=== PATIENT | male | born 1950 | race African-American/Black ===

== ENCOUNTER 2017-03-17 12:51 | Emergency (ER) | payer MEDICARE, OTHER ==
[2017-03-17 13:01] VITALS: RESP 16
[2017-03-17 13:19] LABS: Glucose,Whole Blood 199 mg/dL (75-99)
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
[2017-03-17] MEDS ORDERED: amLODIPine 5 MG TAB PO STA (13:46)
[2017-03-17] MEDS ORDERED: cloNIDine HCL 0.2 MG TAB PO STA (13:48)
[2017-03-17] MEDS ORDERED: ATENOLOL 25 MG TAB PO STA (13:48)
[2017-03-17 14:58] VITALS: PULSE 77; TEMP 97.8
[2017-03-17] MEDS ORDERED: LORazepam 1 MG TAB PO STA (15:00)
[2017-03-17 15:43] VITALS: BP 196/90
== END 2017-03-17 15:52 | disposition home or self-care (01) ==
LOC: EC 12:51
DX: R45.4 Irritability and anger (principal); I10 Essential (primary) hypertension; E11.9 Type 2 diabetes mellitus without complications; Z88.5 Allergy status to narcotic agent; Z88.6 Allergy status to analgesic agent; Z88.8 Allergy status to other drugs, medicaments and biological substances; Z79.4 Long term (current) use of insulin; Z79.899 Other long term (current) drug therapy
CPT/HCPCS: 36415; 80306; 82075; 99284

== ENCOUNTER → 2017-03-24 | Outpatient (CLI) | payer MEDICARE, OTHER ==
[2017-03-24 11:33] LABS: Basophils # (A) 0.1 k/uL (0-0.2); Basophils % (A) 1 %; CH 26.5; CHCM 30.7; Eosinophils # (A) 0.1 k/uL (0-0.7); Eosinophils % (A) 1 %; HCT 40.4 % (39.0-53.0); HDW 2.54; HGB 12.1 gm/dL (13.0-17.5); Hypochromasia Moderate; Luc # (Auto) 0.24; Luc % (Auto) 4; Lymphocytes # (A) 2.2 k/uL (1.0-4.8); Lymphocytes % (A) 32 %; MCH 25.9 pg (25.0-35.0); MCHC 29.9 g/dL (31.0-37.0); MCV 86.8 fL (80.0-100.0); Monocytes # (A) 0.4 k/uL (0-1.0); Monocytes % (A) 6 %; Neutrophils % (A) 57 %; RBC 4.65 m/uL (4.30-5.90); RDW 14.7 % (11.5-15.5); WBC (Perox) 6.95
[2017-03-24 11:38] LABS: ALT 40 U/L (21-72); AST 27 U/L (17-59); Alkaline Phosphatase 111 U/L (38-126); Anion Gap 16 mmol/L; Blood Urea Nitrogen 17 mg/dL (9-20); Calcium 10.7 mg/dL (8.4-10.2); Carbon Dioxide 23 mmol/L (22-30); Chloride 107 mmol/L (98-107); Cholesterol 234 mg/dL (<200); Glucose 168 mg/dL (74-99); HDL Cholesterol 56 mg/dL (40-60); Iron 71 ug/dL (49-181); Non-African American GFR(MDRD) >60 (>60 ml/min/1.73 sqM); Potassium 4.2 mmol/L (3.5-5.1); Sodium 146 mmol/L (137-145); Total Bilirubin 0.4 mg/dL (0.2-1.3); Total Protein 8.4 g/dL (6.3-8.2); Triglycerides 289 mg/dL (<150)
[2017-03-24 11:46] LABS: Total Iron Binding Capacity 322 ug/dL (261-462)
== END | disposition home or self-care (01) ==
LOC: LABWHC1 10:08
PROVIDERS: ATTEND Family Medicine
DX: E11.9 Type 2 diabetes mellitus without complications (principal)
CPT/HCPCS: 36415; 80053; 80061; 82728; 83036; 83540; 83550; 85025

== ENCOUNTER 2017-06-11 14:58 | Emergency (ER) | payer MEDICARE, OTHER ==
[2017-06-11 15:18] VITALS: RESP 16
[2017-06-11 15:28] VITALS: TEMP 99.7
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
[2017-06-11 17:36] VITALS: BP 165/77; PULSE 55
== END 2017-06-11 17:36 | disposition home or self-care (01) ==
LOC: EC 14:58
DX: Z76.0 Encounter for issue of repeat prescription (principal); M54.9 Dorsalgia, unspecified; G89.29 Other chronic pain; E11.9 Type 2 diabetes mellitus without complications; I10 Essential (primary) hypertension; Z79.4 Long term (current) use of insulin; Z79.899 Other long term (current) drug therapy; Z88.6 Allergy status to analgesic agent; Z88.8 Allergy status to other drugs, medicaments and biological substances
CPT/HCPCS: 99282

== ENCOUNTER 2017-06-21 16:52 | Emergency (ER) | payer MEDICARE, OTHER ==
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
[2017-06-21] MEDS ORDERED: cloNIDine HCL 0.1 MG TAB PO STA (17:43)
[2017-06-21] MEDS ORDERED: HYDROmorphone 1 MG/ML 1 ML SYRINGE IM STA (17:43)
[2017-06-21] MEDS ORDERED: ONDANSETRON ODT 4 MG TAB PO STA (17:45)
[2017-06-21] MEDS ORDERED: LISINOPRIL 20 MG TAB PO STA (18:47)
[2017-06-21 19:40] VITALS: BP 185/86; PULSE 69; RESP 16; TEMP 98.6
== END 2017-06-21 19:39 | disposition home or self-care (01) ==
LOC: EC 16:52
DX: M54.5 Low back pain (principal); F11.20 Opioid dependence, uncomplicated; M21.932 Unspecified acquired deformity of left forearm; E11.9 Type 2 diabetes mellitus without complications; I10 Essential (primary) hypertension; Z88.6 Allergy status to analgesic agent; Z88.5 Allergy status to narcotic agent; Z88.8 Allergy status to other drugs, medicaments and biological substances; Z79.4 Long term (current) use of insulin; Z79.899 Other long term (current) drug therapy
CPT/HCPCS: 99283; 96372; J1170

== ENCOUNTER 2017-08-21 17:31 | Emergency (ER) | payer MEDICARE, OTHER ==
[2017-08-21 17:55] VITALS: BP 151/72; PULSE 71; RESP 16; TEMP 99.1
[2017-08-21] MEDS ORDERED: ACET/COD 300 MG/30 MG STARTER PACK 6 TAB BTL PO STA (18:12)
[2017-08-21] MEDS ORDERED: CYCLOBENZAPRINE 10MG STARTER 3 TAB BTL PO STA (18:13)
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
== END 2017-08-21 19:03 | disposition home or self-care (01) ==
LOC: EC 17:31
DX: G89.29 Other chronic pain (principal); M54.5 Low back pain; E11.9 Type 2 diabetes mellitus without complications; F20.9 Schizophrenia, unspecified; F31.9 Bipolar disorder, unspecified; Z79.899 Other long term (current) drug therapy; Z88.5 Allergy status to narcotic agent; Z88.6 Allergy status to analgesic agent; Z88.8 Allergy status to other drugs, medicaments and biological substances
CPT/HCPCS: 99283

== ENCOUNTER 2017-12-22 23:58 | Emergency (ER) | payer MEDICARE, OTHER ==
[2017-12-23] MEDS ORDERED: HYDROcodone/APAP 10-325MG 1 EACH TAB PO ONE (00:29)
[2017-12-23] MEDS ORDERED: cloNIDine HCL 0.2 MG TAB PO STA (00:39)
--- NOTE | 2017-12-23 01:04 | US ---
EXAMINATION TYPE: US duplex aorta DATE OF EXAM: 12/23/2017 COMPARISON: NONE CLINICAL HISTORY: Back pain, that radiates to his leg. EXAM MEASUREMENTS: Patient 5'8" 240lbs, carrying most of his weigh in his abdomen, 2 hours post prandial. Exam not diagn ostic. Abdominal Aorta: Proximal: obscured by bowel gas Mid: obscured by bowel gas Distal: 1.4cm Bifurcation: obscured by bowel gas IMPRESSION: There is limited visualization of the abdominal aorta. The distal aorta measures 1.4 cm. No aneurysm seen.
[2017-12-23] MEDS ORDERED: DIAZEPAM 5 MG TAB PO STA (01:18)
[2017-12-23 01:39] LABS: Appearance,Urine Clear (Clear); Bilirubin,Urine Negative (Negative); Blood,Urine Negative (Negative); Color,Urine Light Yellow; Glucose,Urine (UA) Negative (Negative); Hyaline Casts,Urine 4 /lpf (0-2); Ketones,Urine Negative (Negative); Leukocyte Esterase,Urine Negative (Negative); Mucus,Urine Rare /hpf; Nitrite,Urine Negative (Negative); Protein,Urine 2+ (Negative); Specific Gravity,Urine 1.011 (1.001-1.035); Sperm,Urine Rare /hpf; Squamous Epithelial Cell,Urine <1 /hpf (0-4); Urobilinogen,Urine <2.0 mg/dL (<2.0); WBC,Urine 1 /hpf (0-5)
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
[2017-12-23 02:22] VITALS: BP 172/81; PULSE 115; RESP 16; TEMP 98.7
== END 2017-12-23 02:22 | disposition home or self-care (01) ==
LOC: EC 23:58
DX: M54.5 Low back pain (principal); G89.29 Other chronic pain; F11.20 Opioid dependence, uncomplicated; Z76.0 Encounter for issue of repeat prescription; E11.9 Type 2 diabetes mellitus without complications; F31.9 Bipolar disorder, unspecified; F41.9 Anxiety disorder, unspecified; F20.9 Schizophrenia, unspecified; Z79.4 Long term (current) use of insulin; Z79.899 Other long term (current) drug therapy; Z88.6 Allergy status to analgesic agent; Z88.8 Allergy status to other drugs, medicaments and biological substances
CPT/HCPCS: 81001; 93979; 99284

== ENCOUNTER 2018-02-25 14:12 | Emergency (ER) | payer MEDICARE, OTHER ==
[2018-02-25 14:47] VITALS: BP 168/79; PULSE 80; RESP 18; TEMP 99.2
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
== END 2018-02-25 15:56 | disposition home or self-care (01) ==
LOC: EC 14:12
DX: M54.5 Low back pain (principal); M51.36 Other intervertebral disc degeneration, lumbar region; S16.1XXA Strain of muscle, fascia and tendon at neck level, initial encounter; M46.96 Unspecified inflammatory spondylopathy, lumbar region; E11.36 Type 2 diabetes mellitus with diabetic cataract; F20.9 Schizophrenia, unspecified; F31.9 Bipolar disorder, unspecified; Z79.4 Long term (current) use of insulin; Z79.899 Other long term (current) drug therapy; Z88.6 Allergy status to analgesic agent; Z88.5 Allergy status to narcotic agent; Z88.8 Allergy status to other drugs, medicaments and biological substances; W10.9XXA Fall (on) (from) unspecified stairs and steps, initial encounter; Y92.009 Unspecified place in unspecified non-institutional (private) residence as the place of occurrence of the external cause; Y93.89 Activity, other specified
CPT/HCPCS: 72100; 99283

== ENCOUNTER 2018-02-26 02:26 | Emergency (ER) | payer MEDICARE, OTHER | END 2018-02-26 05:00 | disposition home or self-care (01) | LOC: EC 02:26 | DX: G89.29 Other chronic pain (principal); M54.5 Low back pain; I10 Essential (primary) hypertension; E11.9 Type 2 diabetes mellitus without complications; Z79.4 Long term (current) use of insulin; Z79.82 Long term (current) use of aspirin; Z79.899 Other long term (current) drug therapy; Z88.5 Allergy status to narcotic agent; Z88.6 Allergy status to analgesic agent; Z88.8 Allergy status to other drugs, medicaments and biological substances; W01.0XXA Fall on same level from slipping, tripping and stumbling without subsequent striking against object, initial encounter | CPT/HCPCS: 96372; 99283 ==

== ENCOUNTER 2018-03-24 13:21 | Emergency (ER) | payer MEDICARE, OTHER ==
[2018-03-24 13:25] VITALS: BP 169/79; PULSE 77; RESP 18; TEMP 98.5
[2018-03-24] MEDS ORDERED: HYDROcodone/APAP 10-325MG 1 EACH TAB PO ONE (13:59)
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
--- NOTE | 2018-03-24 14:38 | CT ---
EXAMINATION TYPE: CT brain cspine wo con DATE OF EXAM: 03/24/2018 COMPARISON: CT brain July 25, 2017. CT cervical spine September 13, 2016. HISTORY: Dizziness and fall injury with neck pain. CT DLP: 1704.3 mGycm. Automated Exposure Control for Dose Reduction was Utilized. TECHNIQUE: CT scan of the head and cervical spine are performed without contrast. FINDINGS: There is no acute intracranial hemorrhage or midline shift identified. There is ventricul ar and sulcal prominence consistent with diffuse cerebral atrophy. There is encephalomalacia left po sterior watershed axial image 31 with interval progression from prior CT. There is more vague area of low-attenuation high left frontal parietal white matter. The globes are intact and the visualized si nuses are clear. The calvarium is intact. Cervical spine is visualized in its entirety from C1 through upper thoracic levels and demonstrates s light S-shaped scoliotic curvature on coronal images and straightening of spine on sagittal images wi thout evidence of acute fracture or dislocation. Prevertebral soft tissue appears within normal limi ts. The C1-C2 articulation is within normal limits on the coronal images. Vertebral body heights are maintained. There is mild to moderate spurring and disc space narrowing C5 -C6 and C6-C7 levels with posterior spur disc complexes effacing anterior thecal sac. Review of axial images shows multilevel uncovertebral facet degenerative changes bilaterally contributing to multile jp neural foraminal narrowing. Thyroid gland is normal in size. Lung apices are clear. There is dila harish proximal esophagus redemonstrated which may warrant follow-up. Correlate clinically. There is mod erate calcified plaque bilateral carotid bulb level redemonstrated. IMPRESSION: 1. There is no acute fracture or dislocation evident in the cervical spine. Multilevel degenerative c hanges seen as detailed above. 2. No acute intracranial hemorrhage or midline shift is seen. Diffuse cerebral atrophy with old left posterior watershed infarct identified. There is some age-indeterminate ischemic change new from prio r exam superior and anterior to this left frontal parietal deep white matter near axial image 37 note d. Can't exclude acute/subacute ischemia. Consider MRI follow-up based on clinical suspicion.
[2018-03-24] MEDS ORDERED: SODIUM CHLORIDE 0.9% 1,000 ML IV STA (15:16)
== END 2018-03-24 15:32 | disposition left against medical advice (07) ==
LOC: EC 13:21
DX: I67.82 Cerebral ischemia (principal); M54.2 Cervicalgia; M54.5 Low back pain; M51.36 Other intervertebral disc degeneration, lumbar region; E11.9 Type 2 diabetes mellitus without complications; I10 Essential (primary) hypertension; F25.0 Schizoaffective disorder, bipolar type; F25.1 Schizoaffective disorder, depressive type; Z86.73 Personal history of transient ischemic attack (TIA), and cerebral infarction without residual deficits; Z79.4 Long term (current) use of insulin; Z79.82 Long term (current) use of aspirin; Z79.899 Other long term (current) drug therapy; Z88.6 Allergy status to analgesic agent; Z88.8 Allergy status to other drugs, medicaments and biological substances; W01.0XXA Fall on same level from slipping, tripping and stumbling without subsequent striking against object, initial encounter; W20.8XXA Other cause of strike by thrown, projected or falling object, initial encounter; Y92.008 Other place in unspecified non-institutional (private) residence as the place of occurrence of the external cause; Y93.01 Activity, walking, marching and hiking
CPT/HCPCS: 70450; 72110; 72125; 99284

== ENCOUNTER 2018-04-20 01:53 | Emergency (ER) | payer MEDICARE, OTHER ==
[2018-04-20 02:11] VITALS: BP 174/74; PULSE 82; RESP 18; TEMP 99.4
[2018-04-20] MEDS ORDERED: HYDROcodone/APAP 5-325MG 1 EACH TAB PO STA (03:15)
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
== END 2018-04-20 03:47 | disposition home or self-care (01) ==
LOC: EC 01:53
DX: Z76.0 Encounter for issue of repeat prescription (principal); E11.9 Type 2 diabetes mellitus without complications; I10 Essential (primary) hypertension; M19.90 Unspecified osteoarthritis, unspecified site; F41.9 Anxiety disorder, unspecified; F31.9 Bipolar disorder, unspecified; F20.9 Schizophrenia, unspecified; Z86.73 Personal history of transient ischemic attack (TIA), and cerebral infarction without residual deficits; Z79.4 Long term (current) use of insulin; Z79.84 Long term (current) use of oral hypoglycemic drugs; Z79.899 Other long term (current) drug therapy
CPT/HCPCS: 99281

== ENCOUNTER 2018-04-20 04:10 | Emergency (ER) | payer MEDICARE, OTHER ==
[2018-04-20 04:22] VITALS: TEMP 98.8
[2018-04-20] MEDS ORDERED: DIPH,PERTUS(ACELL)TETVAC-LF 0.5 ML VIAL IM ONE (05:28)
[2018-04-20 05:55] VITALS: RESP 16
--- NOTE | 2018-04-20 05:55 | CT ---
EXAMINATION TYPE: CT brain vikas lockhart DATE OF EXAM: 04/20/2018 COMPARISON: 03/24/2018 HISTORY: fall CT DLP: 1463.50 mGycm Automated exposure control for dose reduction was used. TECHNIQUE: CT scan of the head and cervical spine are performed without contrast. FINDINGS: Ventricles of normal size. There is old 4 cm triangular-shaped infarct in the left painter and body work ior temporal lobe. There is no mass effect nor midline shift. There is no sign of intracranial hemorr demetra. The calvarium is intact. There is straightening of the cervical vertebra. There is mild spurring anteriorly at the 3 4 C4-5 C5 -6 C6-7. There is multilevel posterior endplate spur formation and more severe at C5-6 C6-7 with some encroachment on the spinal canal. The facet joints are intact. Skull base appears intact. There is n o evidence of a fracture. IMPRESSION: Old left posterior temporal lobe cortical infarct. No acute intracranial abnormality. No change. Spondylotic changes in the cervical spine. No fracture. No change.
--- NOTE | 2018-04-20 05:56 | XR ---
EXAMINATION TYPE: XR knee complete RT DATE OF EXAM: 04/20/2018 COMPARISON: NONE HISTORY: Knee pain after a fall TECHNIQUE: 3 views FINDINGS: There is spurring in the patella. There is spurring at the tibial tubercle. There is old di stal femur bone infarct. I see no fracture nor dislocation. There is no sign of joint effusion. Joint spaces are fairly normal. IMPRESSION: No acute abnormality of the right knee. No fracture.
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
[2018-04-20 07:29] VITALS: BP 180/88; PULSE 78
== END 2018-04-20 07:22 | disposition home or self-care (01) ==
LOC: EC 04:10
DX: S80.211A Abrasion, right knee, initial encounter (principal); S60.512A Abrasion of left hand, initial encounter; S09.90XA Unspecified injury of head, initial encounter; S19.9XXA Unspecified injury of neck, initial encounter; I69.351 Hemiplegia and hemiparesis following cerebral infarction affecting right dominant side; E11.9 Type 2 diabetes mellitus without complications; I10 Essential (primary) hypertension; M19.90 Unspecified osteoarthritis, unspecified site; F20.9 Schizophrenia, unspecified; F31.9 Bipolar disorder, unspecified; Z79.4 Long term (current) use of insulin; Z79.82 Long term (current) use of aspirin; Z79.899 Other long term (current) drug therapy; Z88.5 Allergy status to narcotic agent; Z88.6 Allergy status to analgesic agent; Z88.8 Allergy status to other drugs, medicaments and biological substances; Z98.890 Other specified postprocedural states; Z23 Encounter for immunization; W01.198A Fall on same level from slipping, tripping and stumbling with subsequent striking against other object, initial encounter; Y93.01 Activity, walking, marching and hiking; Y92.89 Other specified places as the place of occurrence of the external cause
CPT/HCPCS: 70450; 72125; 90471; 90715; 99281; 99284

== ENCOUNTER 2018-04-25 20:42 | Emergency (ER) | payer MEDICARE, OTHER ==
[2018-04-25 20:51] VITALS: RESP 18; TEMP 99.6
[2018-04-25] MEDS ORDERED: KETOROLAC 30 MG/ML 1 ML VIAL IM STA (21:08)
[2018-04-25 21:25] VITALS: BP 177/82; PULSE 74
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
== END 2018-04-25 22:31 | disposition home or self-care (01) ==
LOC: EC 20:42
DX: G89.29 Other chronic pain (principal); M25.561 Pain in right knee; M25.532 Pain in left wrist; E11.9 Type 2 diabetes mellitus without complications; I10 Essential (primary) hypertension; F20.9 Schizophrenia, unspecified; F31.9 Bipolar disorder, unspecified; F41.9 Anxiety disorder, unspecified; Z86.73 Personal history of transient ischemic attack (TIA), and cerebral infarction without residual deficits; Z79.4 Long term (current) use of insulin; Z79.82 Long term (current) use of aspirin; Z79.899 Other long term (current) drug therapy; Z88.5 Allergy status to narcotic agent; Z88.6 Allergy status to analgesic agent; Z88.8 Allergy status to other drugs, medicaments and biological substances
CPT/HCPCS: 99283; 96372; J1885

== ENCOUNTER 2018-05-13 12:28 | Inpatient (IN) | payer MEDICARE, OTHER ==
--- NOTE | 2018-05-13 15:12 | CT ---
EXAMINATION TYPE: CT brain [facility] DATE OF EXAM: 05/13/2018 COMPARISON: HISTORY: Pain post fall. CT DLP: 1212.4 mGycm, Automated exposure control for dose reduction was used. CONTRAST: Patient injected with mL of . CT of the brain is performed utilizing 3 mm thick sections through the posterior fossa and 3 mm thick sections through the remaining calvarium. Study is performed within 24 hours of arrival to the hospital. No abnormal hyperdensity is present to suggest an acute intracranial hemorrhage. No mass lesion is evident. There is an old left watershed infarct. Some ischemic change is present in the anterior left watershed region which is an interval finding. C orrelate with the patient's symptoms. This is age indeterminant. Ventricles and sulci are appropriate for the patient age. Paranasal sinuses and mastoid air cells within the [id number] are clear. IMPRESSIONS: 1. There may be an acute to subacute left frontal watershed infarct. 2. Old left parieto-occipital watershed infarct. CT cervical spine. COMPARISON: None CT of the cervical spine is performed in the axial plane at 2 mm thick sections. Reconstructed image s in the coronal, and sagittal plane are reviewed on the computer. No acute fractures are evident. Vertebral body alignment is straightened. There is diffuse narrowing of disc height. This appears greatest at the C5-6 level. Vertebral body heights are preserved. Endplate spurring is present at the superior endplate of C6. This has moderate anterior thecal sac co mpression slightly greater in the left paracentral region in the right. Borderline spinal canal sten osis is present posterior to the spurring. Uncovertebral joint hypertrophy is present C7-T1, C6-7, C5-6 and to a lesser degree C4-5 and left C3- 4 contributing to moderate foraminal narrowing. IMPRESSIONS: 1. Spinal canal stenosis secondary to endplate spurring C6-7. 2. Uncovertebral joint hypertrophy contributing to bilateral foraminal narrowing into lower cervical spine
[2018-05-13] MEDS ORDERED: SODIUM CHLORIDE 0.9% 1,000 ML IV STA ×2 (15:25)
[2018-05-13] MEDS ORDERED: SODIUM CHLORIDE 0.9% 500 ML IV STA (15:25)
[2018-05-13] MEDS ORDERED: ASPIRIN 325 MG TAB PO STA (15:25)
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
[2018-05-13 16:24] LABS: Basophils # (A) 0.1 k/uL (0-0.2); Basophils % (A) 1 %; Eosinophils # (A) 0.2 k/uL (0-0.7); Eosinophils % (A) 4 %; HCT 35.7 % (39.0-53.0); HGB 11.3 gm/dL (13.0-17.5); Hypochromasia Slight; Lymphocytes # (A) 2.6 k/uL (1.0-4.8); Lymphocytes % (A) 36 %; MCH 26.1 pg (25.0-35.0); MCHC 31.5 g/dL (31.0-37.0); MCV 82.8 fL (80.0-100.0); Mean Platelet Volume 8.3; Monocytes # (A) 0.3 k/uL (0-1.0); Monocytes % (A) 5 %; Neutrophils # (A) 3.7 k/uL (1.3-7.7); Neutrophils % (A) 52 %; Platelet Count 202 k/uL (150-450); RBC 4.32 m/uL (4.30-5.90); RDW 14.8 % (11.5-15.5); WBC 7.1 k/uL (3.8-10.6)
[2018-05-13 16:33] LABS: Partial Thromboplastin Time 22.7 sec (22.0-30.0); Prothrombin Time 10.1 sec (9.0-12.0)
[2018-05-13 16:39] LABS: Albumin 4.3 g/dL (3.5-5.0); Potassium 5.3 mmol/L (3.5-5.1); Total Bilirubin 0.3 mg/dL (0.2-1.3); Total Protein 7.4 g/dL (6.3-8.2)
--- NOTE | 2018-05-13 16:48 | US ---
EXAMINATION TYPE: US carotid duplex BILAT DATE OF EXAM: 05/13/2018 COMPARISON: CT Brain and C spine CLINICAL HISTORY: Stenosis. EC patient with garbled speech EXAM MEASUREMENTS: RIGHT: Peak Systolic Velocity (PSV) cm/sec ----- Right CCA: 81.6 ----- Right ICA: 156.9 ----- Right ECA: 94.7 ICA/CCA ratio: 1.9 RIGHT: End Diastole cm/sec ----- Right CCA: 21.0 ----- Right ICA: 50.5 ----- Right ECA: 12.3 LEFT: Peak Systolic Velocity (PSV) cm/sec ----- Left CCA: 61.8 ----- Left ICA: inaudible and absent color flow mid and distal ICA ----- Left ECA: 127.1 ICA/CCA ratio: 1.1 achieved using Left Carotid Bulb PSV/ CCA LEFT: End Diastole cm/sec ----- Left CCA: 11.2 ----- Left ICA: NA ----- Left ECA: 15.0 VERTEBRALS (direction of flow): Right Vertebral: Antegrade Left Vertebral: Antegrade Rhythm: Normal High bifurcation is noted bilaterally. Abnormally elevated PSV proximal and distal right ICA with irr egular wall changes. Inaudible PW Arterial Doppler noted at Left ICA proximally and distally with absent color flow also n oted Left ICA. Left carotid bulb appears patient. Moderate to severe wall changes are seen at left ca rotid bifurcation. Poor to no color filling is also noted Left ECA distally. IMPRESSION: There is evidence of occlusion of the left internal carotid artery. The images and measu rements suggest 50-70% stenosis in the right internal carotid artery. There is antegrade flow in the vertebral arteries. Criteria for Assigning % of Stenosis / Diameter reduction (Estimation based on the indirect measurements of the internal carotid artery velocities (ICA PSV). 1. Normal (no stenosis)=ICA PSV < 125 cm/s: ratio < 2.0: ICA EDV<40 cm/s. 2. Less than 50% stenosis=ICA PSV < 125 cm/s: ratio < 2.0: ICA EDV<40 cm/s. 3. 50 to 69% stenosis=ICA PSV of 125 to 230 cm/s: ration 2.0 ? 4.0: ICA EDV 40-100 cm/s. 4. Greater than 70% stenosis to near occlusion= ICA PSV > 230 cm/s: ratio > 4.0: ICA EDV > 100 cm/s. 5. Near occlusion= ICA PSV velocities may be low or undetectable: variable ratio and ICA EDV. 6. Total occlusion=unable to detect flow.
[2018-05-13 16:54] LABS: Creatine Kinase 157 U/L (55-170)
[2018-05-13 17:06] LABS: Creatine Kinase MB 1.5 ng/mL (0.0-2.4); Troponin I <0.012 ng/mL (0.000-0.034)
[2018-05-13] MEDS: SODIUM CHLORIDE 0.9% 1,000 ML IV SCH (17:16)
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
[2018-05-13] MEDS ORDERED: ATORVASTATIN 80 MG TAB PO SCH (21:00)
[2018-05-13] MEDS: hydrALAZINE HCL 25 MG TAB PO SCH (21:40)
[2018-05-13] MEDS: LISINOPRIL 20 MG TAB PO SCH (21:40)
[2018-05-13] MEDS: CYCLOBENZAPRINE 10 MG TAB PO SCH (21:40)
[2018-05-13] MEDS ORDERED: HYDROcodone/APAP 10-325MG 1 EACH TAB PO SCH (22:00)
[2018-05-14] MEDS: SODIUM CHLORIDE 0.9% 1,000 ML IV SCH ×3 (03:28→21:04)
[2018-05-14 06:18] LABS: Glucose,Whole Blood 208 mg/dL (75-99)
[2018-05-14 06:24] LABS: Basophils % (A) 1 %; Eosinophils # (A) 0.1 k/uL (0-0.7); Eosinophils % (A) 2 %; HCT 32.9 % (39.0-53.0); HGB 10.3 gm/dL (13.0-17.5); Hypochromasia Slight; Lymphocytes # (A) 2.2 k/uL (1.0-4.8); Lymphocytes % (A) 37 %; MCHC 31.2 g/dL (31.0-37.0); MCV 83.2 fL (80.0-100.0); Mean Platelet Volume 8.9; Monocytes # (A) 0.3 k/uL (0-1.0); Monocytes % (A) 6 %; Neutrophils # (A) 3.2 k/uL (1.3-7.7); Neutrophils % (A) 52 %; Platelet Count 202 k/uL (150-450); RBC 3.95 m/uL (4.30-5.90); RDW 14.5 % (11.5-15.5)
[2018-05-14 06:36] LABS: Calcium 9.3 mg/dL (8.4-10.2); Magnesium 1.7 mg/dL (1.6-2.3); Potassium 4.9 mmol/L (3.5-5.1)
[2018-05-14] MEDS: HYDROcodone/APAP 10-325MG 1 EACH TAB PO PRN ×3 (06:49→23:26)
[2018-05-14] MEDS: PANTOPRAZOLE 40 MG TABLET PO SCH (06:49)
[2018-05-14] MEDS: CARVEDILOL 12.5 MG TAB PO SCH ×2 (06:49→15:47)
[2018-05-14] MEDS: INSULIN ASPART 100 UNIT/ML 1 ML 10 ML VIAL SQ SCH ×4 (06:51→20:53)
[2018-05-14] MEDS: FERROUS SULFATE 325 MG TAB PO SCH (08:34)
[2018-05-14] MEDS: CHOLECALCIFEROL 1,000 UNIT TAB PO SCH (08:34)
[2018-05-14] MEDS: SPIRONOLACTONE-HCTZ 25-25MG 1 EACH TAB PO SCH ×2 (08:34→21:04)
[2018-05-14] MEDS: FUROSEMIDE 40 MG TAB PO SCH (08:35)
[2018-05-14] MEDS: LISINOPRIL 20 MG TAB PO SCH ×2 (08:35→21:04)
[2018-05-14] MEDS: hydrALAZINE HCL 25 MG TAB PO SCH ×2 (08:35→21:04)
[2018-05-14] MEDS: amLODIPine 10 MG TAB PO SCH (08:35)
[2018-05-14] MEDS: CYCLOBENZAPRINE 10 MG TAB PO SCH ×3 (08:35→21:04)
[2018-05-14] MEDS: ASPIRIN 325 MG TAB PO SCH (08:36)
[2018-05-14] MEDS ORDERED: hydrALAZINE HCL 25 MG TAB PO SCH (09:00)
[2018-05-14] MEDS ORDERED: NON-FORMULARY DRUG (Aspirin Ec 325 MG) PO SCH (09:00)
[2018-05-14] MEDS ORDERED: LISINOPRIL 20 MG TAB PO SCH (09:00)
--- NOTE | 2018-05-14 11:41 | ECHOF ---
Referral Reason:Thrombus MEASUREMENTS -------- HEIGHT: 170.2 cm WEIGHT: 98.4 kg BP: 165/85 RVIDd: 3.4 cm (< 3.3) IVSd: 1.2 cm (0.6 - 1.1) LVIDd: 5.4 cm (3.9 - 5.3) LVPWd: 1.1 cm (0.6 - 1.1) IVSs: 1.5 cm LVIDs: 3.8 cm LVPWs: 1.9 cm LA Diam: 3.3 cm (2.7 - 3.8) LAESV Index (A-L): 23.66 ml/m Ao Diam: 3.8 cm (2.0 - 3.7) AV Cusp: 2.4 cm (1.5 - 2.6) MV EXCURSION: 15.965 mm (> 18.000) MV EF SLOPE: 88 mm/s (70 - 150) EPSS: 0.5 cm MV E Pardeep: 1.13 m/s MV DecT: 221 ms MV A Pardeep: 1.00 m/s MV E/A Ratio: 1.13 FINDINGS -------- Sinus rhythm. This was a technically excellent study. The left ventricular size is normal. There is borderline concentric left ventricular hypertrophy. Overall left ventricular systolic function is normal with, an EF between 60 - 65 %. The right ventricle is mildly enlarged. Normal LA size by volume 22+/-6 ml/m2. The right atrium is normal in size. The aortic valve is trileaflet and appears structurally normal. Mild mitral annular calcification present. The tricuspid valve appears structurally normal. Trace/mild (physiologic) pulmonic regurgitation. The aortic root is dilated measuring 3.8cm. Normal inferior vena cava with normal inspiratory collapse consistent with estimated right atrial pre ssure of 5 mmHg. There is no pericardial effusion. CONCLUSIONS -------- 1. Sinus rhythm. 2. This was a technically excellent study. 3. The left ventricular size is normal. 4. There is borderline concentric left ventricular hypertrophy. 5. Overall left ventricular systolic function is normal with, an EF between 60 - 65 %. 6. The right ventricle is mildly enlarged. 7. Normal LA size by volume 22+/-6 ml/m2. 8. The right atrium is normal in size. 9. The aortic valve is trileaflet and appears structurally normal. 10. Mild mitral annular calcification present. 11. The tricuspid valve appears structurally normal. 12. Trace/mild (physiologic) pulmonic regurgitation. 13. The aortic root is dilated measuring 3.8cm. 14. Normal inferior vena cava with normal inspiratory collapse consistent with estimated right atrial pressure of 5 mmHg. 15. There is no pericardial effusion. SECURITY SYSTEMS MANAGER: Josefina Ferraro RDCS
[2018-05-14 11:43] LABS: Glucose,Whole Blood 214 mg/dL (75-99)
[2018-05-14 16:28] LABS: Glucose,Whole Blood 280 mg/dL (75-99)
[2018-05-14 20:45] LABS: Glucose,Whole Blood 134 mg/dL (75-99)
[2018-05-14] MEDS ORDERED: ATORVASTATIN 40 MG TAB PO SCH (21:00)
[2018-05-14] MEDS: QUEtiapine 100 MG TAB PO SCH (21:04)
[2018-05-14] MEDS: ATORVASTATIN 10 MG TAB PO SCH (21:04)
[2018-05-14] MEDS: INSULIN DETEMIR 100 UNIT/ML 10 ML VIAL SQ SCH (21:04)
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
[2018-05-15 05:59] LABS: Glucose,Whole Blood 167 mg/dL (75-99)
[2018-05-15] MEDS: SODIUM CHLORIDE 0.9% 1,000 ML IV SCH ×3 (07:00→21:47)
[2018-05-15] MEDS: INSULIN ASPART 100 UNIT/ML 1 ML 10 ML VIAL SQ SCH ×4 (07:00→21:46)
[2018-05-15] MEDS: CARVEDILOL 12.5 MG TAB PO SCH ×2 (07:01→16:56)
[2018-05-15] MEDS: PANTOPRAZOLE 40 MG TABLET PO SCH (07:01)
[2018-05-15] MEDS: HYDROcodone/APAP 10-325MG 1 EACH TAB PO PRN (08:53)
[2018-05-15] MEDS: CHOLECALCIFEROL 1,000 UNIT TAB PO SCH (08:54)
[2018-05-15] MEDS: HEPARIN SODIUM,PORCINE 5,000 UNIT/ML 1 ML VIAL SQ SCH ×3 (08:54→23:56)
[2018-05-15] MEDS: FERROUS SULFATE 325 MG TAB PO SCH (08:54)
[2018-05-15] MEDS: hydrALAZINE HCL 25 MG TAB PO SCH ×2 (08:55→20:22)
[2018-05-15] MEDS: ASPIRIN 325 MG TAB PO SCH (08:55)
[2018-05-15] MEDS: LISINOPRIL 20 MG TAB PO SCH ×2 (08:55→20:22)
[2018-05-15] MEDS: amLODIPine 10 MG TAB PO SCH (08:55)
[2018-05-15] MEDS: SPIRONOLACTONE-HCTZ 25-25MG 1 EACH TAB PO SCH ×2 (08:56→20:23)
[2018-05-15] MEDS: FUROSEMIDE 40 MG TAB PO SCH (08:56)
[2018-05-15] MEDS: CYCLOBENZAPRINE 10 MG TAB PO SCH ×3 (08:56→20:23)
--- NOTE | 2018-05-15 10:42 | CT ---
EXAMINATION TYPE: CT brain wo con DATE OF EXAM: 05/15/2018 HISTORY: Follow up to left-sided CVA CT DLP: 1174 mGycm. Automated Exposure Control for Dose Reduction was Utilized. TECHNIQUE: CT scan of the head is performed without contrast. COMPARISON: CT brain from 2 days ago on older studies. FINDINGS: There is no acute intracranial hemorrhage or midline shift identified. There is diffuse v entricular and sulcal prominence consistent with diffuse age-related cerebral atrophy. There is low- attenuation in the periventricular white matter consistent with chronic small vessel ischemic change. There is persistent wedge-shaped area of old infarct or encephalomalacia left parietal region at lev el of posterior watershed axial image 35. There is further progression or slightly better visualized prominence of vague hypodense area left frontal lobe axial image 35 consistent with evolving acute in farct in the anterior watershed. Additional areas of encephalomalacia or old infarct in the superior left frontal lobe near axial image 44 redemonstrated. The globes are intact and the visualized sinuse s are clear. IMPRESSION: No acute intracranial hemorrhage or midline shift. There is mild diffuse age-related ce rebral atrophy and mild to moderate chronic small vessel ischemic change redemonstrated. Old left-si ded infarcts are again seen. There is confirmation of new acute/subacute left frontal lobe infarct an terior watershed region.
[2018-05-15 11:32] LABS: Glucose,Whole Blood 165 mg/dL (75-99)
[2018-05-15 11:50] VITALS: BMI 34.4
[2018-05-15 16:31] LABS: Glucose,Whole Blood 167 mg/dL (75-99)
[2018-05-15] MEDS: ATORVASTATIN 10 MG TAB PO SCH (20:22)
[2018-05-15] MEDS: QUEtiapine 100 MG TAB PO SCH (20:22)
[2018-05-15 21:36] LABS: Glucose,Whole Blood 174 mg/dL (75-99)
[2018-05-15] MEDS: INSULIN DETEMIR 100 UNIT/ML 10 ML VIAL SQ SCH (21:46)
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
[2018-05-16] MEDS: PANTOPRAZOLE 40 MG TABLET PO SCH (06:13)
[2018-05-16] MEDS: CARVEDILOL 12.5 MG TAB PO SCH ×2 (06:13→16:56)
[2018-05-16] MEDS: INSULIN ASPART 100 UNIT/ML 1 ML 10 ML VIAL SQ SCH ×4 (06:23→21:06)
[2018-05-16 06:24] LABS: Glucose,Whole Blood 101 mg/dL (75-99)
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
[2018-05-16] MEDS: HYDROcodone/APAP 10-325MG 1 EACH TAB PO PRN ×2 (09:40→16:59)
[2018-05-16] MEDS: HEPARIN SODIUM,PORCINE 5,000 UNIT/ML 1 ML VIAL SQ SCH ×3 (09:42→23:54)
[2018-05-16] MEDS: CHOLECALCIFEROL 1,000 UNIT TAB PO SCH (09:42)
[2018-05-16] MEDS: FUROSEMIDE 40 MG TAB PO SCH (09:42)
[2018-05-16] MEDS: amLODIPine 10 MG TAB PO SCH (09:42)
[2018-05-16] MEDS: ASPIRIN 325 MG TAB PO SCH (09:42)
[2018-05-16] MEDS: CYCLOBENZAPRINE 10 MG TAB PO SCH ×3 (09:43→19:42)
[2018-05-16] MEDS: SPIRONOLACTONE-HCTZ 25-25MG 1 EACH TAB PO SCH ×2 (09:43→19:42)
[2018-05-16] MEDS: LISINOPRIL 20 MG TAB PO SCH ×2 (09:43→19:41)
[2018-05-16] MEDS: FERROUS SULFATE 325 MG TAB PO SCH (09:43)
[2018-05-16] MEDS: hydrALAZINE HCL 25 MG TAB PO SCH ×2 (09:43→19:42)
[2018-05-16 12:14] LABS: Glucose,Whole Blood 225 mg/dL (75-99)
[2018-05-16] MEDS: SODIUM CHLORIDE 0.9% 1,000 ML IV SCH ×2 (13:43→19:42)
[2018-05-16 16:49] LABS: Glucose,Whole Blood 173 mg/dL (75-99)
[2018-05-16] MEDS: ATORVASTATIN 10 MG TAB PO SCH (19:41)
[2018-05-16] MEDS: QUEtiapine 100 MG TAB PO SCH (19:42)
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
[2018-05-16 20:45] LABS: Glucose,Whole Blood 207 mg/dL (75-99)
[2018-05-16] MEDS: INSULIN DETEMIR 100 UNIT/ML 10 ML VIAL SQ SCH (21:06)
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
--- NOTE | 2018-05-16 22:19 | CONS ---
CONSULTATION ADDENDUM: DATE OF CONSULTATION: 05/13/2018 Addendum: Left carotid is totally occluded. MMODL / IJN: [id number] /
[2018-05-17 05:27] LABS: Glucose,Whole Blood 131 mg/dL (75-99)
[2018-05-17] MEDS: INSULIN ASPART 100 UNIT/ML 1 ML 10 ML VIAL SQ SCH ×4 (06:00→20:55)
[2018-05-17] MEDS: PANTOPRAZOLE 40 MG TABLET PO SCH (06:01)
[2018-05-17] MEDS: CARVEDILOL 12.5 MG TAB PO SCH ×2 (06:01→17:59)
[2018-05-17] MEDS: amLODIPine 10 MG TAB PO SCH (10:10)
[2018-05-17] MEDS: SPIRONOLACTONE-HCTZ 25-25MG 1 EACH TAB PO SCH ×2 (10:10→19:48)
[2018-05-17] MEDS: FUROSEMIDE 40 MG TAB PO SCH (10:10)
[2018-05-17] MEDS: hydrALAZINE HCL 25 MG TAB PO SCH ×2 (10:10→19:48)
[2018-05-17] MEDS: CYCLOBENZAPRINE 10 MG TAB PO SCH ×3 (10:10→20:55)
[2018-05-17] MEDS: ASPIRIN 325 MG TAB PO SCH (10:10)
[2018-05-17] MEDS: LISINOPRIL 20 MG TAB PO SCH ×2 (10:11→19:48)
[2018-05-17] MEDS: HEPARIN SODIUM,PORCINE 5,000 UNIT/ML 1 ML VIAL SQ SCH ×2 (10:11→17:59)
[2018-05-17] MEDS: SODIUM CHLORIDE 0.9% 1,000 ML IV SCH ×2 (10:11→18:51)
[2018-05-17 11:48] LABS: Glucose,Whole Blood 204 mg/dL (75-99)
[2018-05-17] MEDS: CHOLECALCIFEROL 1,000 UNIT TAB PO SCH (12:55)
[2018-05-17] MEDS: FERROUS SULFATE 325 MG TAB PO SCH (12:55)
[2018-05-17 16:41] LABS: Glucose,Whole Blood 152 mg/dL (75-99)
[2018-05-17] MEDS: QUEtiapine 100 MG TAB PO SCH (19:48)
[2018-05-17] MEDS: ATORVASTATIN 10 MG TAB PO SCH (19:48)
[2018-05-17 20:49] LABS: Glucose,Whole Blood 239 mg/dL (75-99)
[2018-05-17] MEDS: INSULIN DETEMIR 100 UNIT/ML 10 ML VIAL SQ SCH (20:55)
[2018-05-18] MEDS: SODIUM CHLORIDE 0.9% 1,000 ML IV SCH ×2 (00:17→18:35)
[2018-05-18] MEDS: HEPARIN SODIUM,PORCINE 5,000 UNIT/ML 1 ML VIAL SQ SCH ×4 (00:17→23:53)
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
[2018-05-18 05:51] LABS: Glucose,Whole Blood 164 mg/dL (75-99)
[2018-05-18] MEDS: INSULIN ASPART 100 UNIT/ML 1 ML 10 ML VIAL SQ SCH ×4 (06:09→21:10)
[2018-05-18] MEDS: PANTOPRAZOLE 40 MG TABLET PO SCH (06:10)
[2018-05-18] MEDS: CARVEDILOL 12.5 MG TAB PO SCH ×2 (06:10→17:18)
[2018-05-18] MEDS: FUROSEMIDE 40 MG TAB PO SCH (09:02)
[2018-05-18] MEDS: ASPIRIN 325 MG TAB PO SCH (09:02)
[2018-05-18] MEDS: CYCLOBENZAPRINE 10 MG TAB PO SCH ×3 (09:03→20:59)
[2018-05-18] MEDS: hydrALAZINE HCL 25 MG TAB PO SCH ×2 (09:03→20:59)
[2018-05-18] MEDS: SPIRONOLACTONE-HCTZ 25-25MG 1 EACH TAB PO SCH ×2 (09:03→20:59)
[2018-05-18] MEDS: amLODIPine 10 MG TAB PO SCH (09:03)
[2018-05-18] MEDS: LISINOPRIL 20 MG TAB PO SCH ×2 (09:03→20:59)
[2018-05-18 11:19] LABS: Glucose,Whole Blood 196 mg/dL (75-99)
--- NOTE | 2018-05-18 12:14 | P.PN ---
Subjective Patient resting in bed continues with difficulty with speech. Weakness noted to right arm. Good strength in legs. Patient is requesting discharge home. Hopeful plan is for extended care rehab Objective - Vital Signs Vital signs: Vital Signs Temp 97.0 F L 05/18/18 08:00 Pulse 61 05/18/18 08:00 Resp 18 05/18/18 04:00 BP 161/77 05/18/18 08:00 Pulse Ox 95 05/18/18 08:00 Intake & Output 05/17/18 05/18/18 05/18/18 18:59 06:59 18:59 Intake Total 30 990 250 Output Total 2850 Balance 30 -1860 250 Weight 96.5 kg Intake: IV 30 30 10 Invasive Line 1 30 30 10 Oral 960 240 Output: Urine 2850 Other: Voiding Method Toilet Toilet Urinal Urinal # Voids 0 - Constitutional General appearance: Present: obese - EENT Eyes: Present: PERRLA Ears: bilateral: normal - Neck Neck: Present: normal ROM - Respiratory Respiratory: bilateral: CTA - Cardiovascular Rhythm: regular - Gastrointestinal General gastrointestinal: Present: soft - Integumentary Integumentary: Present: normal - Musculoskeletal Musculoskeletal: Present: right sided weakness - Psychiatric Psychiatric Comment(s): Difficulty with speech noted - Labs CBC & Chem 7: 05/14/18 06:02 05/14/18 06:02 Labs: Abnormal Lab Results - Last 24 Hours (Table) 05/17/18 05/17/18 05/18/18 Range/Units 16:38 20:46 05:50 POC Glucose (mg/dL) 152 H 239 H 164 H (75-99) mg/dL 05/18/18 Range/Units 11:16 POC Glucose (mg/dL) 196 H (75-99) mg/dL - Imaging and Cardiology CT Scan - head: report reviewed (Carotid stenosis noted on duplex) Assessment and Plan Assessment: Assessment Acute CVA with dysarthria and worsening right-sided weakness Acute subacute left frontal infarcts Carotid artery stenosis Uncontrolled hypertension Acute on chronic kidney injury Diabetes type 2 insulin-dependent Diarrhea C. diff negative Plan Continue consultation with neurology and Dr. Blankenship Plan hopeful discharge extended care facility for rehab
[2018-05-18] MEDS: CHOLECALCIFEROL 1,000 UNIT TAB PO SCH (14:02)
[2018-05-18] MEDS: FERROUS SULFATE 325 MG TAB PO SCH (14:02)
[2018-05-18 16:46] LABS: Glucose,Whole Blood 221 mg/dL (75-99)
[2018-05-18 20:29] LABS: Glucose,Whole Blood 253 mg/dL (75-99)
[2018-05-18] MEDS: INSULIN DETEMIR 100 UNIT/ML 10 ML VIAL SQ SCH (20:59)
[2018-05-18] MEDS: QUEtiapine 100 MG TAB PO SCH (20:59)
[2018-05-18] MEDS: ATORVASTATIN 10 MG TAB PO SCH (20:59)
[2018-05-18] MEDS: HYDROcodone/APAP 10-325MG 1 EACH TAB PO PRN (21:26)
[2018-05-19 06:10] LABS: Glucose,Whole Blood 237 mg/dL (75-99)
[2018-05-19] MEDS: INSULIN ASPART 100 UNIT/ML 1 ML 10 ML VIAL SQ SCH ×4 (06:19→21:02)
[2018-05-19] MEDS: PANTOPRAZOLE 40 MG TABLET PO SCH (06:19)
[2018-05-19] MEDS: CARVEDILOL 12.5 MG TAB PO SCH ×2 (06:19→17:52)
[2018-05-19] MEDS: SODIUM CHLORIDE 0.9% 1,000 ML IV SCH ×2 (07:48→10:24)
[2018-05-19] MEDS: HEPARIN SODIUM,PORCINE 5,000 UNIT/ML 1 ML VIAL SQ SCH ×3 (08:47→20:39)
[2018-05-19] MEDS: hydrALAZINE HCL 25 MG TAB PO SCH ×2 (08:48→20:39)
[2018-05-19] MEDS: CYCLOBENZAPRINE 10 MG TAB PO SCH ×3 (08:48→20:39)
[2018-05-19] MEDS: amLODIPine 10 MG TAB PO SCH (08:48)
[2018-05-19] MEDS: LISINOPRIL 20 MG TAB PO SCH ×2 (08:48→20:39)
[2018-05-19] MEDS: SPIRONOLACTONE-HCTZ 25-25MG 1 EACH TAB PO SCH ×2 (08:48→20:39)
[2018-05-19] MEDS: ASPIRIN 325 MG TAB PO SCH (08:48)
[2018-05-19] MEDS: FUROSEMIDE 40 MG TAB PO SCH (08:48)
[2018-05-19] MEDS: HYDROcodone/APAP 10-325MG 1 EACH TAB PO PRN (08:49)
[2018-05-19 12:17] LABS: Glucose,Whole Blood 216 mg/dL (75-99)
--- NOTE | 2018-05-19 12:19 | P.PN ---
Subjective Patient sitting up in bed. Speech is clearer than yesterday. Patient requesting to be discharged home. Awaiting report from neurology for clearance . Awaiting for evaluation from speech therapy and from social worker masters. Objective - Vital Signs Vital signs: Vital Signs Temp 97.3 F L 05/19/18 07:59 Pulse 58 L 05/19/18 07:59 Resp 16 05/19/18 07:59 BP 139/69 05/19/18 07:59 Pulse Ox 100 05/19/18 07:59 Intake & Output 05/18/18 05/19/18 05/19/18 18:59 06:59 18:59 Intake Total 1110 240 Output Total 601 Balance 1110 -601 240 Weight 95.5 kg Intake: IV 30 Invasive Line 1 30 Oral 1080 240 Output: Urine 601 Other: Voiding Method Toilet Urinal - Constitutional General appearance: Present: obese - EENT Eyes: Present: PERRLA Ears: bilateral: normal - Neck Neck: Present: normal ROM - Respiratory Respiratory: bilateral: CTA - Cardiovascular Rhythm: regular - Gastrointestinal General gastrointestinal: Present: soft - Integumentary Integumentary: Present: normal - Neurologic Neurologic: Present: CNII-XII intact - Musculoskeletal Musculoskeletal: Present: right sided weakness - Psychiatric Psychiatric Comment(s): The patient awake and alert as difficulty with speech - Labs CBC & Chem 7: 05/14/18 06:02 05/14/18 06:02 Labs: Abnormal Lab Results - Last 24 Hours (Table) 05/18/18 05/18/18 05/19/18 Range/Units 16:35 20:27 06:08 POC Glucose (mg/dL) 221 H 253 H 237 H (75-99) mg/dL - Imaging and Cardiology CT Scan - head: report reviewed Assessment and Plan Plan: Assessment Acute CVA with dysarthria and right-sided weakness Subacute left frontal infarct Carotid artery disease Uncontrolled hypertension Acute kidney injury prerenal improving Diabetes type 2 insulin-dependent Plan Continue consultation with neurology To follow-up with Dr. Blankenship an outpatient setting Consultation with case assembler and speech therapist Would recommend extended care facility the patient wanting to be discharged home
[2018-05-19] MEDS: FERROUS SULFATE 325 MG TAB PO SCH (12:45)
[2018-05-19] MEDS: CHOLECALCIFEROL 1,000 UNIT TAB PO SCH (12:45)
[2018-05-19 16:51] LABS: Glucose,Whole Blood 210 mg/dL (75-99)
[2018-05-19] MEDS: QUEtiapine 100 MG TAB PO SCH (20:39)
[2018-05-19] MEDS: ATORVASTATIN 10 MG TAB PO SCH (20:39)
[2018-05-19] MEDS: INSULIN DETEMIR 100 UNIT/ML 10 ML VIAL SQ SCH (20:58)
[2018-05-19 21:02] LABS: Glucose,Whole Blood 283 mg/dL (75-99)
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
--- NOTE | 2018-05-19 23:38 | P.PN ---
Subjective Progress Note Date: 05/19/18 This patient is a 68-year-old right-handed -Thai male being evaluated for acute stroke syndrome. Patient continues to demonstrate evidence of acute aphasia and some degree of generalized weakness. He underwent computed tomography scan of the brain yesterday which reveals evidence of a left frontal lobe infarct. We had recommended an MRI of the brain to be done for further evaluation however this had to be canceled as a patient has metal debris in his back. He is unable to go for MRI of the brain at this time. We have recommended a follow-up computed tomography scan of the brain to be done today for comparison and for long-term evaluation. He was seen by vascular surgery yesterday and we are waiting any further recommendations from them. Apparently his carotid arteries are not showing complete occlusion as was reported in the carotid Doppler report. The patient had a follow-up computed tomography scan of the brain today which confirms evidence of a new area of infarction involving the left frontal lobe. We discussed these findings today with the patient. He is unable to have MRI of the brain as he has shrapnel in his back. Patient was seen by vascular surgery. They're recommending a angiogram study to further evaluate his left carotid artery occlusive disease. Apparently this is to be done as outpatient after he has recovered from his acute stroke. The patient continues to demonstrate dysarthric speech. He is to continue to work with speech therapy and physical therapy. We will continue our stroke workup with the patient. We will continue ongoing evaluation for acute stroke in this patient. His overall prognosis at this time remains guarded. The patient states he is very reluctant to go to subacute rehab at the time of discharge. Apparently there is some conflict with the discharge planning and several of his family members. Patient would rather like to go home. We've recommended the patient to follow-up in the outpatient neurology clinic in 3-4 weeks. He is to continue on aspirin daily for secondary stroke prevention. The patient is neurologically stable for discharge home today or tomorrow. We will continue close neurological follow-up with the patient during this admission. This patient's overall prognosis at this time remains guarded. Objective - Vital Signs Vital signs: Vital Signs Temp 97.1 F L 05/19/18 15:20 Pulse 78 05/19/18 15:20 Resp 16 05/19/18 15:20 BP 167/81 05/19/18 15:20 Pulse Ox 99 05/19/18 15:20 Intake & Output 05/19/18 05/19/18 05/20/18 06:59 18:59 06:59 Intake Total 1200 Output Total 601 Balance -601 1200 Weight 95.5 kg Intake: Oral 1200 Output: Urine 601 Other: Voiding Method Toilet Urinal # Voids 2 - Exam Physical examination: PHYSICAL EXAMINATION: Patient is resting comfortably in bed. VITAL SIGNS: Blood pressure is [167/81]. Heart rate is [78]. Respiration is [16] . Temperature is [97.1]. HEENT: Head is atraumatic, neck is supple, there were no carotid bruits. CHEST: Lungs are clear to auscultation and percussion. CARDIAC: S1, S2 normal rate and rhythm. There is no murmur. ABDOMEN: Soft and nontender. Bowel sounds are present. EXTREMITIES: There is no pedal edema. Peripheral pulses are present. Neurological examination: Patient's neurological examination is unchanged from yesterday. Patient continues to demonstrate dysarthric speech and right-sided weakness. Patient has been up and ambulating in his room. He denies any right-sided weakness on examination. - Labs CBC & Chem 7: 05/14/18 06:02 05/14/18 06:02 Labs: Abnormal Lab Results - Last 24 Hours (Table) 05/18/18 05/19/18 05/19/18 Range/Units 20:27 06:08 11:50 POC Glucose (mg/dL) 253 H 237 H 216 H (75-99) mg/dL 05/19/18 Range/Units 16:48 POC Glucose (mg/dL) 210 H (75-99) mg/dL Assessment and Plan (1) Left acute arterial ischemic stroke, MCA (middle cerebral artery) Current Visit: Yes Status: Acute Code(s): I63.512 - CEREB INFRC D/T UNSP OCCLS OR STENOS OF LEFT MID CEREB ART SNOMED Code(s): 688907678 (2) Pain, chronic Current Visit: No Status: Acute Code(s): G89.29 - OTHER CHRONIC PAIN SNOMED Code(s): 71631264 (3) Poorly-controlled hypertension Current Visit: No Status: Chronic Code(s): I10 - ESSENTIAL (PRIMARY) HYPERTENSION SNOMED Code(s): 141398171 (4) Hypertensive encephalopathy Current Visit: No Status: Suspected Code(s): I67.4 - HYPERTENSIVE ENCEPHALOPATHY SNOMED Code(s): 09353505 (5) Altered mental status Current Visit: No Status: Resolved Code(s): R41.82 - ALTERED MENTAL STATUS, UNSPECIFIED SNOMED Code(s): 601083405 Plan: This patient is a 68-year-old right-handed -Thai male admitted to Hospital with symptoms of slurred speech and weakness. He was brought in to the ER at [facility] and was seen by Dr. Gonzáles yesterday. There was evidence of significant dysarthric speech. He was not a candidate for TPA. He was sent for computed tomography scan of the brain which revealed evidence of a acute versus subacute infarct in the left frontal lobe watershed region. He was subsequent admitted to hospital for a complete stroke evaluation. He underwent a carotid Doppler ultrasound which reveals him to have total occlusion of the left internal carotid artery. We have recommended a vascular surgery consultation for further assessment. He is unable to have MRI of the brain is he has shrapnel in his back. We will get a repeat computed tomography scan of the brain today. We did review the results of the CAT scan of the brain done today which does reveal evidence of any acute left frontal lobe infarct. He was evaluated by vascular surgery and apparently there is no surgical intervention planned by Dr. Blankenship. As noted his CAT scan does reveal all of his strokes on his left side. Initial carotid Doppler study did reveal severe stenosis of the left internal carotid artery. We will await and deferred to Dr. Blankenship for any further treatment plans. Patient was seen by Dr. Blankenship today who is recommending a angiogram study of the carotid arteries for further evaluation. This can be done as outpatient. Patient is strongly advised to follow-up with Dr. Blankenship soon after discharge from the hospital for further workup and treatment. Patient continues to demonstrate dysarthric speech. He is to undergo a swallow evaluation as well. Patient likely will require discharge to subacute rehab once he is medically stable. Patient is reluctant to go to rehab at this time. He would rather be discharged to home. We will await further recommendations from discharge planning. We reviewed the results of his recent computed tomography scan of the brain with the patient today in detail. There is area of new infarction involving the left frontal lobe. We recommend the patient to have arrangements made for outpatient speech therapy and physical therapy. He is neurologically stable for discharge home today and should continue on aspirin therapy daily for secondary stroke prevention. His overall prognosis at this time remains very guarded. We have recommended the patient to follow-up in the outpatient neurology clinic in 3-4 weeks for further neurological follow-up. As noted we do recommend that he should have speech therapy arrangements taking care of prior to his discharge either today or tomorrow. Once again he is neurologically stable for discharge home today as he does not wish to go to rehabilitation. Patient is aware that we would like to see him in the outpatient neurology clinic in 3-4 weeks. He is to continue on aspirin daily for secondary stroke prevention. We will continue close neurological follow-up for the patient during this admission. This patient's overall prognosis at this time remains guarded.
[2018-05-20 05:50] LABS: Glucose,Whole Blood 193 mg/dL (75-99)
[2018-05-20 06:16] VITALS: RESP 16
[2018-05-20] MEDS: CARVEDILOL 12.5 MG TAB PO SCH (06:43)
[2018-05-20] MEDS: PANTOPRAZOLE 40 MG TABLET PO SCH (06:43)
[2018-05-20] MEDS: INSULIN ASPART 100 UNIT/ML 1 ML 10 ML VIAL SQ SCH (06:43)
[2018-05-20] MEDS: SODIUM CHLORIDE 0.9% 1,000 ML IV SCH (07:18)
[2018-05-20] MEDS: ASPIRIN 325 MG TAB PO SCH (08:29)
[2018-05-20] MEDS: FUROSEMIDE 40 MG TAB PO SCH (08:29)
[2018-05-20] MEDS: SPIRONOLACTONE-HCTZ 25-25MG 1 EACH TAB PO SCH (08:29)
[2018-05-20] MEDS: CYCLOBENZAPRINE 10 MG TAB PO SCH (08:29)
[2018-05-20] MEDS: HEPARIN SODIUM,PORCINE 5,000 UNIT/ML 1 ML VIAL SQ SCH (08:30)
[2018-05-20] MEDS: LISINOPRIL 20 MG TAB PO SCH (08:30)
[2018-05-20] MEDS: hydrALAZINE HCL 25 MG TAB PO SCH (08:30)
[2018-05-20] MEDS: amLODIPine 10 MG TAB PO SCH (08:30)
[2018-05-20] MEDS: CHOLECALCIFEROL 1,000 UNIT TAB PO SCH (08:30)
[2018-05-20] MEDS: FERROUS SULFATE 325 MG TAB PO SCH (08:30)
[2018-05-20 08:34] VITALS: BP 151/67; PULSE 63; TEMP 97.5
--- NOTE | 2018-05-20 11:26 | P.DS ---
Providers Date of admission: 05/13/18 15:26 Expected date of discharge: 05/20/18 Attending physician: Jese Ruggiero Consults: 05/13/18 15:28 Consult Physician Routine Consulting Provider: Rashad Braden Consult Reason/Comments: cva Do you want consulting provider notified?: Yes 05/14/18 11:00 Consult Physician Urgent Consulting Provider: Hernan Blankenship Consult Reason/Comments: Left carotid artery stenosis and stroke. Do you want consulting provider notified?: Yes Primary care physician: Jese Ruggiero Hospital Course: 68-year-old male was brought to the emergency room with increasing right-sided weakness and slurred speech. Patient was evaluated by neurology speech therapy physical therapy. Recommendation was for rehab and extended care facility patient declined. Defined also home care. The patient then signed AGAINST MEDICAL ADVICE Assessment CVA with dysarthria worsening right-sided weakness Subacute left frontal infarct Carotid artery stenosis Uncontrolled hypertension Acute injury to kidney improved Diabetes type 2 insulin-dependent Plan Patient signed AMA is to follow-up with Dr. Blankenship neurology and family physician Dr. Jese Ruggiero Patient Condition at Discharge: Fair Plan - Discharge Summary Discharge Rx Participant: No New Discharge Prescriptions: No Action Insulin Aspart [NovoLOG (formulary)] See Protocol SQ AC-TID PRN PRN Reason: Blood Sugar - High Cholecalciferol (Vitamin D3) [Vitamin D3] 2,000 unit PO DAILY Omeprazole 20 mg PO DAILY amLODIPine [Norvasc] 10 mg PO DAILY #90 tab Carvedilol [Coreg*] 12.5 mg PO BID-W/MEALS #60 tab hydrALAZINE HCL [Apresoline] 25 mg PO BID #60 tab Lisinopril [Zestril] 20 mg PO BID tab Spironolactone-Hctz 25-25Mg [Aldactazide 25-25 MG] 1 tab PO BID QUEtiapine [SEROquel] 100 mg PO HS Insulin Glargine,Hum.rec.anlog [Basaglar Kwikpen U-100] 60 unit SQ HS Hydrocodone/Acetaminophen [Charlotte 10-325] 1 tab PO QID Furosemide [Lasix] 40 mg PO DAILY Ferrous Sulfate [Feosol] 325 mg PO DAILY Cyclobenzaprine [Flexeril] 10 mg PO TID Aspirin EC [Ecotrin] 325 mg PO DAILY Simvastatin [Zocor] 20 mg PO HS Discharge Medication List Insulin Aspart [NovoLOG (formulary)] See Protocol SQ AC-TID PRN 06/21/17 [ History] Cholecalciferol (Vitamin D3) [Vitamin D3] 2,000 unit PO DAILY 07/23/17 [History] Omeprazole 20 mg PO DAILY 07/23/17 [History] Carvedilol [Coreg*] 12.5 mg PO BID-W/MEALS #60 tab 07/29/17 [Rx] Lisinopril [Zestril] 20 mg PO BID tab 07/29/17 [Rx] amLODIPine [Norvasc] 10 mg PO DAILY #90 tab 07/29/17 [Rx] hydrALAZINE HCL [Apresoline] 25 mg PO BID #60 tab 07/29/17 [Rx] Aspirin EC [Ecotrin] 325 mg PO DAILY 03/24/18 [History] Cyclobenzaprine [Flexeril] 10 mg PO TID 03/24/18 [History] Ferrous Sulfate [Feosol] 325 mg PO DAILY 03/24/18 [History] Furosemide [Lasix] 40 mg PO DAILY 03/24/18 [History] Hydrocodone/Acetaminophen [Charlotte 10-325] 1 tab PO QID 03/24/18 [History] Insulin Glargine,Hum.rec.anlog [Basaglar Kwikpen U-100] 60 unit SQ HS 03/24/18 [ History] QUEtiapine [SEROquel] 100 mg PO HS 03/24/18 [History] Spironolactone-Hctz 25-25Mg [Aldactazide 25-25 MG] 1 tab PO BID 03/24/18 [ History] Simvastatin [Zocor] 20 mg PO HS 05/13/18 [History] Follow up Appointment(s)/Referral(s): Jese Ruggiero MD [Primary Care Provider] - 05/26/18 8:10 am Rashad Braden MD [STAFF PHYSICIAN] - 06/19/18 9:30 am (Neurology.) [facility], [NON-STAFF] - Hernan Blankenship MD [STAFF PHYSICIAN] - 06/11/18 9:30 am (Carotid stenosis.) Patient Instructions/Handouts: Heart Healthy Diet (DC), Diabetic Hyperglycemia (DC), Stroke (DC) Discharge Disposition: Left Against Medical Advice
== END 2018-05-20 09:15 | disposition left against medical advice (07) | DRG 65 ==
LOC: EC 12:28 → 6SEL 15:26
PROVIDERS: ADMIT Family Medicine; ATTEND Family Medicine
DX: I63.8 Other cerebral infarction (principal); G81.91 Hemiplegia, unspecified affecting right dominant side; I67.4 Hypertensive encephalopathy; N17.9 Acute kidney failure, unspecified; F20.9 Schizophrenia, unspecified; M48.02 Spinal stenosis, cervical region; R47.01 Aphasia; I69.998 Other sequelae following unspecified cerebrovascular disease; I69.928 Other speech and language deficits following unspecified cerebrovascular disease; R47.1 Dysarthria and anarthria; E78.5 Hyperlipidemia, unspecified; F32.9 Major depressive disorder, single episode, unspecified; E78.00 Pure hypercholesterolemia, unspecified; E11.9 Type 2 diabetes mellitus without complications; I10 Essential (primary) hypertension; F41.9 Anxiety disorder, unspecified; G89.4 Chronic pain syndrome; I65.23 Occlusion and stenosis of bilateral carotid arteries; H26.9 Unspecified cataract; M19.90 Unspecified osteoarthritis, unspecified site; R01.1 Cardiac murmur, unspecified; R19.7 Diarrhea, unspecified; H53.8 Other visual disturbances; Z79.4 Long term (current) use of insulin; Z79.82 Long term (current) use of aspirin; Z79.899 Other long term (current) drug therapy; Z88.6 Allergy status to analgesic agent; Z88.5 Allergy status to narcotic agent; Z88.8 Allergy status to other drugs, medicaments and biological substances; Z91.81 History of falling; Z82.3 Family history of stroke; Z83.3 Family history of diabetes mellitus; Z81.1 Family history of alcohol abuse and dependence
CPT/HCPCS: 36415; 70450; 71046; 72125; 80048; 80053; 82550; 82553; 83036; 83735; 84484; 85025; 85610; 85730; 87324; 93005; 93306; 93880; 95816; 96360; 96361; 99285

== ENCOUNTER 2018-06-20 00:44 | Emergency (ER) | payer MEDICARE, OTHER ==
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
[2018-06-20 02:22] VITALS: BP 166/98; PULSE 76; RESP 18
[2018-06-20] MEDS ORDERED: ORPHENADRINE 30 MG/ML 2 ML VIAL IM STA (02:23)
[2018-06-20] MEDS ORDERED: HYDROcodone/APAP 10-325MG 1 EACH TAB PO ONE (02:23)
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
[2018-06-20 02:36] VITALS: TEMP 98
== END 2018-06-20 02:42 | disposition home or self-care (01) ==
LOC: EC 00:44
DX: M54.30 Sciatica, unspecified side (principal); E11.9 Type 2 diabetes mellitus without complications; I10 Essential (primary) hypertension; E78.5 Hyperlipidemia, unspecified; F41.9 Anxiety disorder, unspecified; F31.9 Bipolar disorder, unspecified; Z79.4 Long term (current) use of insulin; Z79.82 Long term (current) use of aspirin; Z79.899 Other long term (current) drug therapy; Z88.6 Allergy status to analgesic agent; Z88.8 Allergy status to other drugs, medicaments and biological substances; Z88.5 Allergy status to narcotic agent; Z86.73 Personal history of transient ischemic attack (TIA), and cerebral infarction without residual deficits
CPT/HCPCS: 72100; 99283; 96372; J2360

== ENCOUNTER 2018-07-11 00:52 | Emergency (ER) | payer MEDICARE, OTHER ==
[2018-07-11 00:58] VITALS: BP 190/83; PULSE 81; RESP 16; TEMP 98.5
[2018-07-11] MEDS ORDERED: HYDROcodone/APAP 5-325MG 1 EACH TAB PO STA (01:15)
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
== END 2018-07-11 01:31 | disposition home or self-care (01) ==
LOC: EC 00:52
DX: G89.29 Other chronic pain (principal); M54.5 Low back pain; E11.9 Type 2 diabetes mellitus without complications; E78.5 Hyperlipidemia, unspecified; I10 Essential (primary) hypertension; F31.9 Bipolar disorder, unspecified; F20.9 Schizophrenia, unspecified; Z79.4 Long term (current) use of insulin; Z79.82 Long term (current) use of aspirin; Z79.899 Other long term (current) drug therapy; Z88.5 Allergy status to narcotic agent; Z88.6 Allergy status to analgesic agent; Z88.8 Allergy status to other drugs, medicaments and biological substances; Z86.73 Personal history of transient ischemic attack (TIA), and cerebral infarction without residual deficits
CPT/HCPCS: 99283

== ENCOUNTER 2018-08-22 22:37 | Emergency (ER) | payer MEDICARE, OTHER ==
[2018-08-22 23:02] VITALS: TEMP 99.3
[2018-08-23] MEDS ORDERED: HYDROcodone/APAP 5-325MG 1 EACH TAB PO STA (00:40)
--- NOTE | 2018-08-23 01:11 | CT ---
EXAMINATION TYPE: CT brain wo con DATE OF EXAM: 08/23/2018 COMPARISON: 05/15/2018 HISTORY: AMS CT DLP: 1032.4 mGycm Automated exposure control for dose reduction was used. FINDINGS: There is hypodensity in the left posterior frontal lobe and left posterior temporal lobe related to o ld cortical infarct. There is no mass effect nor midline shift. There is no sign of intracranial hemo rrhage. The calvarium is intact. There is 1 cm area of hypodensity in the left internal capsule. 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 NO EVIDENCE OF A NEW INFARCT. NO C HANGE COMPARED TO LAST EXAM.
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
[2018-08-23 01:33] VITALS: BP 199/97; PULSE 77; RESP 16
[2018-08-23] MEDS ORDERED: cloNIDine HCL 0.1 MG TAB PO STA (01:35)
== END 2018-08-23 01:43 | disposition home or self-care (01) ==
LOC: EC 22:37
DX: G89.29 Other chronic pain (principal); M54.5 Low back pain; M54.2 Cervicalgia; M25.552 Pain in left hip; F31.9 Bipolar disorder, unspecified; F20.9 Schizophrenia, unspecified; E11.9 Type 2 diabetes mellitus without complications; E78.5 Hyperlipidemia, unspecified; I10 Essential (primary) hypertension; M19.90 Unspecified osteoarthritis, unspecified site; Z79.899 Other long term (current) drug therapy; Z79.4 Long term (current) use of insulin; Z79.82 Long term (current) use of aspirin; Z88.6 Allergy status to analgesic agent; Z88.5 Allergy status to narcotic agent; Z88.8 Allergy status to other drugs, medicaments and biological substances; Z86.73 Personal history of transient ischemic attack (TIA), and cerebral infarction without residual deficits; W19.XXXA Unspecified fall, initial encounter; Y92.009 Unspecified place in unspecified non-institutional (private) residence as the place of occurrence of the external cause
CPT/HCPCS: 70450; 73502; 99284

== ENCOUNTER 2018-09-04 15:04 | Emergency (ER) | payer MEDICARE, OTHER ==
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
[2018-09-04 15:56] LABS: Basophils # (A) 0.1 k/uL (0-0.2); Basophils % (A) 1 %; Eosinophils # (A) 0.2 k/uL (0-0.7); Eosinophils % (A) 2 %; HCT 39.7 % (39.0-53.0); HGB 12.2 gm/dL (13.0-17.5); Hypochromasia Slight; Lymphocytes # (A) 2.2 k/uL (1.0-4.8); Lymphocytes % (A) 26 %; MCH 25.5 pg (25.0-35.0); MCHC 30.8 g/dL (31.0-37.0); MCV 82.8 fL (80.0-100.0); Monocytes # (A) 0.4 k/uL (0-1.0); Monocytes % (A) 5 %; Neutrophils # (A) 5.6 k/uL (1.3-7.7); Neutrophils % (A) 64 %; Platelet Count 233 k/uL (150-450); RDW 14.2 % (11.5-15.5); WBC 8.7 k/uL (3.8-10.6)
[2018-09-04 16:03] LABS: Potassium 4.1 mmol/L (3.5-5.1)
[2018-09-04 16:04] LABS: ALT 22 U/L (21-72); AST 22 U/L (17-59); Albumin 4.6 g/dL (3.5-5.0); Alcohol <10 mg/dL; Alkaline Phosphatase 75 U/L (38-126); Anion Gap 10 mmol/L; Blood Urea Nitrogen 34 mg/dL (9-20); Carbon Dioxide 28 mmol/L (22-30); Chloride 104 mmol/L (98-107); Sodium 142 mmol/L (137-145); Total Bilirubin 0.2 mg/dL (0.2-1.3); Total Protein 8.1 g/dL (6.3-8.2)
[2018-09-04 16:05] LABS: Glucose 43 mg/dL (74-99)
[2018-09-04 16:06] LABS: INR 0.9 (<1.2); Partial Thromboplastin Time 24.6 sec (22.0-30.0)
[2018-09-04] MEDS ORDERED: DEXTROSE 50%-WATER 50 ML SYRINGE IVP STA (16:08)
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
[2018-09-04 16:54] LABS: Appearance,Urine Clear (Clear); Bilirubin,Urine Negative (Negative); Blood,Urine Negative (Negative); Color,Urine Light Yellow; Glucose,Urine (UA) Negative (Negative); Ketones,Urine Negative (Negative); Leukocyte Esterase,Urine Negative (Negative); Nitrite,Urine Negative (Negative); PH, Urine 5.5 (5.0-8.0); Protein,Urine Trace (Negative); Specific Gravity,Urine 1.006 (1.001-1.035); Urobilinogen,Urine <2.0 mg/dL (<2.0)
--- NOTE | 2018-09-04 16:57 | CT ---
EXAMINATION TYPE: CT brain wo con DATE OF EXAM: 09/04/2018 COMPARISON: 08/23/2018 HISTORY: Altered mental status. CT DLP: 1068.4 mGycm Automated exposure control for dose reduction was used. FINDINGS: There is hypodensity in the left posterior frontal and the left posterior temporal lobe related to ol d infarcts. There is no mass effect nor midline shift. There is no sign of intracranial hemorrhage. V entricles of normal size. Calvarium is intact. IMPRESSION: OLD LEFT FRONTAL AND POSTERIOR TEMPORAL LOBE CORTICAL INFARCTS. NO ACUTE ABNORMALITY. NO CHANGE COMPARED TO OLD EXAM.
[2018-09-04 17:00] LABS: Glucose,Whole Blood 173 mg/dL (75-99)
[2018-09-04 17:07] LABS: Amphetamine Screen,Urine Not Detected (NotDetected); Barbiturate Screen,Urine Not Detected (NotDetected); Benzodiazepines Screen,Urine Not Detected (NotDetected); Cocaine Screen,Urine Not Detected (NotDetected); Methadone Screen, Urine Not Detected (NotDetected); Opiate Screen,Urine Detected (NotDetected); Oxycodone Screen, Urine Not Detected (NotDetected); Phencyclidine Screen,Urine Not Detected (NotDetected); Tricyclic Antidepressant,Urine Not Detected (NotDetected); Urn Cannabinoid Scrn Not Detected (NotDetected)
[2018-09-04] MEDS ORDERED: ASPIRIN 325 MG TAB PO STA (18:03)
[2018-09-04] MEDS ORDERED: SODIUM CHLORIDE 0.9% 1,000 ML IV SCH (18:15)
[2018-09-04 18:47] VITALS: TEMP 98
[2018-09-04 20:42] VITALS: BP 159/80; PULSE 83; RESP 19
[2018-09-04] MEDS ORDERED: ATORVASTATIN 80 MG TAB PO SCH (21:00)
[2018-09-05] MEDS ORDERED: ASPIRIN 325 MG TAB PO SCH (09:00)
[2018-09-05] MEDS ORDERED: CLOPIDOGREL 75 MG TAB PO SCH (09:00)
== END 2018-09-04 19:40 | disposition other institution (70) ==
LOC: EC 15:04 → 3SCARD 18:11 → UNDOADMIN 18:11 → UNDODISIN 22:04
DX: I63.9 Cerebral infarction, unspecified (principal); R47.01 Aphasia; R41.0 Disorientation, unspecified; H53.8 Other visual disturbances; N18.9 Chronic kidney disease, unspecified; I12.9 Hypertensive chronic kidney disease with stage 1 through stage 4 chronic kidney disease, or unspecified chronic kidney disease; E78.5 Hyperlipidemia, unspecified; E11.9 Type 2 diabetes mellitus without complications; M19.90 Unspecified osteoarthritis, unspecified site; F20.9 Schizophrenia, unspecified; F31.9 Bipolar disorder, unspecified; F41.9 Anxiety disorder, unspecified; Z79.4 Long term (current) use of insulin; Z79.82 Long term (current) use of aspirin; Z79.891 Long term (current) use of opiate analgesic; Z79.899 Other long term (current) drug therapy; Z88.5 Allergy status to narcotic agent; Z88.6 Allergy status to analgesic agent; Z88.8 Allergy status to other drugs, medicaments and biological substances; Z82.0 Family history of epilepsy and other diseases of the nervous system
CPT/HCPCS: 36415; 93005; 80053; 85025; 85610; 85730; 81003; 80306; 71046; 70450; 99285; 96374; G0480; 80320

== ENCOUNTER 2018-11-28 22:51 | Emergency (ER) | payer MEDICARE, OTHER ==
[2018-11-28 23:05] VITALS: TEMP 98.3
[2018-11-29] MEDS ORDERED: MORPHINE SULFATE 4 MG/ML SYRINGE IM STA (00:30)
[2018-11-29] MEDS ORDERED: methylPREDNISolone SOD SUCCI 125 MG/2 ML VIAL IM ONE (00:31)
--- NOTE | 2018-11-29 01:01 | CT ---
EXAM: CT Lumbar Spine Without Intravenous Contrast CLINICAL HISTORY: ITS.REASON CT Reason: Pain TECHNIQUE: Axial computed tomography images of the lumbar spine without intravenous contrast. CTDI is 34.4 mGy and DLP is 1110 mGy-cm. This CT exam was performed using one or more of the following dose reduction techniques: automated exposure control, adjustment of the mA and/or kV according to patient size, and/or use of iterative reconstruction technique. COMPARISON: 06/20/18. FINDINGS: Vertebrae: No acute fracture. No subluxation. Lucent focus in the L3 vertebral body. Discs/spinal canal/neural foramina: Degenerative changes with varying degrees of central canal and neuroforaminal stenosis, most prominent at L3-4 and L4-5. Soft tissues: Unremarkable. IMPRESSION: 1. No evidence of acute fracture. 2. Degenerative changes with central canal stenosis most prominent at L3- 4 and L4-5.
[2018-11-29 01:19] VITALS: RESP 16
[2018-11-29] MEDS ORDERED: ENALAPRILAT 1.25 MG/ML 1 ML VIAL IVP STA (01:25)
[2018-11-29] MEDS ORDERED: cloNIDine HCL 0.2 MG TAB PO STA (01:37)
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
[2018-11-29 02:17] VITALS: BP 192/99; PULSE 76
== END 2018-11-29 02:26 | disposition home or self-care (01) ==
LOC: EC 22:51
DX: M54.41 Lumbago with sciatica, right side (principal); E11.9 Type 2 diabetes mellitus without complications; E78.5 Hyperlipidemia, unspecified; I10 Essential (primary) hypertension; F41.9 Anxiety disorder, unspecified; F31.9 Bipolar disorder, unspecified; F20.9 Schizophrenia, unspecified; Z79.4 Long term (current) use of insulin; Z79.82 Long term (current) use of aspirin; Z79.899 Other long term (current) drug therapy; Z88.5 Allergy status to narcotic agent; Z88.6 Allergy status to analgesic agent; Z88.8 Allergy status to other drugs, medicaments and biological substances; Z86.73 Personal history of transient ischemic attack (TIA), and cerebral infarction without residual deficits
CPT/HCPCS: 72131; 99283; 96372 ×2; J2270; J2930

== ENCOUNTER 2019-01-19 00:30 | Emergency (ER) | payer MEDICARE, OTHER ==
[2019-01-19 00:37] LABS: Glucose,Whole Blood 56 mg/dL (75-99)
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
[2019-01-19] MEDS ORDERED: DEXTROSE 50% SYRINGE 50 ML IVP STA (00:42)
[2019-01-19 00:51] VITALS: TEMP 98.4
[2019-01-19 00:54] LABS: Glucose,Whole Blood 133 mg/dL (75-99)
[2019-01-19 00:58] LABS: Basophils # (A) 0.1 k/uL (0-0.2); Basophils % (A) 1 %; Eosinophils # (A) 0.2 k/uL (0-0.7); Eosinophils % (A) 3 %; HCT 36.9 % (39.0-53.0); HGB 11.6 gm/dL (13.0-17.5); Hypochromasia Slight; Lymphocytes # (A) 2.1 k/uL (1.0-4.8); Lymphocytes % (A) 23 %; MCHC 31.5 g/dL (31.0-37.0); MCV 82.3 fL (80.0-100.0); Mean Platelet Volume 8.8; Monocytes # (A) 0.5 k/uL (0-1.0); Monocytes % (A) 6 %; Neutrophils # (A) 5.8 k/uL (1.3-7.7); Neutrophils % (A) 65 %; Platelet Count 215 k/uL (150-450); RBC 4.49 m/uL (4.30-5.90); RDW 15.4 % (11.5-15.5); WBC 8.9 k/uL (3.8-10.6)
[2019-01-19 01:05] LABS: Albumin 4.8 g/dL (3.5-5.0); Calcium 9.7 mg/dL (8.4-10.2); Total Bilirubin 0.7 mg/dL (0.2-1.3)
[2019-01-19 01:07] LABS: Potassium 4.8 mmol/L (3.5-5.1)
[2019-01-19 01:22] LABS: Glucose,Whole Blood 96 mg/dL (75-99)
[2019-01-19 01:36] VITALS: RESP 18
[2019-01-19 01:53] LABS: Glucose,Whole Blood 70 mg/dL (75-99)
[2019-01-19 02:16] VITALS: BP 166/89; PULSE 77
[2019-01-19 02:44] LABS: Glucose,Whole Blood 122 mg/dL (75-99)
== END 2019-01-19 03:10 | disposition home or self-care (01) ==
LOC: EC 00:30
DX: E11.649 Type 2 diabetes mellitus with hypoglycemia without coma (principal); I69.320 Aphasia following cerebral infarction; I10 Essential (primary) hypertension; E78.5 Hyperlipidemia, unspecified; M19.90 Unspecified osteoarthritis, unspecified site; I69.398 Other sequelae of cerebral infarction; H53.8 Other visual disturbances; F20.9 Schizophrenia, unspecified; F31.9 Bipolar disorder, unspecified; F41.9 Anxiety disorder, unspecified; Z88.4 Allergy status to anesthetic agent; Z88.5 Allergy status to narcotic agent; Z88.6 Allergy status to analgesic agent; Z88.8 Allergy status to other drugs, medicaments and biological substances; Z79.4 Long term (current) use of insulin; Z79.82 Long term (current) use of aspirin; Z79.891 Long term (current) use of opiate analgesic; Z79.899 Other long term (current) drug therapy; Z83.3 Family history of diabetes mellitus; Z82.3 Family history of stroke
CPT/HCPCS: 36415; 80053; 85025; 93005; 96361; 96374; 99285

== ENCOUNTER 2020-03-14 13:03 | Inpatient (IN) | payer MEDICARE, OTHER ==
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
[2020-03-14 14:32] LABS: Basophils % (A) 0 %; Eosinophils # (A) 0.3 k/uL (0-0.7); Eosinophils % (A) 2 %; HCT 35.6 % (39.0-53.0); Lymphocytes # (A) 1.2 k/uL (1.0-4.8); Lymphocytes % (A) 9 %; MCH 25.5 pg (25.0-35.0); MCV 82.2 fL (80.0-100.0); Monocytes # (A) 0.6 k/uL (0-1.0); Monocytes % (A) 5 %; Neutrophils # (A) 10.8 k/uL (1.3-7.7); Neutrophils % (A) 82 %; Platelet Count 245 k/uL (150-450); RBC 4.33 m/uL (4.30-5.90); RDW 15.2 % (11.5-15.5); WBC 13.2 k/uL (3.8-10.6)
[2020-03-14] MEDS ORDERED: cefTRIAXone IN SWFI 1,000 MG/10 ML SYRINGE IVP STA (14:38)
[2020-03-14] MEDS ORDERED: AZITHROMYCIN 500 MG in SODIUM CHLORIDE 0.9% 250 ML IVPB STA (14:38)
[2020-03-14 14:48] LABS: Calcium 8.7 mg/dL (8.4-10.2); Potassium 3.7 mmol/L (3.5-5.1)
--- NOTE | 2020-03-14 14:51 | XR ---
EXAMINATION TYPE: XR chest 1V portable DATE OF EXAM: 03/14/2020 COMPARISON: Chest x-ray 09/04/2018 HISTORY: Dyspnea, shortness of breath and cough TECHNIQUE: Single frontal view of the chest is obtained. FINDINGS: Bilateral airspace disease is present, groundglass opacity is present greater on the right than on the left. No evident pneumothorax or pleural effusion. Multiple metallic densities are prese nt over the lower chest. The heart size is normal. Aorta is dense. IMPRESSION: Correlate for pneumonia, pulmonary edema, pulmonary hemorrhage
[2020-03-14] MEDS ORDERED: RX INFO: IV CONTRAST WAS GIVEN 1 EACH MISC MISCELLANE PRN (15:08)
[2020-03-14 15:16] LABS: C Reactive Protein 250.8 mg/L (<10.0)
[2020-03-14] MEDS ORDERED: MORPHINE SULFATE 4 MG/ML SYRINGE IV PRN (16:30)
[2020-03-14] MEDS ORDERED: NALOXONE 0.4 MG/ML 1 ML VIAL IV PRN (16:30)
[2020-03-14] MEDS ORDERED: ACETAMINOPHEN TAB 325 MG TAB PO PRN (16:30)
[2020-03-14] MEDS ORDERED: ONDANSETRON 4 MG/2 ML VIAL IVP PRN (16:30)
--- NOTE | 2020-03-14 16:31 | CT ---
EXAMINATION TYPE: CT chest w con DATE OF EXAM: 03/14/2020 COMPARISON: None HISTORY: abnormal cxr CT DLP: 567.5 mGycm, Automated exposure control for dose reduction was used. CONTRAST: Performed injected with 80cc mL of Isovue 300. TECHNIQUE: Axial images were obtained at 5 mm thick sections. Reconstructed images are reviewed on [place] computer in the coronal plane. FINDINGS: The thyroid is out of the [id number]. There is diffuse lung infiltrate present within the midportion of the lung redman extending towards b ut not abutting the majority of the pleural margin on the right. Small amount of pneumonitis changes within the left upper lobe and very minimal groundglass opacities are at the left base. Findings are nonspecific. Infectious etiology should be considered. Consider atypical pneumonia such as coronaviru s within the differential. Pulmonary edema and respiratory failure could be considered. A neoplastic mass is within the differential. Small bilateral pleural effusions are present. No enlarged mediastinal or hilar adenopathy is evident. Shot[place] pretracheal lymph nodes are present. The ascending aorta diameter at the level of the main pulmonary artery is 3.4 cm. The main pulmonar y artery diameter at the bifurcation is 3.[address] sections are obtained through the upper abdomen. Abdomen is essentially unremarkable. IMPRESSIONS: 1. Diffuse increased lung markings greater on the right than the left. Differential diagnosis would i nclude infectious etiologies, neoplasm, pulmonary edema. 2. Small bilateral pleural effusions.
[2020-03-14] MEDS: SODIUM CHLORIDE 0.9% 1,000 ML IV SCH (17:59)
[2020-03-14 20:40] LABS: Glucose,Whole Blood 304 mg/dL (75-99)
[2020-03-14] MEDS ORDERED: CYCLOBENZAPRINE 10 MG TAB PO PRN (21:11)
[2020-03-14] MEDS: OXcarbazepine 300 MG TAB PO SCH (21:23)
[2020-03-14] MEDS: QUEtiapine 100 MG TAB PO SCH (21:24)
[2020-03-14] MEDS: lisinopriL 20 MG TAB PO SCH (21:24)
[2020-03-14] MEDS: INSULIN ASPART (NovoLOG) 100 UNIT/ML VIAL SQ SCH (21:24)
[2020-03-14] MEDS: busPIRone HCl 5 MG TAB PO SCH (21:24)
[2020-03-14] MEDS: HYDROcodone/APAP 10-325MG 1 EACH TAB PO PRN (21:29)
[2020-03-15 06:20] LABS: Glucose,Whole Blood 255 mg/dL (75-99)
[2020-03-15] MEDS: carvediloL 12.5 MG TAB PO SCH ×2 (06:24→17:24)
[2020-03-15] MEDS: INSULIN ASPART (NovoLOG) 100 UNIT/ML VIAL SQ SCH ×4 (06:24→20:34)
[2020-03-15] MEDS: PANTOPRAZOLE 40 MG TABLET PO SCH (06:24)
[2020-03-15] MEDS ORDERED: INSULIN ASPART (NovoLOG) 100 UNIT/ML VIAL SQ SCH (07:30)
[2020-03-15] MEDS: FUROSEMIDE 40 MG TAB PO SCH (08:36)
[2020-03-15] MEDS: OXcarbazepine 300 MG TAB PO SCH ×2 (08:36→20:34)
[2020-03-15] MEDS: ATORVASTATIN 20 MG TAB PO SCH (08:36)
[2020-03-15] MEDS: buPROPion SR 150 MG TABLET.ER PO SCH (08:36)
[2020-03-15] MEDS: amLODIPine 10 MG TAB PO SCH (08:36)
[2020-03-15] MEDS: CITALOPRAM HYDROBROMIDE 20 MG TAB PO SCH (08:36)
[2020-03-15] MEDS: busPIRone HCl 5 MG TAB PO SCH ×2 (08:36→20:34)
[2020-03-15] MEDS: lisinopriL 20 MG TAB PO SCH ×2 (08:37→20:33)
[2020-03-15] MEDS: HYDROcodone/APAP 10-325MG 1 EACH TAB PO PRN (09:29)
[2020-03-15 09:45] LABS: Calcium 8.4 mg/dL (8.4-10.2); Potassium 3.7 mmol/L (3.5-5.1); Total Bilirubin 0.4 mg/dL (0.2-1.3); Total Protein 5.9 g/dL (6.3-8.2)
[2020-03-15 09:52] LABS: Basophils % (A) 0 %; Eosinophils # (A) 0.2 k/uL (0-0.7); Eosinophils % (A) 2 %; HCT 32.7 % (39.0-53.0); HGB 10.1 gm/dL (13.0-17.5); Hypochromasia Slight; Lymphocytes # (A) 1.6 k/uL (1.0-4.8); Lymphocytes % (A) 15 %; MCH 25.7 pg (25.0-35.0); MCHC 30.8 g/dL (31.0-37.0); MCV 83.5 fL (80.0-100.0); Mean Platelet Volume 9.2; Monocytes # (A) 0.6 k/uL (0-1.0); Monocytes % (A) 5 %; Neutrophils % (A) 76 %; Platelet Count 264 k/uL (150-450); RBC 3.91 m/uL (4.30-5.90); RDW 15.2 % (11.5-15.5); WBC 10.6 k/uL (3.8-10.6)
[2020-03-15 11:40] LABS: Glucose,Whole Blood 201 mg/dL (75-99)
[2020-03-15] MEDS: DEXAMETHASONE SOD PHOSPHATE 4 MG/ML 1 ML VIAL IV SCH ×2 (12:38→17:24)
[2020-03-15] MEDS: LEVOFLOXACIN 500 MG TAB PO SCH (12:38)
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
[2020-03-15 16:32] LABS: Glucose,Whole Blood 317 mg/dL (75-99)
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
[2020-03-15 19:18] LABS: Hemoglobin A1C 9.4 % (4.0-6.0)
[2020-03-15 19:23] LABS: Ferritin 335.3 ng/mL (22.0-322.0)
[2020-03-15 20:15] LABS: Glucose,Whole Blood 309 mg/dL (75-99)
[2020-03-15] MEDS: SODIUM CHLORIDE 0.9% 1,000 ML IV SCH (20:31)
[2020-03-15] MEDS: QUEtiapine 100 MG TAB PO SCH (20:34)
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
[2020-03-16 06:30] LABS: Glucose,Whole Blood 305 mg/dL (75-99)
[2020-03-16] MEDS: carvediloL 12.5 MG TAB PO SCH ×2 (06:34→17:12)
[2020-03-16] MEDS: PANTOPRAZOLE 40 MG TABLET PO SCH (06:34)
[2020-03-16] MEDS: INSULIN ASPART (NovoLOG) 100 UNIT/ML VIAL SQ SCH ×4 (06:34→21:00)
[2020-03-16] MEDS: INSULIN DETEMIR (LEVEMIR) 100 UNIT/ML SYR SQ SCH (06:34)
[2020-03-16] MEDS: HYDROcodone/APAP 10-325MG 1 EACH TAB PO PRN ×2 (06:38→21:06)
[2020-03-16 07:45] LABS: Albumin 3.2 g/dL (3.5-5.0); Calcium 8.9 mg/dL (8.4-10.2); Potassium 3.7 mmol/L (3.5-5.1); Total Bilirubin 0.2 mg/dL (0.2-1.3); Total Protein 6.1 g/dL (6.3-8.2)
[2020-03-16 07:50] LABS: Basophils % (A) 0 %; Eosinophils # (A) 0.1 k/uL (0-0.7); Eosinophils % (A) 1 %; HGB 10.2 gm/dL (13.0-17.5); Hypochromasia Moderate; Lymphocytes # (A) 0.9 k/uL (1.0-4.8); Lymphocytes % (A) 10 %; MCHC 30.8 g/dL (31.0-37.0); MCV 84.6 fL (80.0-100.0); Mean Platelet Volume 7.7; Monocytes # (A) 0.3 k/uL (0-1.0); Monocytes % (A) 3 %; Neutrophils # (A) 7.7 k/uL (1.3-7.7); Neutrophils % (A) 84 %; Platelet Count 266 k/uL (150-450); RBC 3.91 m/uL (4.30-5.90); WBC 9.1 k/uL (3.8-10.6)
[2020-03-16 08:04] LABS: C Reactive Protein 148.4 mg/L (<10.0)
[2020-03-16 08:42] LABS: D-Dimer 1.97 mg/L FEU (<0.60)
[2020-03-16] MEDS: busPIRone HCl 5 MG TAB PO SCH ×2 (09:11→20:59)
[2020-03-16] MEDS: CITALOPRAM HYDROBROMIDE 20 MG TAB PO SCH (09:11)
[2020-03-16] MEDS: FUROSEMIDE 40 MG TAB PO SCH (09:12)
[2020-03-16] MEDS: lisinopriL 20 MG TAB PO SCH ×2 (09:12→21:00)
[2020-03-16] MEDS: amLODIPine 10 MG TAB PO SCH (09:12)
[2020-03-16] MEDS: ATORVASTATIN 20 MG TAB PO SCH (09:12)
[2020-03-16] MEDS: OXcarbazepine 300 MG TAB PO SCH ×2 (09:13→21:00)
[2020-03-16] MEDS: buPROPion SR 150 MG TABLET.ER PO SCH (09:13)
[2020-03-16] MEDS: LEVOFLOXACIN 500 MG TAB PO SCH (09:14)
[2020-03-16] MEDS: DEXAMETHASONE SOD PHOSPHATE 4 MG/ML 1 ML VIAL IV SCH ×2 (09:15→21:00)
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
[2020-03-16 11:55] LABS: Glucose,Whole Blood 227 mg/dL (75-99)
--- NOTE | 2020-03-16 14:16 | FL ---
EXAMINATION TYPE: FL barium swallow w video DATE OF EXAM: 03/16/2020 MODIFIED SWALLOW / DEGLUTITION STUDY CLINICAL HISTORY: Dysphagia. Possible covid-19 pneumonia. TECHNIQUE: Deglutition study is performed utilizing thin liquid barium, honey and nectar thick liqui d barium, barium thick applesauce, and barium coated cracker. Total of 1.04 minutes of fluoroscopic t lois utilized during procedure. 0 spot images are saved to PACS. COMPARISON: None. FINDINGS: The oral and pharyngeal phases show satisfactory initiation and propagation with all modali ties tested. Satisfactory mastication is seen with solid modalities tested. There is no evidence of penetration or aspiration with any modality tested. No significant pharyngeal residue was appreciate d. IMPRESSION: No penetration or aspiration observed. Please refer to speech therapist notes for further details if necessary.
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
[2020-03-16 16:41] LABS: Glucose,Whole Blood 381 mg/dL (75-99)
[2020-03-16 20:51] LABS: Glucose,Whole Blood 301 mg/dL (75-99)
[2020-03-16] MEDS: SODIUM CHLORIDE 0.9% 1,000 ML IV SCH (20:56)
[2020-03-16] MEDS: QUEtiapine 100 MG TAB PO SCH (21:00)
--- NOTE | 2020-03-16 23:25 | PN ---
PROGRESS NOTE DATE OF SERVICE: 03/16/2020 REASON FOR FOLLOWUP: Pneumonia. INTERVAL HISTORY: The patient is currently afebrile. He is breathing slightly comfortably. The patient did have a dry hacking cough, moderate intensity, not bringing up any sputum. No nausea or vomiting. No abdominal pain or diarrhea. PHYSICAL EXAMINATION: Blood pressure 170/77 with a pulse of 76, temperature 98.7. He is 95% on 4 L nasal cannula. General description is elderly male lying in bed in no distress. RESPIRATORY SYSTEM: Unlabored breathing. EXTREMITIES: No edema of feet. LABS: Hemoglobin is 10.2, white count 9.1. Blood culture has been negative. Sputum not collected. Legionella antigen was requested, not done. DIAGNOSTIC IMPRESSION AND PLAN: Patient admitted to the hospital with fever, shortness of breath and cough with concern for pneumonia, question of possible viral versus bacterial. Patient is currently covered with Rocephin and Levaquin to continue. Will try to obtain a sputum and urine for Legionella antigen and monitor clinical course closely. Continue with supportive care. MMODL / IJN: [id number] /
[2020-03-17 06:27] LABS: Glucose,Whole Blood 338 mg/dL (75-99)
[2020-03-17] MEDS: INSULIN ASPART (NovoLOG) 100 UNIT/ML VIAL SQ SCH ×4 (06:37→21:57)
[2020-03-17] MEDS: carvediloL 12.5 MG TAB PO SCH ×2 (06:37→17:44)
[2020-03-17] MEDS: INSULIN DETEMIR (LEVEMIR) 100 UNIT/ML SYR SQ SCH (06:37)
[2020-03-17] MEDS: PANTOPRAZOLE 40 MG TABLET PO SCH (06:37)
[2020-03-17] MEDS: HYDROcodone/APAP 10-325MG 1 EACH TAB PO PRN ×2 (08:27→16:17)
[2020-03-17] MEDS: amLODIPine 10 MG TAB PO SCH (08:30)
[2020-03-17] MEDS: CITALOPRAM HYDROBROMIDE 20 MG TAB PO SCH (08:30)
[2020-03-17] MEDS: ATORVASTATIN 20 MG TAB PO SCH (08:30)
[2020-03-17] MEDS: LEVOFLOXACIN 500 MG TAB PO SCH (08:30)
[2020-03-17] MEDS: busPIRone HCl 5 MG TAB PO SCH ×2 (08:30→21:52)
[2020-03-17] MEDS: lisinopriL 20 MG TAB PO SCH ×2 (08:30→21:52)
[2020-03-17] MEDS: FUROSEMIDE 40 MG TAB PO SCH (08:30)
[2020-03-17] MEDS: buPROPion SR 150 MG TABLET.ER PO SCH (08:31)
[2020-03-17] MEDS: OXcarbazepine 300 MG TAB PO SCH ×2 (08:31→21:53)
[2020-03-17] MEDS: DEXAMETHASONE SOD PHOSPHATE 4 MG/ML 1 ML VIAL IV SCH (08:32)
[2020-03-17 10:04] LABS: Basophils % (A) 0 %; Eosinophils # (A) 0.2 k/uL (0-0.7); Eosinophils % (A) 1 %; Hypochromasia Moderate; Lymphocytes # (A) 1.5 k/uL (1.0-4.8); Lymphocytes % (A) 13 %; MCH 25.4 pg (25.0-35.0); MCHC 29.5 g/dL (31.0-37.0); MCV 85.9 fL (80.0-100.0); Mean Platelet Volume 9.1; Monocytes # (A) 0.6 k/uL (0-1.0); Monocytes % (A) 5 %; Neutrophils # (A) 9.5 k/uL (1.3-7.7); Neutrophils % (A) 80 %; Platelet Count 320 k/uL (150-450); RBC 3.96 m/uL (4.30-5.90); RDW 15.8 % (11.5-15.5)
[2020-03-17 10:12] LABS: Potassium 4.4 mmol/L (3.5-5.1)
[2020-03-17 10:14] LABS: Albumin 3.2 g/dL (3.5-5.0); C Reactive Protein 60.8 mg/L (<10.0); Calcium 9.1 mg/dL (8.4-10.2); Total Bilirubin 0.3 mg/dL (0.2-1.3); Total Protein 6.1 g/dL (6.3-8.2)
--- NOTE | 2020-03-17 10:14 | XR ---
EXAMINATION TYPE: XR chest 1V portable DATE OF EXAM: 03/17/2020 COMPARISON: Prior chest x-ray dated 03/14/2020 HISTORY: Dyspnea TECHNIQUE: Single frontal view of the chest is obtained. FINDINGS: Airspace disease in the left lung is improved, right lung airspace disease appears somewha t less confluent. No evident pneumothorax or pleural effusion. No significant interval change. IMPRESSION: Some improvement in aeration.
[2020-03-17 10:52] LABS: D-Dimer 1.83 mg/L FEU (<0.60)
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
[2020-03-17 11:48] LABS: Glucose,Whole Blood 301 mg/dL (75-99)
[2020-03-17 12:13] VITALS: BMI 36.8
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
[2020-03-17 17:01] LABS: Glucose,Whole Blood 267 mg/dL (75-99)
[2020-03-17 20:54] LABS: Glucose,Whole Blood 330 mg/dL (75-99)
[2020-03-17] MEDS ORDERED: INSULIN DETEMIR (LEVEMIR) 100 UNIT/ML SYR SQ SCH (21:00)
[2020-03-17] MEDS: QUEtiapine 100 MG TAB PO SCH (21:53)
--- NOTE | 2020-03-17 23:08 | PN ---
PROGRESS NOTE DATE OF SERVICE: 03/17/2020 REASON FOR FOLLOWUP: Pneumonia. INTERVAL HISTORY: The patient is currently afebrile. The patient is breathing more comfortably. The patient denies having any chest pain. The cough has decreased in intensity. No nausea, no vomiting. No abdominal pain or diarrhea. PHYSICAL EXAMINATION: Blood pressure 159/72 with a pulse of 64, temperature 98. He is 95% on 6 L nasal cannula. General description is an elderly male up in the room in no distress. RESPIRATORY SYSTEM: Unlabored breathing with decreased intensity of breath sounds. No wheeze. HEART: S1, S2. Regular rate and rhythm. ABDOMEN: Soft. No tenderness. LABS: Hemoglobin is 10, white count 12. BUN of 39, creatinine 1.60. Sputum culture is currently pending. Blood culture has been negative. DIAGNOSTIC IMPRESSION AND PLAN: Patient admitted to hospital with pneumonia, possibly community-acquired in this patient who is clinically responding to the Rocephin and the Levaquin, which should be continued. Sputum culture will be followed and will monitor his clinical course closely. MMODL / IJN: [id number] /
[2020-03-18] MEDS: SODIUM CHLORIDE 0.9% 1,000 ML IV SCH ×2 (02:12→17:44)
[2020-03-18 06:34] LABS: Glucose,Whole Blood 234 mg/dL (75-99)
[2020-03-18] MEDS: carvediloL 12.5 MG TAB PO SCH ×2 (06:54→17:39)
[2020-03-18] MEDS: PANTOPRAZOLE 40 MG TABLET PO SCH (06:54)
[2020-03-18] MEDS: INSULIN DETEMIR (LEVEMIR) 100 UNIT/ML SYR SQ SCH (06:55)
[2020-03-18] MEDS: INSULIN ASPART (NovoLOG) 100 UNIT/ML VIAL SQ SCH ×4 (06:56→21:34)
[2020-03-18 07:33] LABS: Basophils % (A) 0 %; Eosinophils # (A) 0.2 k/uL (0-0.7); Eosinophils % (A) 1 %; HCT 34.6 % (39.0-53.0); HGB 10.6 gm/dL (13.0-17.5); Hypochromasia Marked; Lymphocytes # (A) 2.7 k/uL (1.0-4.8); Lymphocytes % (A) 21 %; MCH 26.3 pg (25.0-35.0); MCHC 30.7 g/dL (31.0-37.0); MCV 85.7 fL (80.0-100.0); Monocytes # (A) 0.7 k/uL (0-1.0); Monocytes % (A) 6 %; Neutrophils # (A) 9.2 k/uL (1.3-7.7); Neutrophils % (A) 71 %; Platelet Count 369 k/uL (150-450); RBC 4.04 m/uL (4.30-5.90); RDW 15.5 % (11.5-15.5)
[2020-03-18 08:23] LABS: D-Dimer 2.03 mg/L FEU (<0.60)
[2020-03-18] MEDS: busPIRone HCl 5 MG TAB PO SCH ×2 (09:04→21:34)
[2020-03-18] MEDS: LEVOFLOXACIN 500 MG TAB PO SCH (09:04)
[2020-03-18] MEDS: ATORVASTATIN 20 MG TAB PO SCH (09:04)
[2020-03-18] MEDS: amLODIPine 10 MG TAB PO SCH (09:04)
[2020-03-18] MEDS: dexAMETHasone 4 MG TAB PO SCH (09:06)
[2020-03-18] MEDS: OXcarbazepine 300 MG TAB PO SCH ×2 (09:06→21:34)
[2020-03-18] MEDS: buPROPion SR 150 MG TABLET.ER PO SCH (09:06)
[2020-03-18] MEDS: HYDROcodone/APAP 10-325MG 1 EACH TAB PO PRN ×2 (09:13→23:27)
[2020-03-18] MEDS: lisinopriL 20 MG TAB PO SCH ×2 (11:04→21:34)
[2020-03-18] MEDS: CITALOPRAM HYDROBROMIDE 20 MG TAB PO SCH (11:04)
[2020-03-18] MEDS: FUROSEMIDE 40 MG TAB PO SCH (11:05)
[2020-03-18 11:21] LABS: Glucose,Whole Blood 343 mg/dL (75-99)
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
[2020-03-18 16:29] LABS: Glucose,Whole Blood 266 mg/dL (75-99)
[2020-03-18 20:20] LABS: Glucose,Whole Blood 307 mg/dL (75-99)
[2020-03-18] MEDS ORDERED: ENOXAPARIN 60 MG/0.6 ML SYRINGE SQ SCH (21:30)
[2020-03-18] MEDS: QUEtiapine 100 MG TAB PO SCH (21:34)
[2020-03-18] MEDS: FAMOTIDINE 20 MG TAB PO SCH (22:10)
--- NOTE | 2020-03-18 22:10 | PN ---
PROGRESS NOTE DATE OF SERVICE: 03/18/2020 I am covering for Dr. Gomes. HISTORY OF PRESENT ILLNESS: This 62-year-old gentleman, admitted with pneumonia, bilateral, right more than the left and features of COVID-19 even though testing is negative. The patient is being closely monitored at this time. The patient is on broad-spectrum IV antibiotics and Pulmonary as well as Infectious Disease following the patient closely. PAST MEDICAL HISTORY: Reviewed. REVIEW OF SYSTEMS: CARDIOVASCULAR SYSTEM: No angina. RESPIRATORY SYSTEM: As mentioned earlier. GI: As mentioned earlier. : No dysuria. NERVOUS SYSTEM: No numbness or weakness. CURRENT MEDICATIONS: 1. Tylenol p.r.n. 2. [place]. 3. Norvasc. 4. Lipitor. 5. Wellbutrin. 6. BuSpar. 7. Coreg. 8. Rocephin. 9. Celexa. 10.Flexeril. 11.( ). 12.Lasix. 13.Levemir. 14.Levaquin. 15.Zestril. 16.Narcan. 17.Zofran. 18.Protonix. 19.Seroquel. PHYSICAL EXAM: Patient is alert, oriented x3. Pulse is 57, blood pressure 140/87, respiration 16, temperature 98.2, pulse ox 98% on room air. HEENT: Conjunctivae normal. Oral mucosa moist. NECK: No jugular venous distention. No lymph node enlargement. CARDIOVASCULAR: S1, S2. RESPIRATORY: Diminished breath sounds at the bases. A few scattered rhonchi and crackles. ABDOMEN: Soft, nontender. LEGS: No edema, no swelling. NERVOUS SYSTEM: No focal deficits. LABS: WBC 13, hemoglobin 10.6, and D-dimer is 2.03. Other labs are noted. ASSESSMENT: 1. Acute bilateral pneumonia, right more than left, possibly interstitial viral pneumonia, possibly COVID-19 even the test is negative, could be false-negative testing. 2. Increased WBC. 3. Anemia, normocytic. 4. Elevated D-dimer. 5. Elevated creatinine kinase. 6. Troponin 0.044, indeterminate. 7. Elevated CRP. 8. History of cerebrovascular accident/transient ischemic attack. 9. Diabetes mellitus type 2. 10.Hypertension. 11.Hyperlipidemia. 12.History of degenerative joint disease. 13.History of anxiety, bipolar depression, schizophrenia. 14.NO CODE, NO CPR, NO VENT. RECOMMENDATIONS AND DISCUSSION: In this 69-year-old gentleman who presented with multiple complex medical issues, at this time I recommend to continue current management, symptomatic treatment. Continue with antibiotics. Continue the bronchodilators. I would add Lovenox to current regimen and Pepcid as well. Otherwise, continue to monitor. Prognosis guarded. Further recommendations to follow. RA / LINDSEYN: [id number] /
--- NOTE | 2020-03-18 23:10 | PN ---
PROGRESS NOTE DATE OF SERVICE: 03/18/2020 REASON FOR FOLLOWUP: Pneumonia. INTERVAL HISTORY: Patient is currently afebrile. Patient is breathing comfortably. Patient denies having any chest pain. Cough has decreased intensity. No nausea, no vomiting. No abdominal pain no diarrhea. PHYSICAL EXAMINATION: Blood pressure 142/70 with a pulse of 57, temperature 98.3. He is 98% on room air. General description is an elderly male up n the bed in no distress. Respiratory system: Unlabored breathing, decreased breath sounds. No wheeze. Heart S1, S2. Regular rate and rhythm. Abdomen soft. No tenderness. LABS: Hemoglobin is 10.8, white count 13,000. Sputum cultures currently pending. DIAGNOSTIC IMPRESSION AND PLAN: Patient presented to the hospital with fever, diagnosed with pneumonia, possible community-acquired as the patient clinically responded to the Rocephin and Levaquin and chest x-ray showed improvement as well. Will keep the patient on current antibiotics, finish therapy with oral. Continue supportive care. MMODL / IJN: [id number] /
[2020-03-19 06:17] LABS: Glucose,Whole Blood 325 mg/dL (75-99)
[2020-03-19] MEDS: INSULIN DETEMIR (LEVEMIR) 100 UNIT/ML SYR SQ SCH ×2 (06:27→20:42)
[2020-03-19] MEDS: INSULIN ASPART (NovoLOG) 100 UNIT/ML VIAL SQ SCH ×4 (06:29→20:44)
[2020-03-19] MEDS: carvediloL 12.5 MG TAB PO SCH ×2 (06:30→17:08)
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
[2020-03-19] MEDS: HYDROcodone/APAP 10-325MG 1 EACH TAB PO PRN ×2 (09:58→20:44)
[2020-03-19] MEDS: ATORVASTATIN 20 MG TAB PO SCH (09:59)
[2020-03-19] MEDS: buPROPion SR 150 MG TABLET.ER PO SCH (09:59)
[2020-03-19] MEDS: amLODIPine 10 MG TAB PO SCH (10:00)
[2020-03-19] MEDS: busPIRone HCl 5 MG TAB PO SCH ×2 (10:00→20:44)
[2020-03-19] MEDS: CITALOPRAM HYDROBROMIDE 20 MG TAB PO SCH (10:00)
[2020-03-19] MEDS: ENOXAPARIN 40 MG/0.4 ML SYRINGE SQ SCH ×2 (10:00→20:41)
[2020-03-19] MEDS: dexAMETHasone 4 MG TAB PO SCH (10:00)
[2020-03-19] MEDS: lisinopriL 20 MG TAB PO SCH ×2 (10:00→20:44)
[2020-03-19] MEDS: FAMOTIDINE 20 MG TAB PO SCH ×2 (10:00→20:44)
[2020-03-19] MEDS: PANTOPRAZOLE 40 MG TABLET PO SCH (10:00)
[2020-03-19] MEDS: LEVOFLOXACIN 500 MG TAB PO SCH (10:01)
[2020-03-19] MEDS: OXcarbazepine 300 MG TAB PO SCH ×2 (10:01→20:43)
[2020-03-19] MEDS: FUROSEMIDE 40 MG TAB PO SCH (10:01)
[2020-03-19 12:06] LABS: Glucose,Whole Blood 304 mg/dL (75-99)
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
--- NOTE | 2020-03-19 17:00 | PN ---
PROGRESS NOTE DATE OF SERVICE: 03/19/2020 I am covering for Dr. Gomes. This 69-year-old gentleman, admitted with pneumonia, bilateral, right more the left was suspected to have Covid-19 lesions. Multiple consultants are following the patient closely. Patient on bronchodilators, empiric antibiotics also. The most recent chest x- ray which was reviewed today personally by me showed still the persistent of shadow suspicion on the right side. No chest pain. No palpitations. PAST MEDICAL HISTORY: Reviewed. REVIEW OF SYSTEMS: CARDIOVASCULAR SYSTEM: No angina or palpitations. RESPIRATION as mentioned earlier. GI: As mentioned earlier. : No dysuria or retention. NERVOUS SYSTEM: No numbness or weakness. CURRENT MEDICATIONS: Reviewed and include: 1. Tylenol p.r.n. 2. [place] 10 mg t.i.d. p.r.n. 3. Norvasc 10 mg daily. 4. Lipitor 20 mg daily. 5. Wellbutrin SR 150 mg p.o. daily. 6. BuSpar 5 mg p.o. b.i.d. 7. Coreg 12.5 mg b.i.d. 8. Rocephin 1 g daily. 9. Celexa 20 mg daily. 10.Flexeril 10 mg t.i.d. p.r.n. 11.Hexadrol 4 mg p.o. 12.Lovenox 40 mg subcu b.i.d. 13.Pepcid 20 mg b.i.d. 14.Lasix 40 mg daily. 15.Levemir 20 units subcu b.i.d. 16.Levaquin 500 mg. 17.Zestril 20 mg b.i.d. 18.Narcan, Zofran, Trileptal 300 mg b.i.d. 19.Seroquel 100 mg q.h.s. PHYSICAL EXAM: Patient is alert, oriented x3. Pulse is 56. Blood pressure 162/70, respiration 18, temperature 98.6, pulse ox 94% on room air. HEENT: Conjunctivae normal. NECK: No JVD. CARDIOVASCULAR: S1, S2 muffled. RESPIRATORY: Breath sounds diminished in the bases. Bilateral scattered rhonchi and crackles. ABDOMEN: Soft, nontender. LEGS are no edema, no swelling. NERVOUS SYSTEM: No focal deficits. LABS: Accu-Cheks 325, 304, otherwise other labs are noted. ASSESSMENT: 1. Acute bilateral pneumonia, right more the left, possibly interstitial pneumonia, possible Covid-19. The test is negative. Could be false-negative testing. 2. Increased WBC. 3. Diabetes mellitus type 2, uncontrolled with hyperglycemia. 4. Anemia, normocytic. 5. Elevated D-dimer with no evidence of pulmonary embolus. 6. Elevated creatinine kinase. 7. Troponin 0.042 indeterminate. 8. Elevated CRP. 9. History of cerebrovascular accident/transient ischemic attack. 10.Diabetes mellitus type 2. 11.Hypertension. 12.Hyperlipidemia. 13.History of degenerative joint disease. 14.History of anxiety/bipolar depression, schizophrenia. 15.NO CODE, NO CPR, NO VENT. RECOMMENDATIONS AND DISCUSSION: This 69-year-old gentleman who presented with multiple complex medical issues, we will monitor the patient closely. Continue the bronchodilators. Continue with empiric antibiotics. Continue with Lovenox. Continue the rest of medications. Repeat labs. Increase the dose of the Levemir to 20 units subcu daily and continue to monitor and Dr. Gomes will follow tomorrow. MMODL / IJN: [id number] /
[2020-03-19 17:09] LABS: Glucose,Whole Blood 315 mg/dL (75-99)
[2020-03-19] MEDS: SODIUM CHLORIDE 0.9% 1,000 ML IV SCH (17:19)
--- NOTE | 2020-03-19 20:06 | PN ---
PROGRESS NOTE DATE OF SERVICE: 03/19/2020 REASON FOR FOLLOWUP: Pneumonia, possible community-acquired. INTERVAL HISTORY: Patient is currently afebrile. The patient has been breathing comfortably. Denies having any chest pain or shortness of breath. Occasional cough. No sputum. No nausea, vomiting. No abdominal pain. No diarrhea. PHYSICAL EXAMINATION: Blood pressure 162/70 with a pulse of 56. Temperature 98.6, 94% on room air. General description: The patient is an elderly male lying in bed in no distress. Respiratory system: Unlabored breathing. Extremities: No edema of the feet. LABS: No new labs have been obtained today. Sputum has been usual respiratory maryam. DIAGNOSTIC IMPRESSION AND PLAN: Patient admitted to hospital with pneumonia likely community-acquired. So far sputum has been negative for resistant pathogen. Patient is on Rocephin and Levaquin to finish therapy with oral Levaquin and monitor clinical course closely. MMODL / IJN: [id number] /
[2020-03-19 20:27] LABS: Glucose,Whole Blood 273 mg/dL (75-99)
[2020-03-19] MEDS: QUEtiapine 100 MG TAB PO SCH (20:44)
[2020-03-20 06:15] LABS: Glucose,Whole Blood 235 mg/dL (75-99)
[2020-03-20] MEDS: carvediloL 12.5 MG TAB PO SCH ×2 (06:34→15:53)
[2020-03-20] MEDS: PANTOPRAZOLE 40 MG TABLET PO SCH (06:34)
[2020-03-20] MEDS: INSULIN ASPART (NovoLOG) 100 UNIT/ML VIAL SQ SCH ×4 (06:34→21:07)
[2020-03-20] MEDS: ENOXAPARIN 40 MG/0.4 ML SYRINGE SQ SCH ×2 (09:55→21:07)
[2020-03-20] MEDS: INSULIN DETEMIR (LEVEMIR) 100 UNIT/ML SYR SQ SCH ×2 (09:56→21:07)
[2020-03-20] MEDS: FAMOTIDINE 20 MG TAB PO SCH (09:56)
[2020-03-20] MEDS: dexAMETHasone 4 MG TAB PO SCH (09:56)
[2020-03-20] MEDS: buPROPion SR 150 MG TABLET.ER PO SCH (09:56)
[2020-03-20 09:57] LABS: Glucose,Whole Blood 273 mg/dL (75-99)
[2020-03-20] MEDS: FUROSEMIDE 40 MG TAB PO SCH (09:57)
[2020-03-20] MEDS: amLODIPine 10 MG TAB PO SCH (09:57)
[2020-03-20] MEDS: CITALOPRAM HYDROBROMIDE 20 MG TAB PO SCH (09:57)
[2020-03-20] MEDS: busPIRone HCl 5 MG TAB PO SCH ×2 (09:57→21:06)
[2020-03-20] MEDS: lisinopriL 20 MG TAB PO SCH ×2 (09:57→21:06)
[2020-03-20] MEDS: OXcarbazepine 300 MG TAB PO SCH ×2 (09:57→21:06)
[2020-03-20] MEDS: ATORVASTATIN 20 MG TAB PO SCH (09:57)
[2020-03-20] MEDS: HYDROcodone/APAP 10-325MG 1 EACH TAB PO PRN ×2 (10:01→21:06)
[2020-03-20 11:47] LABS: Glucose,Whole Blood 256 mg/dL (75-99)
[2020-03-20] MEDS: LEVOFLOXACIN 500 MG TAB PO SCH (12:04)
[2020-03-20] MEDS: hydrALAZINE HCL 25 MG TAB PO SCH ×4 (12:04→21:06)
--- NOTE | 2020-03-20 12:25 | XR ---
EXAMINATION TYPE: XR chest 1V DATE OF EXAM: 03/20/2020 COMPARISON: 03/19/2020 HISTORY: Cough TECHNIQUE: Single frontal view of the chest is obtained. FINDINGS: Persistent diffuse right-sided infiltrate stable. Left lung clear. Metallic densities over lying the left lung base again seen. Heart size normal. No evidence of pneumothorax. No pleural effus ion. Biapical pleural thickening. Hypertrophic and degenerative change of the spine. IMPRESSION: Diffuse right-sided infiltrate.
--- NOTE | 2020-03-20 12:29 | P.DS ---
Providers Date of admission: 03/14/20 16:32 Expected date of discharge: 03/20/20 Attending physician: Cleveland Gomes MD Consults: 03/14/20 16:21 Consult Physician Routine Consulting Provider: Flavio Gipson Consult Reason/Comments: hypoxic respiratory failure, likely covid 19 Do you want consulting provider notified?: Yes 03/14/20 16:30 Consult Physician Routine Consulting Provider: Osmar Hemphill Consult Reason/Comments: covid pneumonia Do you want consulting provider notified?: Yes Primary care physician: Elina Moore Patient Condition at Discharge: Fair Plan - Discharge Summary Discharge Rx Participant: No New Discharge Prescriptions: New Levofloxacin [Levaquin] 500 mg PO Q24H #3 tab Insulin Detemir (Levemir) [Levemir] 20 unit SQ BID #1 syr Continue Omeprazole 20 mg PO DAILY amLODIPine [Norvasc] 10 mg PO DAILY #90 tab Carvedilol [Coreg*] 12.5 mg PO BID-W/MEALS #60 tab hydrALAZINE HCL [Apresoline] 25 mg PO BID #60 tab Lisinopril [Zestril] 20 mg PO BID tab QUEtiapine [SEROquel] 100 mg PO DAILY Hydrocodone/Acetaminophen [Ozan 10-325] 1 tab PO TID PRN PRN Reason: Pain Furosemide [Lasix] 40 mg PO DAILY Cyclobenzaprine [Flexeril] 10 mg PO TID PRN PRN Reason: Muscle Spasm Simvastatin [Zocor] 40 mg PO DAILY Citalopram Hydrobromide [CeleXA] 20 mg PO DAILY buPROPion HCL [buPROPion HCL SR] 150 mg PO DAILY OXcarbazepine [Trileptal] 300 mg PO BID busPIRone HCL 5 mg PO BID Discharge Medication List Omeprazole 20 mg PO DAILY 07/23/17 [History] Carvedilol [Coreg*] 12.5 mg PO BID-W/MEALS #60 tab 07/29/17 [Rx] Lisinopril [Zestril] 20 mg PO BID tab 07/29/17 [Rx] amLODIPine [Norvasc] 10 mg PO DAILY #90 tab 07/29/17 [Rx] hydrALAZINE HCL [Apresoline] 25 mg PO BID #60 tab 07/29/17 [Rx] Cyclobenzaprine [Flexeril] 10 mg PO TID PRN 03/24/18 [History] Furosemide [Lasix] 40 mg PO DAILY 03/24/18 [History] Hydrocodone/Acetaminophen [[place]zan 10-325] 1 tab PO TID PRN 03/24/18 [History] QUEtiapine [SEROquel] 100 mg PO DAILY 03/24/18 [History] Simvastatin [Zocor] 40 mg PO DAILY 05/13/18 [History] Citalopram Hydrobromide [CeleXA] 20 mg PO DAILY 09/04/18 [History] OXcarbazepine [Trileptal] 300 mg PO BID 03/14/20 [History] buPROPion HCL [buPROPion HCL SR] 150 mg PO DAILY 03/14/20 [History] busPIRone HCL 5 mg PO BID 03/14/20 [History] Insulin Detemir (Levemir) [Levemir] 20 unit SQ BID #1 syr 03/20/20 [Rx] Levofloxacin [Levaquin] 500 mg PO Q24H #3 tab 03/20/20 [Rx] Follow up Appointment(s)/Referral(s): Cleveland Gomes MD [STAFF PHYSICIAN] - 3 Days Flavio Gipson DO [Doctor of Osteopathic Medicine] - 2 Weeks Ambulatory/Diagnostic Orders: Complete Blood Count w/diff [LAB.AMB] Time Frame: 3 Days, Location: None Selected Activity/Diet/Wound Care/Special Instructions: Pending follow-up blood pressure Accu-Cheks before meals and at bedtime, maintain log and take to follow-up with PCP for further recommendations.
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
[2020-03-20 16:54] LABS: Glucose,Whole Blood 259 mg/dL (75-99)
[2020-03-20] MEDS: cloNIDine HCL 0.1 MG TAB PO SCH ×2 (16:58→21:10)
[2020-03-20] MEDS: SODIUM CHLORIDE 0.9% 1,000 ML IV SCH (17:48)
--- NOTE | 2020-03-20 18:35 | PN ---
PROGRESS NOTE DATE OF SERVICE: 03/20/2020 REASON FOR FOLLOWUP: Pneumonia. INTERVAL HISTORY: The patient is currently afebrile. The patient is breathing more comfortably. The patient denies having any chest pain or shortness of breath. Cough has much improved and dry. No nausea, no vomiting. No abdominal pain or diarrhea. PHYSICAL EXAMINATION: Blood pressure 180/81 with a pulse of 64, temperature 98.8. He is 96% on room air. General description is an elderly male up in the room in no distress. RESPIRATORY SYSTEM: Unlabored breathing with decreased intensity of breath sounds. No wheeze or crackle. HEART: S1, S2. Regular rate and rhythm. ABDOMEN: Soft. No tenderness. LABS: No new labs have been obtained today. DIAGNOSTIC IMPRESSION AND PLAN: Patient admitted to hospital with pneumonia, concern for possible community-acquired. The patient seems to have shown overall clinical improvement on Rocephin and Levaquin. Plan to finish therapy with oral Levaquin and monitor his clinical course closely. MMODL / IJN: [id number] /
[2020-03-20 20:56] LABS: Glucose,Whole Blood 349 mg/dL (75-99)
[2020-03-20] MEDS: QUEtiapine 100 MG TAB PO SCH (21:06)
[2020-03-21 06:23] LABS: Glucose,Whole Blood 135 mg/dL (75-99)
[2020-03-21] MEDS: carvediloL 12.5 MG TAB PO SCH (06:46)
[2020-03-21] MEDS: INSULIN ASPART (NovoLOG) 100 UNIT/ML VIAL SQ SCH (06:46)
[2020-03-21] MEDS: PANTOPRAZOLE 40 MG TABLET PO SCH (06:46)
[2020-03-21] MEDS ORDERED: FAMOTIDINE 20 MG TAB PO SCH (09:00)
[2020-03-21] MEDS: OXcarbazepine 300 MG TAB PO SCH (10:58)
[2020-03-21] MEDS: INSULIN DETEMIR (LEVEMIR) 100 UNIT/ML SYR SQ SCH (10:58)
[2020-03-21] MEDS: buPROPion SR 150 MG TABLET.ER PO SCH (10:59)
[2020-03-21] MEDS: busPIRone HCl 5 MG TAB PO SCH (10:59)
[2020-03-21] MEDS: CITALOPRAM HYDROBROMIDE 20 MG TAB PO SCH (10:59)
[2020-03-21] MEDS: cloNIDine HCL 0.1 MG TAB PO SCH (10:59)
[2020-03-21] MEDS: FUROSEMIDE 40 MG TAB PO SCH (11:00)
[2020-03-21] MEDS: lisinopriL 20 MG TAB PO SCH (11:00)
[2020-03-21] MEDS: hydrALAZINE HCL 25 MG TAB PO SCH (11:00)
[2020-03-21] MEDS: ATORVASTATIN 20 MG TAB PO SCH (11:00)
[2020-03-21] MEDS ORDERED: LEVOFLOXACIN 250 MG TAB PO SCH (11:00)
[2020-03-21] MEDS: amLODIPine 10 MG TAB PO SCH (11:00)
[2020-03-21] MEDS: ENOXAPARIN 40 MG/0.4 ML SYRINGE SQ SCH (11:00)
[2020-03-21 11:23] VITALS: BP 153/86; PULSE 54; RESP 14; TEMP 98.5
--- NOTE | 2020-03-21 11:27 | PN ---
PROGRESS NOTE DATE OF SERVICE: 03/21/2020. REASON FOR FOLLOWUP: Pneumonia. INTERVAL HISTORY: Patient is currently afebrile. The patient is breathing comfortably. Denies having chest pain. No shortness of breath or cough. No nausea, vomiting, abdominal pain. No diarrhea. Currently waiting for discharge. EXAM: Blood pressure 155/70 with a pulse of 65. Temperature 98.2. He is 94% on room air. General description: The patient is an elderly male up in the bed in no distress. Respiratory system: Unlabored breathing, decreased breath sounds at the base. No wheeze. Heart S1, S2. Regular rate and rhythm. Abdomen soft, no tenderness. LABS: No new labs have been obtained today. DIAGNOSTIC IMPRESSION AND PLAN: Patient admitted to the hospital with pneumonia, likely community-acquired. Sputum is negative. To finish therapy with oral Levaquin and close outpatient followup. MMODL / IJN: [id number] /
[2020-03-21 11:37] LABS: Glucose,Whole Blood 208 mg/dL (75-99)
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
== END 2020-03-21 13:15 | disposition home or self-care (01) | DRG 177 ==
LOC: EC 13:03 → 3SCARD 16:32
PROVIDERS: ADMIT Family Medicine; ATTEND Family Medicine
DX: J69.0 Pneumonitis due to inhalation of food and vomit (principal); J80 Acute respiratory distress syndrome; J15.9 Unspecified bacterial pneumonia; I15.8 Other secondary hypertension; T38.0X5A Adverse effect of glucocorticoids and synthetic analogues, initial encounter; I69.320 Aphasia following cerebral infarction; E11.36 Type 2 diabetes mellitus with diabetic cataract; T75.89XD Other specified effects of external causes, subsequent encounter; X00.0XXD Exposure to flames in uncontrolled fire in building or structure, subsequent encounter; D64.9 Anemia, unspecified; E11.65 Type 2 diabetes mellitus with hyperglycemia; E78.00 Pure hypercholesterolemia, unspecified; E78.5 Hyperlipidemia, unspecified; F20.9 Schizophrenia, unspecified; F41.9 Anxiety disorder, unspecified; G47.00 Insomnia, unspecified; M19.90 Unspecified osteoarthritis, unspecified site; Z79.4 Long term (current) use of insulin; Z66 Do not resuscitate; Z79.899 Other long term (current) drug therapy; Z20.828 Contact with and (suspected) exposure to other viral communicable diseases; Z82.3 Family history of stroke; Z83.3 Family history of diabetes mellitus; Z87.891 Personal history of nicotine dependence; Z81.1 Family history of alcohol abuse and dependence; Z81.8 Family history of other mental and behavioral disorders; Z88.6 Allergy status to analgesic agent; Z88.5 Allergy status to narcotic agent; Z91.09 Other allergy status, other than to drugs and biological substances; Z79.891 Long term (current) use of opiate analgesic
CPT/HCPCS: 36415; 71045; 71260; 74230; 80048; 80053; 82550; 82728; 83036; 83605; 83615; 83880; 84145; 84484; 85025; 85379; 85384; 86140; 87040; 87070; 87205; 87449; 93005; 94760; 94762; 96365; 96366; 96375; 99285

== ENCOUNTER → 2021-05-25 | Outpatient (CLI) | payer MEDICARE, OTHER ==
[~2021-05-25] MED LIST: REGADENOSON 0.4 MG/5 ML SYRINGE IV PRN
--- NOTE | 2021-05-25 12:30 | NM ---
EXAMINATION TYPE: NM stress lexiscan cardiolite DATE OF EXAM: 05/25/2021 COMPARISON: NONE HISTORY: Pain TECHNIQUE: After the intravenous administration of 10 mCi Tc 99m Sestamibi - Cardiolite resting SPEC T images acquired 50 minutes post injection. The patient received 0.4mg Lexiscan, 24.6 mCi Tc 99m Sestamibi - Stress images obtained [address] injection FINDINGS: Review of stress and rest SPECT images demonstrates no distinct perfusion abnormality. Gated analysi s shows normal wall motion with an estimated left ventricular ejection fraction of 43 %. IMPRESSION: 1. No evidence of stress-induced reversible ischemia. 2. Ejection fraction of 43% correlate clinically.
--- NOTE | 2021-05-25 16:39 | EST ---
EXERCISE STRESS AGE: 71 SEX: M HT: 5'8" WT: 220 lbs. PROTOCOL: Lexiscan Cardiolite STAGE: NA DURATION OF EXERCISE: NA HEART RATE REST: 58 BLOOD PRESSURE REST: 171/81 MAXIMUM HEART RATE ACHIEVED: 67 MAXIMUM BLOOD PRESSURE: 171/81 85% MPHR: 128 100% MPHR: 151 METS: NA INDICATIONS: Chest pain CLINICAL INFORMATION: Baseline EKG revealed normal sinus rhythm with LVH by voltage criteria and repolarization abnormality with ST-segment depression. With Lexiscan administration, heart rate went up from 58 to 67 beats per minute. Blood pressure changed from 170/81 to 151/69, came back to baseline. EKG remained inconclusive. By EKG criteria, this is an inconclusive Lexiscan stress test with LVH and repolarization changes. The nuclear scan results, which are more pertinent, will be reported by the radiologist. RA / LINDSEYN: [id number] /
== END | disposition home or self-care (01) ==
LOC: RADNMMAIN 07:36
PROVIDERS: ATTEND Family Medicine
DX: R07.9 Chest pain, unspecified (principal)
CPT/HCPCS: 93017; 78452; A9500; J2785

== ENCOUNTER 2022-01-04 09:24 | Inpatient (IN) | payer MEDICARE, OTHER ==
[2022-01-04] MEDS ORDERED: LABETALOL 5 MG/ML VIAL MDV IVP STA ×2 (09:31→10:59)
[2022-01-04 09:35] LABS: Glucose,Whole Blood 297 mg/dL (75-99)
[2022-01-04 09:59] LABS: Basophils # (A) 0.1 k/uL (0-0.2); Basophils % (A) 0 %; Eosinophils # (A) 0.2 k/uL (0-0.7); Eosinophils % (A) 2 %; HCT 38.8 % (39.0-53.0); Lymphocytes # (A) 0.9 k/uL (1.0-4.8); Lymphocytes % (A) 8 %; MCHC 30.8 g/dL (31.0-37.0); MCV 84.1 fL (80.0-100.0); Mean Platelet Volume 9.3; Monocytes # (A) 0.3 k/uL (0-1.0); Monocytes % (A) 2 %; Neutrophils # (A) 9.7 k/uL (1.3-7.7); Neutrophils % (A) 87 %; Platelet Count 237 k/uL (150-450); RBC 4.61 m/uL (4.30-5.90); RDW 14.5 % (11.5-15.5); WBC 11.2 k/uL (3.8-10.6)
--- NOTE | 2022-01-04 10:02 | CT ---
EXAMINATION TYPE: CT brain wo con for TPA DATE OF EXAM: 01/04/2022 COMPARISON: CT dated 09/04/2018 HISTORY: Neuro deficit, acute, stroke suspected CT DLP: 1948.3 mGycm (including CTA) Automated exposure control for dose reduction was used. TECHNIQUE: CT scan of the brain is performed without IV contrast administration. FINDINGS: Chronic left frontal and left parietal cortical and subcortical infarcts with extensive left centrum semiovale and arredondo radiata white matter hypodensities likely representing advanced chronic microvas cular ischemic changes or gliotic changes. Smaller infarcts are seen in the basal ganglia and the rig ht frontal lobe. No acute intracranial hemorrhage. No gross acute cortical infarct. No midline shift, herniation or ve ntriculomegaly. Unremarkable basal cisterns, sella and CP angles. No gross space-occupying lesion, vasogenic edema or mass effect. Unremarkable orbits. Clear visualized paranasal sinuses and mastoid air cells. Degenerative/arthritic changes of the atlantoodontoid articulation. Unremarkable calvarial bones. IMPRESSION: Chronic infarcts as described above. No acute intracranial hemorrhage or gross acute cortical infarct however a small acute or hyperacute infarct cannot be excluded by this CT scan.
[2022-01-04 10:19] LABS: Lactic Acid, Venous 2.4 mmol/L (0.7-2.0)
--- NOTE | 2022-01-04 10:29 | XR ---
EXAMINATION TYPE: XR chest 2V DATE OF EXAM: 01/04/2022 COMPARISON: 03/20/2020 TECHNIQUE: PA and lateral views submitted. HISTORY: Altered mental status FINDINGS: Heart is enlarged and there is coarsened interstitium. There is bibasilar consolidation and small lef t effusion. Metallic foreign body overlying the posterior upper abdomen on the lateral view. IMPRESSION: Cardiomegaly with bilateral infiltrate and small effusion. Underlying CHF versus pneumoni a.
--- NOTE | 2022-01-04 10:32 | CT ---
EXAMINATION TYPE: CT angio head neck DATE OF EXAM: 01/04/2022 HISTORY: slurred speech COMPARISON: Nonenhanced CT brain performed earlier same day CT DLP: 818.3 mGycm. Automated Exposure Control for Dose Reduction was Utilized. TECHNIQUE: CTA scan of the head and neck is performed with IV Contrast, patient injected with 65 mL of Isovue 370, axial images are obtained, coronal and sagittal reformatted images are reviewed. 3D re constructed images are created on an independent workstation and reviewed. FINDINGS: Carotid/Vascular Structures: Artifactual images. The pulmonary trunk measures 3.4 cm. Scattered arter ial atherosclerotic calcifications. Suspected focal stenosis of the origin of the right vertebral art uyen yet patent distally. Small left vertebral artery with suspected focal stenosis at its origin. Hyp oplastic V4 segment of the left vertebral artery. Severe stenosis of the proximal portion of the left internal carotid artery by a partially calcified atheromatous plaque causing about 90% stenosis with markedly reduced caliber of the artery distally up to its bifurcation. Atherosclerotic calcification of the bifurcation of the right common carotid artery extending into the proximal portion of the rig ht internal carotid artery causing about 50% stenosis yet patent distally. Attenuated caliber of the left PHILIPP the left MCA with segments of stenosis. Acute occlusion of one of the left PHILIPP or left MCA b ranches cannot be excluded. Grossly unremarkable remainder of the visualized neck and intracranial ar teries Other: No intracranial abnormal enhancement. Degenerative changes of the cervical spine. IMPRESSION: Severe stenosis of the origin of the left internal carotid artery with markedly reduced enhancing ceasar iber of the left internal carotid artery up to its bifurcation as well as the left PHILIPP and left MCA a s described above. This could be the underlying etiology for the left cerebral hemisphere chronic ischemic changes and c hronic watershed infarcts. Acute occlusion of one of the left PHILIPP or left MCA branches cannot be excl uded. Other atherosclerotic changes as described above.
[2022-01-04 10:35] LABS: Prothrombin Time 10.2 sec (9.0-12.0)
[2022-01-04 10:36] LABS: INR 0.9 (<1.2); Partial Thromboplastin Time 21.9 sec (22.0-30.0)
[2022-01-04] MEDS ORDERED: ATORVASTATIN 40 MG TAB PO STA (11:12)
[2022-01-04] MEDS ORDERED: TICAGRELOR 90 MG TAB PO STA (11:12)
[2022-01-04 11:14] LABS: Albumin 3.5 g/dL (3.5-5.0); Calcium 9.1 mg/dL (8.4-10.2); Potassium 3.8 mmol/L (3.5-5.1); Total Bilirubin 0.5 mg/dL (0.2-1.3); Total Protein 6.6 g/dL (6.3-8.2)
[2022-01-04] MEDS ORDERED: CLOPIDOGREL 75 MG TAB PO STA (11:44)
[2022-01-04] MEDS ORDERED: NON FORMULARY DRUG (Carvedilol [Coreg] 25 MG Tablet) PO SCH (11:45)
[2022-01-04] MEDS ORDERED: FUROSEMIDE 40 MG TAB PO SCH (11:45)
[2022-01-04] MEDS ORDERED: lisinopriL 20 MG TAB PO SCH (11:45)
[2022-01-04] MEDS: carvediloL 12.5 MG TAB PO SCH ×2 (12:08→18:07)
[2022-01-04] MEDS: amLODIPine 10 MG TAB PO SCH (12:08)
[2022-01-04] MEDS: hydrALAZINE HCL 25 MG TAB PO SCH ×2 (12:08→20:26)
[2022-01-04] MEDS: LOSARTAN 50 MG TAB PO SCH (12:10)
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
[2022-01-04] MEDS ORDERED: INSULIN DETEMIR (LEVEMIR) 100 UNIT/ML SYR SQ SCH ×2 (13:00→21:00)
[2022-01-04] MEDS ORDERED: SODIUM CHLORIDE 0.9% 1,000 ML IV STA ×2 (13:08→13:24)
[2022-01-04 15:15] LABS: Glucose,Whole Blood 412 mg/dL (75-99)
[2022-01-04] MEDS ORDERED: FUROSEMIDE 10 MG/ML 4 ML VIAL IV SCH (15:25)
--- NOTE | 2022-01-04 16:52 | US ---
EXAMINATION TYPE: US venous doppler duplex LE DATE OF EXAM: 01/04/2022 3:55 PM COMPARISON: NONE CLINICAL HISTORY: leg swelling. Bilateral leg edema SIDE PERFORMED: bilateral TECHNIQUE: The lower extremity deep venous system is examined utilizing real time linear array sonog vasquez with graded compression, doppler sonography and color-flow sonography. VESSELS IMAGED: Common Femoral Vein Deep Femoral Vein Greater Saphenous Vein * Femoral Vein Popliteal Vein Proximal Calf Veins (* superficial vessels) Right Leg: no evidence of DVT as visualized. Unable to rotate leg into adequate position, unable to obtain compression images right popliteal vein Left Leg: no evidence of DVT as visualized IMPRESSION: Grayscale, color doppler, spectral doppler imaging performed of the deep veins of the lo wer extremities. There is normal flow, compressibility, vascular waveforms. No evidence of DVT of t he lower extremities.
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
--- NOTE | 2022-01-04 17:50 | ECHOF ---
Referral Reason: MEASUREMENTS -------- HEIGHT: 175.3 cm WEIGHT: 102.5 kg BP: 189/81 RVIDd: 2.9 cm (< 3.3) IVSd: 1.9 cm (0.6 - 1.1) LVIDd: 4.0 cm (3.9 - 5.3) LVPWd: 1.8 cm (0.6 - 1.1) IVSs: 2.1 cm LVIDs: 2.3 cm LVPWs: 2.2 cm LAESV Index (A-L): 23.21 ml/m Ao Diam: 3.8 cm (2.0 - 3.7) AV Cusp: 2.3 cm (1.5 - 2.6) MV E Pardeep: 0.86 m/s MV DecT: 141 ms MV A Pardeep: 1.13 m/s MV E/A Ratio: 0.76 FINDINGS -------- Sinus rhythm. This was a technically adequate study. The left ventricular size is normal. There is severe concentric left ventricular hypertrophy. Ove rall left ventricular systolic function is normal with, an EF between 55 - 60 %. The right ventricle is normal in size. Normal LA size by volume 22+/-6 ml/m2. The right atrial size is normal. Contrast study was performed with 2 iv injections of 8 ccs of agitated normal saline, at rest, and wi th cough. Interatrial and interventricular septum intact. The aortic valve is trileaflet, and appears structurally normal. No aortic stenosis or regurgitation. The mitral valve is normal. There is trace to mild mitral regurgitation. The tricuspid valve appears structurally normal. Trace tricuspid regurgitation present. Unable to estimate RVSP due to inadequate TR jet spectral doppler profile. There is no pulmonic regurgitation present. The aortic root is mildy dilated. IVC Not well visulized. There is no pericardial effusion. CONCLUSIONS -------- 1. There is severe concentric left ventricular hypertrophy. 2. Overall left ventricular systolic function is normal with, an EF between 55 - 60 %. 3. Normal LA size by volume 22+/-6 ml/m2. 4. Contrast study was performed with 2 iv injections of 8 ccs of agitated normal saline, at rest, and with cough. 5. The aortic valve is trileaflet, and appears structurally normal. No aortic stenosis or regurgitati on. 6. There is trace to mild mitral regurgitation. 7. Trace tricuspid regurgitation present. 8. The aortic root is mildy dilated. 9. There is no pericardial effusion. CHIEF OF STAFF DOCTOR: Veronique Banegas RDCS
[2022-01-04 19:05] LABS: Glucose,Whole Blood 320 mg/dL (75-99)
[2022-01-04] MEDS: INSULIN ASPART (NovoLOG) 100 UNIT/ML VIAL SQ SCH ×2 (20:17→20:26)
[2022-01-04] MEDS: TICAGRELOR 90 MG TAB PO SCH (20:26)
[2022-01-04 20:29] LABS: Glucose,Whole Blood 289 mg/dL (75-99)
[2022-01-04] MEDS ORDERED: QUEtiapine 100 MG TAB PO SCH (21:00)
[2022-01-05] MEDS: hydrALAZINE HCL 25 MG TAB PO PRN ×2 (00:03→05:05)
[2022-01-05 01:05] LABS: Amorphous Sediment,Urine Rare /hpf; Appearance,Urine Clear (Clear); Bilirubin,Urine Negative (Negative); Blood,Urine Moderate (Negative); Color,Urine Light Yellow; Glucose,Urine (UA) 3+ (Negative); Hyaline Casts,Urine 12 /lpf (0-2); Ketones,Urine Negative (Negative); Leukocyte Esterase,Urine Negative (Negative); Nitrite,Urine Negative (Negative); Protein,Urine 3+ (Negative); RBC,Urine 51 /hpf (0-5); Specific Gravity,Urine 1.015 (1.001-1.035); Urobilinogen,Urine <2.0 mg/dL (<2.0); WBC,Urine 2 /hpf (0-5)
[2022-01-05 01:20] LABS: Amphetamine Screen,Urine Not Detected (NotDetected); Barbiturate Screen,Urine Not Detected (NotDetected); Benzodiazepines Screen,Urine Not Detected (NotDetected); Cocaine Screen,Urine Detected (NotDetected); Methadone Screen, Urine Not Detected (NotDetected); Opiate Screen,Urine Not Detected (NotDetected); Oxycodone Screen, Urine Not Detected (NotDetected); Phencyclidine Screen,Urine Not Detected (NotDetected); Tricyclic Antidepressant,Urine Detected (NotDetected); Urn Cannabinoid Scrn Not Detected (NotDetected)
[2022-01-05 06:22] LABS: Glucose,Whole Blood 187 mg/dL (75-99)
[2022-01-05] MEDS: INSULIN ASPART (NovoLOG) 100 UNIT/ML VIAL SQ SCH ×4 (06:27→21:05)
[2022-01-05] MEDS: carvediloL 12.5 MG TAB PO SCH ×2 (06:27→16:58)
[2022-01-05] MEDS ORDERED: INSULIN DETEMIR (LEVEMIR) 100 UNIT/ML SYR SQ SCH ×2 (07:00)
[2022-01-05] MEDS: LOSARTAN 50 MG TAB PO SCH (07:39)
[2022-01-05] MEDS: amLODIPine 10 MG TAB PO SCH (07:39)
[2022-01-05] MEDS: ASPIRIN 81 MG PO SCH (07:40)
[2022-01-05] MEDS: TICAGRELOR 90 MG TAB PO SCH ×2 (07:40→20:28)
[2022-01-05] MEDS: hydrALAZINE HCL 25 MG TAB PO SCH ×2 (07:40→20:28)
[2022-01-05] MEDS: buPROPion XL 150 MG TAB.ER.24H PO SCH (09:35)
[2022-01-05] MEDS: QUEtiapine 25 MG TAB PO SCH ×2 (09:35→20:28)
--- NOTE | 2022-01-05 09:35 | US ---
EXAMINATION TYPE: US carotid duplex BILAT DATE OF EXAM: 01/05/2022 COMPARISON: US, CTA 01/04/2022. CLINICAL HISTORY: stroke. Stroke per order. Hx hypertension. EXAM MEASUREMENTS: RIGHT: Peak Systolic Velocity (PSV) cm/sec ----- Right CCA: 72.4 ----- Right ICA: 72.1 ----- Right ECA: 78.6 ICA/CCA ratio: 1.0 RIGHT: End Diastole cm/sec ----- Right CCA: 15.3 ----- Right ICA: 15.9 ----- Right ECA: 17.9 LEFT: Peak Systolic Velocity (PSV) cm/sec ----- Left CCA: 92.9 ----- Left ICA: 139.1 ----- Left ECA: 155.5 ICA/CCA ratio: 1.5 LEFT: End Diastole cm/sec ----- Left CCA: 18.8 ----- Left ICA: 41.5 ----- Left ECA: 13.6 VERTEBRALS (direction of flow): Right Vertebral: Antegrade Left Vertebral: Antegrade Rhythm: Normal *Exam is very limited, patient was unable to turn his neck into proper position to evaluate mid and d istal right ICA. Only proximal portion of right ICA is evaluated. Plaque seen bilateral CCA, bulbs, and bifurcations. Elevated velocity noted within left prox ICA and left ECA. Unable to follow left ICA distally. Great amount of plaque noted within bilateral proximal ICA. IMPRESSION: 1. Extensive plaquing of the left carotid bifurcation and left internal carotid artery which is bett er characterized on CTA neck 01/04/2022. By velocities there is 50-69% stenosis by peak systolic veloci ty. 2. Focal narrowing of the right carotid bifurcation is better characterized on recent CTA 01/04/2022. By velocities there is less than 50% stenosis. Criteria for Assigning % of Stenosis / Diameter reduction (Estimation based on the indirect measurements of the internal carotid artery velocities (ICA PSV). 1. Normal (no stenosis)=ICA PSV < 125 cm/s: ratio < 2.0: ICA EDV<40 cm/s. 2. Less than 50% stenosis=ICA PSV < 125 cm/s: ratio < 2.0: ICA EDV<40 cm/s. 3. 50 to 69% stenosis=ICA PSV of 125 to 230 cm/s: ration 2.0 ? 4.0: ICA EDV 40-100 cm/s. 4. Greater than 70% stenosis to near occlusion= ICA PSV > 230 cm/s: ratio > 4.0: ICA EDV > 100 cm/s. 5. Near occlusion= ICA PSV velocities may be low or undetectable: variable ratio and ICA EDV. 6. Total occlusion=unable to detect flow.
[2022-01-05 09:55] LABS: Basophils % (A) 0 %; Eosinophils # (A) 0.1 k/uL (0-0.7); Eosinophils % (A) 1 %; HCT 42.3 % (39.0-53.0); HGB 12.9 gm/dL (13.0-17.5); Lymphocytes # (A) 1.8 k/uL (1.0-4.8); Lymphocytes % (A) 16 %; MCH 25.8 pg (25.0-35.0); MCHC 30.5 g/dL (31.0-37.0); MCV 84.7 fL (80.0-100.0); Mean Platelet Volume 8.9; Monocytes # (A) 0.5 k/uL (0-1.0); Monocytes % (A) 5 %; Neutrophils # (A) 8.7 k/uL (1.3-7.7); Neutrophils % (A) 78 %; Platelet Count 248 k/uL (150-450); RDW 14.6 % (11.5-15.5); WBC 11.3 k/uL (3.8-10.6)
[2022-01-05 10:07] LABS: African American GFR (CKD) 41 (>60 ml/min/1.73 sqM); Anion Gap 5 mmol/L; Blood Urea Nitrogen 21 mg/dL (9-20); Calcium 9.3 mg/dL (8.4-10.2); Carbon Dioxide 20 mmol/L (22-30); Chloride 112 mmol/L (98-107); Glucose 148 mg/dL (74-99); Non-African American GFR(CKD) 36 (>60 ml/min/1.73 sqM); Potassium 3.5 mmol/L (3.5-5.1); Sodium 137 mmol/L (137-145)
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
[2022-01-05 11:53] LABS: Glucose,Whole Blood 122 mg/dL (75-99)
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
[2022-01-05] MEDS: TAMSULOSIN 0.4 MG CAP.ER.24H PO SCH (13:56)
[2022-01-05] MEDS ORDERED: INSULIN DETEMIR (LEVEMIR) 100 UNIT/ML SYR SQ ONE (14:00)
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
[2022-01-05] MEDS ORDERED: LIDOCAINE 5% PATCH TOPICAL SCH (15:00)
[2022-01-05 16:32] LABS: Chol/HDL Ratio 5.17 Ratio; LDL Cholesterol,Calculated 183.7 mg/dL (0.0-131.0)
[2022-01-05 16:50] LABS: Glucose,Whole Blood 252 mg/dL (75-99)
--- NOTE | 2022-01-05 20:18 | US ---
EXAMINATION TYPE: US renals and bladder DATE OF EXAM: 01/05/2022 COMPARISON: NONE CLINICAL HISTORY: Hematuria and protein in urine. EXAM MEASUREMENTS: Right Kidney: 9.8 x 4.2 x 4.5 cm Left Kidney: 11.09 x 6.2 x 5.2 cm Patient of large body habitus, unable to move or hold his breath to assist intrusion analyst, study technic ally difficult and limited. Right Kidney: limited visualization, cyst measuring 0.8 x 0.7 x 1.4cm Left Kidney: limited views, lobular contour, cyst measuring 2.7 x 2.4 x 2.0 Bladder: Montoya IMPRESSION: No evidence of solid renal mass or obstruction. Bilateral renal cortical cysts. Urinary bladder was e mpty. There is Montoya catheter in the bladder.
[2022-01-05] MEDS: HEPARIN SODIUM,PORCINE/PF 5,000 UNIT/0.5 ML SYRINGE SQ SCH (20:28)
[2022-01-05] MEDS: CLOTRIMAZOLE 1% CREAM 30 GM TUBE TOPICAL SCH (20:29)
[2022-01-05 20:51] LABS: Glucose,Whole Blood 281 mg/dL (75-99)
[2022-01-05] MEDS ORDERED: FAMOTIDINE 20 MG/2 ML VIAL IV SCH (21:00)
[2022-01-05 21:12] LABS: Appearance,Urine Clear (Clear); Bacteria,Urine Rare /hpf; Bilirubin,Urine Negative (Negative); Blood,Urine Moderate (Negative); Color,Urine Yellow; Glucose,Urine (UA) 4+ (Negative); Hyaline Casts,Urine 9 /lpf (0-2); Ketones,Urine Negative (Negative); Leukocyte Esterase,Urine Negative (Negative); Mucus,Urine Rare /hpf; Nitrite,Urine Negative (Negative); PH, Urine 6.5 (5.0-8.0); Protein,Urine 3+ (Negative); RBC,Urine >182 /hpf (0-5); Specific Gravity,Urine 1.016 (1.001-1.035); Squamous Epithelial Cell,Urine <1 /hpf (0-4); Urobilinogen,Urine <2.0 mg/dL (<2.0); WBC,Urine 8 /hpf (0-5)
[2022-01-05 21:50] LABS: Creatinine,Urine Random 114.1 mg/dL
[2022-01-06] MEDS: hydrALAZINE HCL 20 MG/ML 1 ML VIAL IVP PRN ×3 (00:55→16:34)
[2022-01-06 06:00] LABS: Glucose,Whole Blood 126 mg/dL (75-99)
[2022-01-06] MEDS: INSULIN ASPART (NovoLOG) 100 UNIT/ML VIAL SQ SCH ×4 (06:11→21:08)
[2022-01-06] MEDS ORDERED: INSULIN DETEMIR (LEVEMIR) 100 UNIT/ML SYR SQ SCH (07:00)
[2022-01-06] MEDS: carvediloL 12.5 MG TAB PO SCH ×2 (07:05→16:34)
[2022-01-06] MEDS: LOSARTAN 50 MG TAB PO SCH (07:27)
[2022-01-06] MEDS: TAMSULOSIN 0.4 MG CAP.ER.24H PO SCH (07:27)
[2022-01-06] MEDS: hydrALAZINE HCL 25 MG TAB PO SCH ×2 (07:28→21:07)
[2022-01-06] MEDS: amLODIPine 10 MG TAB PO SCH (07:28)
[2022-01-06] MEDS: buPROPion XL 150 MG TAB.ER.24H PO SCH (07:28)
[2022-01-06] MEDS: QUEtiapine 25 MG TAB PO SCH ×2 (07:28→21:08)
[2022-01-06] MEDS: TICAGRELOR 90 MG TAB PO SCH ×2 (07:28→21:08)
[2022-01-06] MEDS: ASPIRIN 81 MG PO SCH (07:28)
[2022-01-06] MEDS: HEPARIN SODIUM,PORCINE/PF 5,000 UNIT/0.5 ML SYRINGE SQ SCH ×2 (07:28→21:09)
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
[2022-01-06] MEDS: KETOROLAC 0.5% OPHTH DROPS 5 ML BTL RIGHT EYE SCH (09:13)
[2022-01-06] MEDS: CLOTRIMAZOLE 1% CREAM 30 GM TUBE TOPICAL SCH ×2 (09:14→21:09)
--- NOTE | 2022-01-06 09:42 | P.PN ---
Subjective Patient is seen in follow-up for acute kidney injury on chronic kidney disease and proteinuria. Has a Montoya catheter for urinary retention. Nonoliguric. Oral intake here. No vomiting or diarrhea. Vital signs are stable. Blood pressure high. General: Awake. No acute distress. HEENT: Head exam is unremarkable. LUNGS: Breath sounds decreased. HEART: Rate and Rhythm are regular. ABDOMEN: Soft, no distention. EXTREMITITES: No edema. Objective - Vital Signs Vital signs: Vital Signs Temp 99.1 F 01/06/22 07:22 Pulse 97 01/06/22 08:00 Resp 18 01/06/22 07:22 BP 188/89 01/06/22 07:22 Pulse Ox 95 01/06/22 07:22 Intake & Output 01/05/22 01/06/22 01/06/22 18:59 06:59 18:59 Intake Total 1200 Output Total 2150 800 Balance -2150 400 Intake: Oral 1200 Output: Urine 2150 800 Straight 1075 Other: Voiding Method Indwelling Catheter Indwelling Catheter Indwelling Catheter - Labs CBC & Chem 7: 01/05/22 09:23 01/05/22 09:23 Labs: Abnormal Lab Results - Last 24 Hours (Table) 01/05/22 01/05/22 01/05/22 Range/Units 09:23 09:23 09:23 WBC 11.3 H (3.8-10.6) k/uL Hgb 12.9 L (13.0-17.5) gm/dL MCHC 30.5 L (31.0-37.0) g/dL Neutrophils # 8.7 H (1.3-7.7) k/uL Chloride 112 H (98-107) mmol/L Carbon Dioxide 20 L (22-30) mmol/L BUN 21 H (9-20) mg/dL Creatinine 1.88 H (0.66-1.25) mg/dL Glucose 148 H (74-99) mg/dL POC Glucose (mg/dL) (75-99) mg/dL Hemoglobin A1c 9.6 H (0.0-6.0) % Cholesterol 262.00 H (0.00-200.00) mg/dL LDL Cholesterol, Calc 183.7 H (0.0-131.0) mg/dL Urine Protein (Negative) Urine Glucose (UA) (Negative) Urine Blood (Negative) Urine RBC (0-5) /hpf Urine WBC (0-5) /hpf Urine Bacteria (None) /hpf Hyaline Casts (0-2) /lpf Urine Mucus (None) /hpf 01/05/22 01/05/22 01/05/22 Range/Units 11:50 16:43 20:00 WBC (3.8-10.6) k/uL Hgb (13.0-17.5) gm/dL MCHC (31.0-37.0) g/dL Neutrophils # (1.3-7.7) k/uL Chloride (98-107) mmol/L Carbon Dioxide (22-30) mmol/L BUN (9-20) mg/dL Creatinine (0.66-1.25) mg/dL Glucose (74-99) mg/dL POC Glucose (mg/dL) 122 H 252 H (75-99) mg/dL Hemoglobin A1c (0.0-6.0) % Cholesterol (0.00-200.00) mg/dL LDL Cholesterol, Calc (0.0-131.0) mg/dL Urine Protein 3+ H (Negative) Urine Glucose (UA) 4+ H (Negative) Urine Blood Moderate H (Negative) Urine RBC >182 H (0-5) /hpf Urine WBC 8 H (0-5) /hpf Urine Bacteria Rare H (None) /hpf Hyaline Casts 9 H (0-2) /lpf Urine Mucus Rare H (None) /hpf 01/05/22 01/06/22 Range/Units 20:46 05:55 WBC (3.8-10.6) k/uL Hgb (13.0-17.5) gm/dL MCHC (31.0-37.0) g/dL Neutrophils # (1.3-7.7) k/uL Chloride (98-107) mmol/L Carbon Dioxide (22-30) mmol/L BUN (9-20) mg/dL Creatinine (0.66-1.25) mg/dL Glucose (74-99) mg/dL POC Glucose (mg/dL) 281 H 126 H (75-99) mg/dL Hemoglobin A1c (0.0-6.0) % Cholesterol (0.00-200.00) mg/dL LDL Cholesterol, Calc (0.0-131.0) mg/dL Urine Protein (Negative) Urine Glucose (UA) (Negative) Urine Blood (Negative) Urine RBC (0-5) /hpf Urine WBC (0-5) /hpf Urine Bacteria (None) /hpf Hyaline Casts (0-2) /lpf Urine Mucus (None) /hpf Assessment and Plan Plan: Assessment: 1. Acute kidney injury mostly prerenal secondary to diuresis with component of urinary retention. Diuretics held. Creatinine was 2.14 on admission and 1.88 yesterday. No hydronephrosis noted on kidney ultrasound. 2. Chronic kidney disease stage IIIa with baseline creatinine in the range of 1.4-1.6. Etiology is likely diabetic kidney disease. 3. Acute ischemic CVA. 4. Hypertension with chronic kidney disease. Blood pressure In the range of 160-200 systolic per neurology. 5. Metabolic acidosis secondary to acute kidney injury. 6. Diabetes mellitus. 7. Urinary retention. On Flomax. Has Montoya catheter. Plan: Monitor bladder scans and insert Montoya catheter if has persistent urinary retention. Follow-up serologies. Echo showed preserved ejection fraction. Maintain current antihypertensives. Blood pressure to be kept between 160-200 systolic per neurology. Avoid rapid drop in blood pressure. Continue to monitor renal function and urine output. Follow up morning labs.
[2022-01-06 10:32] LABS: Basophils # (A) 0.1 k/uL (0-0.2); Basophils % (A) 1 %; Eosinophils # (A) 0.2 k/uL (0-0.7); Eosinophils % (A) 2 %; HCT 42.2 % (39.0-53.0); HGB 12.9 gm/dL (13.0-17.5); Lymphocytes # (A) 1.6 k/uL (1.0-4.8); Lymphocytes % (A) 14 %; MCH 25.5 pg (25.0-35.0); MCHC 30.5 g/dL (31.0-37.0); MCV 83.4 fL (80.0-100.0); Mean Platelet Volume 9.3; Monocytes # (A) 0.5 k/uL (0-1.0); Monocytes % (A) 4 %; Neutrophils # (A) 9.1 k/uL (1.3-7.7); Neutrophils % (A) 79 %; Platelet Count 233 k/uL (150-450); RBC 5.06 m/uL (4.30-5.90); RDW 14.6 % (11.5-15.5); WBC 11.5 k/uL (3.8-10.6)
[2022-01-06 10:45] LABS: Calcium 8.9 mg/dL (8.4-10.2); Magnesium 1.8 mg/dL (1.6-2.3); Potassium 3.5 mmol/L (3.5-5.1)
[2022-01-06 11:34] LABS: Glucose,Whole Blood 163 mg/dL (75-99)
--- NOTE | 2022-01-06 12:29 | CT ---
"EXAMINATION TYPE: CT brain wo con DATE OF EXAM: 01/06/2022 HISTORY: Follow up CVA CT DLP: 1099.4 mGycm. Automated Exposure Control for Dose Reduction was Utilized. TECHNIQUE: CT scan of the head is performed without contrast. COMPARISON: CT brain 2 days ago. FINDINGS: There is no acute intracranial hemorrhage or midline shift identified. There is diffuse v entricular and sulcal prominence consistent with diffuse age-related cerebral atrophy. There is low- attenuation in the periventricular white matter consistent with chronic small vessel ischemic change. Old infarct left middle cerebral artery redemonstrated with left-sided ex vacuo jugular dilatation. Old fracture medial wall left orbit again seen. The globes are intact and the visualized sinuses are clear. There is no hyperdensity in sulcal effacement high right frontal parietal region axial images 41 through 48 consistent with evolving acute/subacute infarct measuring approximately 4.8 x 2.9 cm f or reference axial image 44 IMPRESSION: Evolving high right frontal parietal acute infarct on this exam as detailed above not sesar dayami seen on CT 2 days earlier. A Scotts level critical message alert has been initiated for Don Lino MD via the [facility] 0 | Critical Results System on 01/06/2022 12:26 PM. This message alert has been sent to Don Lino MD via the preferences provided by the clinician for the receipt of Radiology Critical Findings. [facility] [id number]."
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
[2022-01-06 13:35] LABS: Appearance,Urine Clear (Clear); Bacteria,Urine Moderate /hpf; Bilirubin,Urine Negative (Negative); Blood,Urine Moderate (Negative); Color,Urine Yellow; Glucose,Urine (UA) 2+ (Negative); Hyaline Casts,Urine 3 /lpf (0-2); Ketones,Urine Negative (Negative); Leukocyte Esterase,Urine Trace (Negative); Mucus,Urine Rare /hpf; Nitrite,Urine Negative (Negative); PH, Urine 6.5 (5.0-8.0); Protein,Urine 3+ (Negative); RBC,Urine 169 /hpf (0-5); Specific Gravity,Urine 1.017 (1.001-1.035); Urobilinogen,Urine <2.0 mg/dL (<2.0); WBC,Urine 30 /hpf (0-5)
[2022-01-06] MEDS ORDERED: POTASSIUM CHLORIDE ER 20 MEQ TAB.ER PO STA (13:49)
[2022-01-06 16:29] LABS: Glucose,Whole Blood 141 mg/dL (75-99)
[2022-01-06 16:34] LABS: Protein, Total 5.8 g/dL (6.2-8.2)
[2022-01-06 16:47] LABS: Hepatitis A Antibody IgM Nonreactive (Nonreactive); Hepatitis B Core IgM Nonreactive (Nonreactive); Hepatitis B Surface Antigen Nonreactive (Nonreactive); Hepatitis C IgG Antibody Nonreactive (Nonreactive)
[2022-01-06 20:04] LABS: Glucose,Whole Blood 139 mg/dL (75-99)
[2022-01-06] MEDS: FAMOTIDINE 20 MG TAB PO SCH (21:08)
[2022-01-07] MEDS: hydrALAZINE HCL 20 MG/ML 1 ML VIAL IVP PRN (03:50)
[2022-01-07 06:06] LABS: Glucose,Whole Blood 149 mg/dL (75-99)
[2022-01-07 08:23] LABS: Total Bilirubin 0.7 mg/dL (0.2-1.3); Total Protein 6.3 g/dL (6.3-8.2)
[2022-01-07 08:26] LABS: Magnesium 1.9 mg/dL (1.6-2.3); Potassium 4.2 mmol/L (3.5-5.1)
[2022-01-07] MEDS: INSULIN ASPART (NovoLOG) 100 UNIT/ML VIAL SQ SCH ×4 (09:00→20:20)
[2022-01-07] MEDS: QUEtiapine 25 MG TAB PO SCH ×2 (09:25→20:20)
[2022-01-07] MEDS: hydrALAZINE HCL 25 MG TAB PO SCH ×2 (09:25→20:19)
[2022-01-07] MEDS: carvediloL 12.5 MG TAB PO SCH ×2 (09:25→17:18)
[2022-01-07] MEDS: LOSARTAN 50 MG TAB PO SCH (09:25)
[2022-01-07] MEDS: HEPARIN SODIUM,PORCINE/PF 5,000 UNIT/0.5 ML SYRINGE SQ SCH ×2 (09:25→20:20)
[2022-01-07] MEDS: ASPIRIN 81 MG PO SCH (09:25)
[2022-01-07] MEDS: TAMSULOSIN 0.4 MG CAP.ER.24H PO SCH (09:25)
[2022-01-07] MEDS: amLODIPine 10 MG TAB PO SCH (09:25)
[2022-01-07] MEDS: TICAGRELOR 90 MG TAB PO SCH ×2 (09:26→20:20)
[2022-01-07] MEDS: buPROPion XL 150 MG TAB.ER.24H PO SCH (09:27)
[2022-01-07] MEDS ORDERED: SODIUM BICARB 8.4% 50 ML SYR (1 MEQ/ML) IV STA (09:30)
--- NOTE | 2022-01-07 09:34 | P.PN ---
Subjective Progress Note Date: 01/06/22 Patient was seen for a follow-up. Patient apparently has clinically improved. Patient tells me that he is right-handed. He states that he lives with his girlfriend came. Please refer to examination below regarding his improved status. His speech has improved. Objective - Vital Signs Vital signs: Vital Signs Temp 98.5 F 01/06/22 11:13 Pulse 85 01/06/22 11:13 Resp 18 01/06/22 11:13 BP 158/79 01/06/22 11:37 Pulse Ox 96 01/06/22 11:13 Intake & Output 01/05/22 01/06/22 01/06/22 18:59 06:59 18:59 Intake Total 1200 Output Total 2150 800 400 Balance -2150 400 -400 Intake: Oral 1200 Output: Urine 2150 800 400 Straight 1075 Other: Voiding Method Indwelling Catheter Indwelling Catheter Indwelling Catheter - Exam Patient is an elderly Afro-[place] male, laying in the bed, in no acute distress. Patient is fully alert and awake. No head or gaze deviation. Patient knows that he is in [place], but that he says he is in [place] in [place]. He is able to name objects like pen, what he called as "pencil". When I showed him knuckles, patient states it's "fist". When I presented spoon, patient said "pencil". Some perseveration. Patient's repetition has much improved. Less paraphasic errors. Patient can comprehend fairly well. Attention, concentration and fund of knowledge is limited. On cranial examination, pupils are equal, round and reacting to light, visual redman reveal slightly better vision on the left. Gaze is midline. Patient has proptosis. Conjunctival injection. Face is symmetric, tongue protrudes to the midline. Palatal elevation and sensation cannot be assessed, hearing is slightly decreased and shoulder shrug decreased bilaterally. Facial sensations equal. On muscle strength testing, the left side is completely flaccid. The right arm is spastic from previous stroke. The biceps and triceps on the right is normal 5. Deltoid is 3+. Product Responsibility Liaison is 4+. Patient has spastic right hand . Cannot fully open the pool hand. Patient only can flicker movement of the right leg. No m ovement of the left leg. Patient is very spastic. Deep tendon reflexes are (right/left) biceps 3/1, brachioradialis 2+/0, knees 3/1+, plantar is downgoing on the right, upgoing on the left. Sensory examination shows very inconsistent response, could not clearly assess if there is any deficit. He would constantly repeat right left, right left so forth. Cerebellar function showed moderate ataxia for [id number] testing on the right, with significant past pointing. Cannot perform in the other 3 extremities. Tone is increased on the right side. Gait not able to be checked because of left hemiplegia. On general examination, there is no carotid bruit or murmur, S1-S2 audible. Abdomen is soft nontender. No organomegaly, bowel sounds present. Chest is clear. Peripheral pulses are present. Moderate peripheral edema. - Labs CBC & Chem 7: 01/06/22 10:10 01/07/22 07:22 Labs: Abnormal Lab Results - Last 24 Hours (Table) 01/05/22 01/05/22 01/05/22 Range/Units 09:23 09:23 16:43 WBC (3.8-10.6) k/uL Hgb (13.0-17.5) gm/dL MCHC (31.0-37.0) g/dL Neutrophils # (1.3-7.7) k/uL Chloride (98-107) mmol/L Carbon Dioxide (22-30) mmol/L BUN (9-20) mg/dL Creatinine (0.66-1.25) mg/dL Glucose (74-99) mg/dL POC Glucose (mg/dL) 252 H (75-99) mg/dL Hemoglobin A1c 9.6 H (0.0-6.0) % Cholesterol 262.00 H (0.00-200.00) mg/dL LDL Cholesterol, Calc 183.7 H (0.0-131.0) mg/dL Urine Protein (Negative) Urine Glucose (UA) (Negative) Urine Blood (Negative) Urine RBC (0-5) /hpf Urine WBC (0-5) /hpf Urine Bacteria (None) /hpf Hyaline Casts (0-2) /lpf Urine Mucus (None) /hpf 01/05/22 01/05/22 01/06/22 Range/Units 20:00 20:46 05:55 WBC (3.8-10.6) k/uL Hgb (13.0-17.5) gm/dL MCHC (31.0-37.0) g/dL Neutrophils # (1.3-7.7) k/uL Chloride (98-107) mmol/L Carbon Dioxide (22-30) mmol/L BUN (9-20) mg/dL Creatinine (0.66-1.25) mg/dL Glucose (74-99) mg/dL POC Glucose (mg/dL) 281 H 126 H (75-99) mg/dL Hemoglobin A1c (0.0-6.0) % Cholesterol (0.00-200.00) mg/dL LDL Cholesterol, Calc (0.0-131.0) mg/dL Urine Protein 3+ H (Negative) Urine Glucose (UA) 4+ H (Negative) Urine Blood Moderate H (Negative) Urine RBC >182 H (0-5) /hpf Urine WBC 8 H (0-5) /hpf Urine Bacteria Rare H (None) /hpf Hyaline Casts 9 H (0-2) /lpf Urine Mucus Rare H (None) /hpf 01/06/22 01/06/22 01/06/22 Range/Units 10:10 10:10 11:32 WBC 11.5 H (3.8-10.6) k/uL Hgb 12.9 L (13.0-17.5) gm/dL MCHC 30.5 L (31.0-37.0) g/dL Neutrophils # 9.1 H (1.3-7.7) k/uL Chloride 110 H (98-107) mmol/L Carbon Dioxide 20 L (22-30) mmol/L BUN 23 H (9-20) mg/dL Creatinine 2.04 H (0.66-1.25) mg/dL Glucose 198 H (74-99) mg/dL POC Glucose (mg/dL) 163 H (75-99) mg/dL Hemoglobin A1c (0.0-6.0) % Cholesterol (0.00-200.00) mg/dL LDL Cholesterol, Calc (0.0-131.0) mg/dL Urine Protein (Negative) Urine Glucose (UA) (Negative) Urine Blood (Negative) Urine RBC (0-5) /hpf Urine WBC (0-5) /hpf Urine Bacteria (None) /hpf Hyaline Casts (0-2) /lpf Urine Mucus (None) /hpf Assessment and Plan Assessment: * Acute ischemic stroke probable right MCA territory, with complete left tim plegia. * History of CVA in March 2021, with residual spastic right hemiparesis * Hypertension * Diabetes * Hyperlipidemia Plan: * Patient underwent repeat computed tomography scan of the head. It revealed evolving high right frontal parietal acute infarct I personally reviewed the computed tomography scan and agree with the findings. * Patient has clinically improved. His speech has improved. Patient is more alert and awake. However continues to be severely hemiplegic on the left side. * Patient has severe stenosis of the left ICA, but the acute symptoms are on the contralateral side. Vascular surgery input appreciated. Not a candidate for CEA this time, as the stenosis is currently on the asymptomatic side. However now with current severe left hemiplegia, the only partially functional side is the right, which needs to be preserved if possible. Therefore left CEA as an outpatient in 4-6 weeks could be considered if indicated. * Lipid panel cholesterol 262, LDL 183, HDL 50 and triglycerides 138. Lipids are poorly controlled. Start Lipitor 80 mg daily. * B12 732, hemoglobin A1c 9.6, folate 6.5. Start folic acid 1 mg daily. * Continue Brilinta 90 mg twice a day. Continue aspirin 81 mg daily. * 2-D echo showed severe concentric LVH. Left ventricle systolic function is normal with EF between 55-60%. Normal left atrial size. Bubble study was performed with agitated saline. Interatrial and interventricular septum intact. No aortic stenosis. Recommend KEVIN to evaluate for embolic source. * Dr. Kel Gipson to resume neurology service in the morning.
--- NOTE | 2022-01-07 09:36 | P.PN ---
Subjective Patient is seen in follow-up for acute kidney injury on chronic kidney disease and proteinuria. Has a Montoya catheter for urinary retention. Nonoliguric. Oral intake fair. No vomiting or diarrhea. Not a very reliable historian. Vital signs are stable. Blood pressure high. General: Awake. No acute distress. HEENT: Head exam is unremarkable. LUNGS: Breath sounds decreased. HEART: Rate and Rhythm are regular. ABDOMEN: Soft, no distention. EXTREMITITES: No edema. Objective - Vital Signs Vital signs: Vital Signs Temp 98.7 F 01/07/22 07:32 Pulse 100 01/07/22 07:32 Resp 32 H 01/07/22 07:32 BP 189/89 01/07/22 07:32 Pulse Ox 96 01/07/22 07:32 Intake & Output 01/06/22 01/07/22 01/07/22 18:59 06:59 18:59 Intake Total 10 Output Total 650 600 Balance -650 -600 10 Weight 106.5 kg Intake: IV 10 Invasive Line 1 10 Output: Urine 650 600 Other: Voiding Method Indwelling Catheter Indwelling Catheter - Labs CBC & Chem 7: 01/06/22 10:10 01/07/22 07:22 Labs: Abnormal Lab Results - Last 24 Hours (Table) 01/06/22 01/06/22 01/06/22 Range/Units 10:10 10:10 10:10 WBC 11.5 H (3.8-10.6) k/uL Hgb 12.9 L (13.0-17.5) gm/dL MCHC 30.5 L (31.0-37.0) g/dL Neutrophils # 9.1 H (1.3-7.7) k/uL Chloride 110 H (98-107) mmol/L Carbon Dioxide 20 L (22-30) mmol/L BUN 23 H (9-20) mg/dL Creatinine 2.04 H (0.66-1.25) mg/dL Glucose 198 H (74-99) mg/dL POC Glucose (mg/dL) (75-99) mg/dL Total Protein (PEP) 5.8 L (6.2-8.2) g/dL Albumin (3.5-5.0) g/dL Urine Protein (Negative) Urine Glucose (UA) (Negative) Urine Blood (Negative) Ur Leukocyte Esterase (Negative) Urine RBC (0-5) /hpf Urine WBC (0-5) /hpf Urine Bacteria (None) /hpf Hyaline Casts (0-2) /lpf Urine Mucus (None) /hpf 01/06/22 01/06/22 01/06/22 Range/Units 11:32 13:11 16:27 WBC (3.8-10.6) k/uL Hgb (13.0-17.5) gm/dL MCHC (31.0-37.0) g/dL Neutrophils # (1.3-7.7) k/uL Chloride (98-107) mmol/L Carbon Dioxide (22-30) mmol/L BUN (9-20) mg/dL Creatinine (0.66-1.25) mg/dL Glucose (74-99) mg/dL POC Glucose (mg/dL) 163 H 141 H (75-99) mg/dL Total Protein (PEP) (6.2-8.2) g/dL Albumin (3.5-5.0) g/dL Urine Protein 3+ H (Negative) Urine Glucose (UA) 2+ H (Negative) Urine Blood Moderate H (Negative) Ur Leukocyte Esterase Trace H (Negative) Urine RBC 169 H (0-5) /hpf Urine WBC 30 H (0-5) /hpf Urine Bacteria Moderate H (None) /hpf Hyaline Casts 3 H (0-2) /lpf Urine Mucus Rare H (None) /hpf 01/06/22 01/07/22 01/07/22 Range/Units 20:02 06:01 07:22 WBC (3.8-10.6) k/uL Hgb (13.0-17.5) gm/dL MCHC (31.0-37.0) g/dL Neutrophils # (1.3-7.7) k/uL Chloride 117 H (98-107) mmol/L Carbon Dioxide 13 L (22-30) mmol/L BUN 26 H (9-20) mg/dL Creatinine 2.29 H (0.66-1.25) mg/dL Glucose 160 H (74-99) mg/dL POC Glucose (mg/dL) 139 H 149 H (75-99) mg/dL Total Protein (PEP) (6.2-8.2) g/dL Albumin 3.0 L (3.5-5.0) g/dL Urine Protein (Negative) Urine Glucose (UA) (Negative) Urine Blood (Negative) Ur Leukocyte Esterase (Negative) Urine RBC (0-5) /hpf Urine WBC (0-5) /hpf Urine Bacteria (None) /hpf Hyaline Casts (0-2) /lpf Urine Mucus (None) /hpf Microbiology - Last 24 Hours (Table) 01/06/22 13:11 Urine Culture - Preliminary Urine,Voided Assessment and Plan Plan: Assessment: 1. Acute kidney injury secondary to ATN secondary to hemodynamics and retention. Rule out GN. Does have history of cocaine use. Diuretics held. Renal function worse. Creatinine 2.29 today. No hydronephrosis noted on kidney ultrasound. 2. Chronic kidney disease stage IIIa with baseline creatinine in the range of 1.4-1.6. Etiology is likely diabetic kidney disease. 3. Acute ischemic CVA. Brain CT from 01/06/2022 showed evolving high right frontal parietal acute infarct. Neurology following. 4. Hypertension with chronic kidney disease. Blood pressure In the range of 160-200 systolic per neurology. 5. Metabolic acidosis secondary to acute kidney injury. 6. Diabetes mellitus. 7. Urinary retention. On Flomax. Has Montoya catheter. Plan: Follow-up serologies. Hepatitis negative. Complements normal. Echo showed preserved ejection fraction. Maintain current antihypertensives. Blood pressure to be kept between 160-200 systolic per neurology. Avoid rapid drop in blood pressure. Continue to monitor renal function and urine output. 2 A sodium bicarb IV push now. Start bicarb drip at 50 mL an hour. Prognosis guarded.
[2022-01-07] MEDS: KETOROLAC 0.5% OPHTH DROPS 5 ML BTL RIGHT EYE SCH (09:42)
[2022-01-07] MEDS: CLOTRIMAZOLE 1% CREAM 30 GM TUBE TOPICAL SCH ×2 (09:42→20:20)
[2022-01-07] MEDS ORDERED: SODIUM BICARB 8.4% 50 ML SYR (1 MEQ/ML) ONE (09:44)
[2022-01-07] MEDS: DEXTROSE 5% IN WATER 1,000 ML with SODIUM BICARB (1 MEQ/ML) 150 ML IV SCH ×2 (09:45→20:58)
--- NOTE | 2022-01-07 10:26 | P.PN ---
Subjective Progress Note Date: 01/07/22 Principal diagnosis: Carotid stenosis, CVA Excuse me this is a 71-year-old -[place] male who presented to the emergency department with symptoms of acute stroke. Patient continues to have flaccid left upper and lower extremity. He was alert and oriented [address] Patient with some aphasia. This has residual right upper and lower extremity weakness. He denied any acute changes. He did undergo a repeat CT of the brain yesterday that reported a balding high right frontal parietal acute infarct not clearly seen on CT 2 days earlier. Subacute infarct was measuring approximately 4.8 x 2.9 cm. Patient was positive for cocaine in his urine and states admits that he does use cocaine at home. Did not elaborate how often. According to medicines no acute does stop the cocaine again that does not state how often he uses. Patient is scheduled for KEVIN today. Objective - Vital Signs Vital signs: Vital Signs Temp 98.7 F 01/07/22 07:32 Pulse 100 01/07/22 07:32 Resp 32 H 01/07/22 07:32 BP 189/89 01/07/22 07:32 Pulse Ox 96 01/07/22 07:32 Intake & Output 01/06/22 01/07/22 01/07/22 18:59 06:59 18:59 Intake Total 10 Output Total 650 600 Balance -650 -600 10 Weight 106.5 kg Intake: IV 10 Invasive Line 1 10 Output: Urine 650 600 Other: Voiding Method Indwelling Catheter Indwelling Catheter Indwelling Catheter - Exam General appearance: The patient is alert, oriented to self and place, appears in no acute distress. HET: Head is normocephalic and atraumatic. Pupils are equal and reactive. Left eye with a white discharge. Neck: Supple without lymphadenopathy. Trachea midline. No audible carotid bruit. Heart: S1 S2. Regular rate and rhythm. Lungs: Clear to auscultation bilaterally. Abdomen: Soft, nontender, nondistended. Extremities: Normal skin color and turgor. No cyanosis, rash, ulceration, clubbing, or edema. Radial pulses +2 bilaterally Neurological: Left upper and lower extremity flaccid. Right upper and lower extremity with weakness. The patient was able to answer most questions appropriately and does follow simple commands. - Labs CBC & Chem 7: 01/06/22 10:10 01/07/22 07:22 Labs: Abnormal Lab Results - Last 24 Hours (Table) 01/06/22 01/06/22 01/06/22 Range/Units 10:10 10:10 10:10 WBC 11.5 H (3.8-10.6) k/uL Hgb 12.9 L (13.0-17.5) gm/dL MCHC 30.5 L (31.0-37.0) g/dL Neutrophils # 9.1 H (1.3-7.7) k/uL Chloride 110 H (98-107) mmol/L Carbon Dioxide 20 L (22-30) mmol/L BUN 23 H (9-20) mg/dL Creatinine 2.04 H (0.66-1.25) mg/dL Glucose 198 H (74-99) mg/dL POC Glucose (mg/dL) (75-99) mg/dL Total Protein (PEP) 5.8 L (6.2-8.2) g/dL Albumin (3.5-5.0) g/dL Urine Protein (Negative) Urine Glucose (UA) (Negative) Urine Blood (Negative) Ur Leukocyte Esterase (Negative) Urine RBC (0-5) /hpf Urine WBC (0-5) /hpf Urine Bacteria (None) /hpf Hyaline Casts (0-2) /lpf Urine Mucus (None) /hpf 01/06/22 01/06/22 01/06/22 Range/Units 11:32 13:11 16:27 WBC (3.8-10.6) k/uL Hgb (13.0-17.5) gm/dL MCHC (31.0-37.0) g/dL Neutrophils # (1.3-7.7) k/uL Chloride (98-107) mmol/L Carbon Dioxide (22-30) mmol/L BUN (9-20) mg/dL Creatinine (0.66-1.25) mg/dL Glucose (74-99) mg/dL POC Glucose (mg/dL) 163 H 141 H (75-99) mg/dL Total Protein (PEP) (6.2-8.2) g/dL Albumin (3.5-5.0) g/dL Urine Protein 3+ H (Negative) Urine Glucose (UA) 2+ H (Negative) Urine Blood Moderate H (Negative) Ur Leukocyte Esterase Trace H (Negative) Urine RBC 169 H (0-5) /hpf Urine WBC 30 H (0-5) /hpf Urine Bacteria Moderate H (None) /hpf Hyaline Casts 3 H (0-2) /lpf Urine Mucus Rare H (None) /hpf 01/06/22 01/07/22 01/07/22 Range/Units 20:02 06:01 07:22 WBC (3.8-10.6) k/uL Hgb (13.0-17.5) gm/dL MCHC (31.0-37.0) g/dL Neutrophils # (1.3-7.7) k/uL Chloride 117 H (98-107) mmol/L Carbon Dioxide 13 L (22-30) mmol/L BUN 26 H (9-20) mg/dL Creatinine 2.29 H (0.66-1.25) mg/dL Glucose 160 H (74-99) mg/dL POC Glucose (mg/dL) 139 H 149 H (75-99) mg/dL Total Protein (PEP) (6.2-8.2) g/dL Albumin 3.0 L (3.5-5.0) g/dL Urine Protein (Negative) Urine Glucose (UA) (Negative) Urine Blood (Negative) Ur Leukocyte Esterase (Negative) Urine RBC (0-5) /hpf Urine WBC (0-5) /hpf Urine Bacteria (None) /hpf Hyaline Casts (0-2) /lpf Urine Mucus (None) /hpf Microbiology - Last 24 Hours (Table) 01/06/22 13:11 Urine Culture - Preliminary Urine,Voided Assessment and Plan Assessment: 1. Acute ischemic stroke right frontal parietal lobe with left hemiplegia 2. Severe left ICA stenosis 3. History of CVA 4. Diabetes mellitus 5. Hyperlipidemia 6. Former smoker 7. Positive for cocaine Plan: 1. Continue with medical management 2. Carotid Doppler and CTA demonstrate left-sided severe stenosis but symptoms are from the contralateral side. No vascular surgery intervention at this time. 3. Appreciate neurology's recommendations, will follow patient outpatient to further discuss left ICA stenosis and possibly proceeding with intervention within the next 2 weeks. 4. Continue with aspirin, Brilinta, and atorvastatin Thank you for this consultation, we will continue to follow. The impression and plan of care has been dictated as directed. Dr.Giliberto I performed a history and examination of this patient, discussed the same with the dictator. I agree with the dictator's note ,documented as a scribe. Any additional findings or plans will be noted.
[2022-01-07 11:37] LABS: Glucose,Whole Blood 196 mg/dL (75-99)
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
--- NOTE | 2022-01-07 12:40 | P.PN ---
Subjective Progress Note Date: 01/07/22 I am seeing the patient for the first time during this admission. Please refer to Dr. Cortés's notes for further details. Per the nurse she felt he was drowsy and less responsive late in the morning compared to earlier to morning. Upon seeing him he was opening his eyes and seems to responding slightly. It seems he has worsening of kidney function. Objective - Vital Signs Vital signs: Vital Signs Temp 98.6 F 01/07/22 11:19 Pulse 80 01/07/22 11:19 Resp 28 H 01/07/22 11:19 BP 161/76 01/07/22 11:19 Pulse Ox 96 01/07/22 11:19 Intake & Output 01/06/22 01/07/22 01/07/22 18:59 06:59 18:59 Intake Total 10 Output Total 650 600 Balance -650 -600 10 Weight 106.5 kg Intake: IV 10 Invasive Line 1 10 Output: Urine 650 600 Other: Voiding Method Indwelling Catheter Indwelling Catheter Indwelling Catheter - Exam Patient does not seem in acute distress. Patient is drowsy but is briefly awakeable to voice. He correctly states his name. He could tell me place. He stated the month is March. Could not tell me year. He was able to name pen upon showing him. Could not assess language or neglect because of his condition. Cranial Nerves: He would open his eyes and no fixed-gaze noted. Could not assess visual redman or EOM. No facial weakness. No dysarthria. Motor: Gait is deferred because of cooperation. Would briefly pick-up his right upper extremity above gravity. Seems has some increased tone of bilateral uper. Sensation: Could not assess. - Labs CBC & Chem 7: 01/06/22 10:10 01/07/22 07:22 Labs: Abnormal Lab Results - Last 24 Hours (Table) 01/06/22 01/06/22 01/06/22 Range/Units 10:10 11:32 13:11 Chloride (98-107) mmol/L Carbon Dioxide (22-30) mmol/L BUN (9-20) mg/dL Creatinine (0.66-1.25) mg/dL Glucose (74-99) mg/dL POC Glucose (mg/dL) 163 H (75-99) mg/dL Total Protein (PEP) 5.8 L (6.2-8.2) g/dL Albumin (3.5-5.0) g/dL Urine Protein 3+ H (Negative) Urine Glucose (UA) 2+ H (Negative) Urine Blood Moderate H (Negative) Ur Leukocyte Esterase Trace H (Negative) Urine RBC 169 H (0-5) /hpf Urine WBC 30 H (0-5) /hpf Urine Bacteria Moderate H (None) /hpf Hyaline Casts 3 H (0-2) /lpf Urine Mucus Rare H (None) /hpf 01/06/22 01/06/22 01/07/22 Range/Units 16:27 20:02 06:01 Chloride (98-107) mmol/L Carbon Dioxide (22-30) mmol/L BUN (9-20) mg/dL Creatinine (0.66-1.25) mg/dL Glucose (74-99) mg/dL POC Glucose (mg/dL) 141 H 139 H 149 H (75-99) mg/dL Total Protein (PEP) (6.2-8.2) g/dL Albumin (3.5-5.0) g/dL Urine Protein (Negative) Urine Glucose (UA) (Negative) Urine Blood (Negative) Ur Leukocyte Esterase (Negative) Urine RBC (0-5) /hpf Urine WBC (0-5) /hpf Urine Bacteria (None) /hpf Hyaline Casts (0-2) /lpf Urine Mucus (None) /hpf 01/07/22 Range/Units 07:22 Chloride 117 H (98-107) mmol/L Carbon Dioxide 13 L (22-30) mmol/L BUN 26 H (9-20) mg/dL Creatinine 2.29 H (0.66-1.25) mg/dL Glucose 160 H (74-99) mg/dL POC Glucose (mg/dL) (75-99) mg/dL Total Protein (PEP) (6.2-8.2) g/dL Albumin 3.0 L (3.5-5.0) g/dL Urine Protein (Negative) Urine Glucose (UA) (Negative) Urine Blood (Negative) Ur Leukocyte Esterase (Negative) Urine RBC (0-5) /hpf Urine WBC (0-5) /hpf Urine Bacteria (None) /hpf Hyaline Casts (0-2) /lpf Urine Mucus (None) /hpf Microbiology - Last 24 Hours (Table) 01/06/22 13:11 Urine Culture - Preliminary Urine,Voided Assessment and Plan Assessment: * Acute ischemic stroke probable right MCA territory, with complete left hemiplegia. Etiology is crytogenic (appears embolic in nature) vs in addition due to cocaine use (which causes vasocontriction). * History of CVA over left hemisphere in March 2021, with residual spastic right hemiparesis * Severe stenosis of left ICA * Toxic-metabolic encephalopathy * Hypertension * Diabetes * Hyperlipidemia * Positive for cocaine use Plan: * Patient underwent repeat computed tomography scan of the head on 01/06/2022. It revealed evolving high right frontal parietal acute infarct I personally reviewed the computed tomography scan and agree with the findings. * Patient has clinically improved. His speech has improved. Patient is more alert and awake. However continues to be severely hemiplegic on the left s prerna. * Will get repeat CT head since per nurse he was more confused in the late morning. Seems more due to worsening of kidney function. * If he continues to be altered will consider getting a routine EEG. * Patient has severe stenosis of the left ICA, but the acute symptoms are on the contralateral side. Vascular surgery input appreciated. Not a candidate for CEA this time, as the stenosis is currently on the asymptomatic side. However now with current severe left hemiplegia, the only partially functional side is the right, which needs to be preserved if possible. Therefore left CEA as an outpatient in 4-6 weeks could be considered if indicated. * Lipid panel cholesterol 262, LDL 183, HDL 50 and triglycerides 138. Lipids are poorly controlled. On Lipitor 80 mg daily. * B12 732, hemoglobin A1c 9.6, folate 6.5. Start folic acid 1 mg daily. * Continue Brilinta 90 mg twice a day. Continue aspirin 81 mg daily. * 2-D echo showed severe concentric LVH. Left ventricle systolic function is normal with EF between 55-60%. Normal left atrial size. Bubble study was performed with agitated saline. Interatrial and interventricular septum intact. No aortic stenosis. Recommend KEVIN to evaluate for embolic source per Dr. Cortés. Cardiology is consulted. Recommend patient to follow-up with skilled nursing case manager as outpatient and possibly consider event monitor or loop recorder because of bilateral hemispheric stroke. * Will defer the rest of medical management to primary team. * For DVT prophylaxis: On sub heparin. * Upon discharge, recommend for patient to follow-up with neurologist within 1-2 weeks as outpatient. The plan is discussed with the patient's nurse. Kel Gipson M.D. Neuro-Hospitalist. Time with Patient: Less than 30
[2022-01-07] MEDS: INSULIN DETEMIR (LEVEMIR) 100 UNIT/ML SYR SQ SCH (13:38)
[2022-01-07 15:02] VITALS: BMI 34.7
[2022-01-07] MEDS: CYCLOBENZAPRINE 10 MG TAB PO PRN (15:29)
--- NOTE | 2022-01-07 15:45 | CT ---
EXAMINATION TYPE: CT brain wo con DATE OF EXAM: 01/07/2022 COMPARISON: CT dated 01/06/2022 HISTORY: Follow up of CVA CT DLP: 1074.4 mGycm Automated exposure control for dose reduction was used. TECHNIQUE: CT scan of the brain is performed without IV contrast administration. FINDINGS: Slightly enlarging right superior frontal cortical and subcortical hypodensity likely representing a progressive/evolving infarct. No gross hemorrhagic transformation. Stable chronic cortical and subcor tical left frontal and parietal infarcts as well as the scattered bilateral cerebral white matter chr onic ischemic changes. Bilateral basal ganglia chronic infarcts, also noted. No midline shift or herniation. Unremarkable basal cisterns, sella and CP angles. No gross space-occu pying lesion. Unremarkable orbits. Clear visualized paranasal sinuses and mastoid air cells. Unremark able calvarial bones. IMPRESSION: Slightly progressive/evolving right superior frontal cortical and subcortical infarct as described ab ove. No gross hemorrhagic transformation, midline shift or herniation.
[2022-01-07 15:59] LABS: Anti-DNA, DS unit <1.0 IU/mL; DNA Double-Stranded NEGATIVE (NEGATIVE)
[2022-01-07 16:31] LABS: Glucose,Whole Blood 352 mg/dL (75-99)
[2022-01-07 18:08] LABS: Gamma Globulin 0.72 g/dL (0.70-1.50)
[2022-01-07 20:04] LABS: Glucose,Whole Blood 259 mg/dL (75-99)
[2022-01-07] MEDS: FAMOTIDINE 20 MG TAB PO SCH (20:20)
[2022-01-07] MEDS: ATORVASTATIN 80 MG TAB PO SCH (20:20)
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
[2022-01-08] MEDS: ACETAMINOPHEN TAB 325 MG TAB PO PRN ×2 (03:15→15:44)
[2022-01-08 06:06] LABS: Glucose,Whole Blood 258 mg/dL (75-99)
[2022-01-08] MEDS: INSULIN DETEMIR (LEVEMIR) 100 UNIT/ML SYR SQ SCH (06:58)
[2022-01-08] MEDS: INSULIN ASPART (NovoLOG) 100 UNIT/ML VIAL SQ SCH ×4 (06:58→21:18)
[2022-01-08] MEDS: carvediloL 12.5 MG TAB PO SCH ×2 (08:41→16:47)
[2022-01-08] MEDS: TAMSULOSIN 0.4 MG CAP.ER.24H PO SCH (08:41)
[2022-01-08] MEDS: amLODIPine 10 MG TAB PO SCH (08:41)
[2022-01-08] MEDS: ASPIRIN 81 MG PO SCH (08:42)
[2022-01-08] MEDS: buPROPion XL 150 MG TAB.ER.24H PO SCH (08:43)
[2022-01-08] MEDS: CLOTRIMAZOLE 1% CREAM 30 GM TUBE TOPICAL SCH ×2 (08:44→21:19)
[2022-01-08] MEDS: HEPARIN SODIUM,PORCINE/PF 5,000 UNIT/0.5 ML SYRINGE SQ SCH ×2 (08:44→21:19)
[2022-01-08] MEDS: hydrALAZINE HCL 25 MG TAB PO SCH ×3 (08:45→21:18)
[2022-01-08] MEDS: LOSARTAN 50 MG TAB PO SCH (08:46)
[2022-01-08] MEDS: QUEtiapine 25 MG TAB PO SCH ×2 (08:46→21:18)
[2022-01-08] MEDS: KETOROLAC 0.5% OPHTH DROPS 5 ML BTL RIGHT EYE SCH (08:46)
[2022-01-08] MEDS: TICAGRELOR 90 MG TAB PO SCH ×2 (08:47→21:18)
[2022-01-08 09:07] LABS: Calcium 8.3 mg/dL (8.4-10.2); Magnesium 1.9 mg/dL (1.6-2.3); Potassium 3.4 mmol/L (3.5-5.1)
[2022-01-08] MEDS ORDERED: POTASSIUM CHLORIDE ER 20 MEQ TAB.ER PO STA (09:52)
--- NOTE | 2022-01-08 09:59 | P.PN ---
Subjective Patient is seen in follow-up for acute kidney injury on chronic kidney disease and proteinuria. Has a Montoya catheter for urinary retention. Nonoliguric. Oral intake fair. Has to be fed. No vomiting or diarrhea. Patient is awake and knows where he is. Quite lethargic. Vital signs are stable. Blood pressure high. General: Awake. No acute distress. HEENT: Head exam is unremarkable. LUNGS: Breath sounds decreased. ABDOMEN: Soft, no distention. EXTREMITITES: No edema. Objective - Vital Signs Vital signs: Vital Signs Temp 99 F 01/08/22 08:00 Pulse 86 01/08/22 08:00 Resp 28 H 01/08/22 08:00 BP 193/91 01/08/22 08:00 Pulse Ox 100 01/08/22 08:00 Intake & Output 01/07/22 01/08/22 01/08/22 18:59 06:59 18:59 Intake Total 750 Output Total 600 760 Balance 150 -760 Weight 106.5 kg 103 kg Intake: IV 10 Invasive Line 1 10 Intake, IV Titration 500 Amount Dextrose 5% in Water 1, 500 000 ml @ 50 mls/hr IV . Q23H GWENDOLYN with Sodium Bicarb (1 Meq/ml) 150 ml Rx#:[id number] Oral 240 Output: Urine 600 760 Other: Voiding Method Indwelling Catheter Indwelling Catheter # Bowel Movements 1 - Labs CBC & Chem 7: 01/06/22 10:10 01/08/22 08:23 Labs: Abnormal Lab Results - Last 24 Hours (Table) 01/06/22 01/07/22 01/07/22 Range/Units 10:10 11:35 16:30 Potassium (3.5-5.1) mmol/L Carbon Dioxide (22-30) mmol/L BUN (9-20) mg/dL Creatinine (0.66-1.25) mg/dL Glucose (74-99) mg/dL POC Glucose (mg/dL) 196 H 352 H (75-99) mg/dL Calcium (8.4-10.2) mg/dL Albumin (PEP) 2.80 L (3.80-4.90) g/dL Jzyfe-7-Xoisdfdtf 1.21 H (0.60-1.00) g/dL 01/07/22 01/08/22 01/08/22 Range/Units 20:01 06:04 08:23 Potassium 3.4 L (3.5-5.1) mmol/L Carbon Dioxide 21 L (22-30) mmol/L BUN 31 H (9-20) mg/dL Creatinine 2.30 H (0.66-1.25) mg/dL Glucose 258 H (74-99) mg/dL POC Glucose (mg/dL) 259 H 258 H (75-99) mg/dL Calcium 8.3 L (8.4-10.2) mg/dL Albumin (PEP) (3.80-4.90) g/dL Jbfwx-7-Qrsztjwxr (0.60-1.00) g/dL Microbiology - Last 24 Hours (Table) 01/06/22 13:11 Urine Culture - Final Urine,Voided Assessment and Plan Plan: Assessment: 1. Acute kidney injury secondary to ATN secondary to hemodynamics and retention. Rule out GN. Does have history of cocaine use. Diuretics held. Renal function stable. Creatinine 2.3. No hydronephrosis noted on kidney ultrasound. 2. Chronic kidney disease stage IIIa with baseline creatinine in the range of 1.4-1.6. Etiology is likely diabetic kidney disease. 3. Acute ischemic CVA. Brain CT from 01/06/2022 showed evolving high right frontal parietal acute infarct. Neurology following. 4. Hypertension with chronic kidney disease. Blood pressure kept in the range of 160-200 systolic per neurology. 5. Metabolic acidosis secondary to acute kidney injury. Improved with bicarbonate drip. 6. Diabetes mellitus. 7. Urinary retention. On Flomax. Has Montoya catheter. 8. Hypokalemia from poor intake. Magnesium normal. Plan: Follow-up serologies. Hepatitis negative. SUNITHA, double-stranded DNA antibody negative. Hepatitis negative. Complements normal. Echo showed preserved ejection fraction. KEVIN pending. Maintain current antihypertensives. Dose of oral hydralazine increased by cardiology. Maintain IV PRN hydralazine. Avoid rapid drop in blood pressure. Continue to monitor renal function and urine output. Start bicarb drip. Add oral bicarbonate. Replace potassium. DC Montoya catheter and monitor bladder scans to make sure no urinary retention. Prognosis guarded.
[2022-01-08] MEDS: DEXTROSE 5% IN WATER 1,000 ML with SODIUM BICARB (1 MEQ/ML) 150 ML IV SCH (10:02)
[2022-01-08] MEDS: SODIUM BICARBONATE TAB 650 MG TAB PO SCH ×2 (10:04→21:18)
--- NOTE | 2022-01-08 10:15 | P.PN ---
Subjective Progress Note Date: 01/08/22 Principal diagnosis: Carotid stenosis, CVA Patient seen as a follow-up for CVA and carotid stenosis. He underwent a repeat CT of the brain history evening showed slightly progressive/evolving right superior frontal cortical and subcortical infarct. No gross hematologic transfo rmation, midline shift or herniation. Yesterday he was supposed to undergo KEVIN, however that was canceled and rescheduled for today. Patient is alert and oriented to self and place, unsure of year and actually answered question inappropriately stating that his sister was statin. Patient was unable to raise his right arm off the bed and right leg. He was able to squeeze my hand with his right hand, and follow commands to wiggle his right toes. Left side remains flaccid. Objective - Vital Signs Vital signs: Vital Signs Temp 99 F 01/08/22 08:00 Pulse 86 01/08/22 08:00 Resp 28 H 01/08/22 08:00 BP 193/91 01/08/22 08:00 Pulse Ox 100 01/08/22 08:00 Intake & Output 01/07/22 01/08/22 01/08/22 18:59 06:59 18:59 Intake Total 750 Output Total 600 760 Balance 150 -760 Weight 106.5 kg 103 kg Intake: IV 10 Invasive Line 1 10 Intake, IV Titration 500 Amount Dextrose 5% in Water 1, 500 000 ml @ 50 mls/hr IV . Q23H GWENDOLYN with Sodium Bicarb (1 Meq/ml) 150 ml Rx#:[id number] Oral 240 Output: Urine 600 760 Other: Voiding Method Indwelling Catheter Indwelling Catheter # Bowel Movements 1 - Exam General appearance: The patient is alert, oriented to self and place, appears in no acute distress. HET: Head is normocephalic and atraumatic. Pupils are equal and reactive. Left eye with a white discharge. Neck: Supple without lymphadenopathy. Trachea midline. No audible carotid bruit. Heart: S1 S2. Regular rate and rhythm. Lungs: Clear to auscultation bilaterally. Abdomen: Soft, nontender, nondistended. Extremities: Normal skin color and turgor. No cyanosis, rash, ulceration, clubbing, or edema. Radial pulses +2 bilaterally Neurological: Alert and oriented 2, person and place. Left upper and lower extremity flaccid. Right upper and lower extremity with weakness, unable to raise arm off bed. Grasp 3/5. Right lower extremity weakness. The patient was able to answer most questions appropriately and does follow simple commands. - Labs CBC & Chem 7: 01/06/22 10:10 01/08/22 08:23 Labs: Abnormal Lab Results - Last 24 Hours (Table) 01/06/22 01/07/22 01/07/22 Range/Units 10:10 11:35 16:30 Potassium (3.5-5.1) mmol/L Carbon Dioxide (22-30) mmol/L BUN (9-20) mg/dL Creatinine (0.66-1.25) mg/dL Glucose (74-99) mg/dL POC Glucose (mg/dL) 196 H 352 H (75-99) mg/dL Calcium (8.4-10.2) mg/dL Albumin (PEP) 2.80 L (3.80-4.90) g/dL Fyyyt-9-Puqzyjhyp 1.21 H (0.60-1.00) g/dL 01/07/22 01/08/22 01/08/22 Range/Units 20:01 06:04 08:23 Potassium 3.4 L (3.5-5.1) mmol/L Carbon Dioxide 21 L (22-30) mmol/L BUN 31 H (9-20) mg/dL Creatinine 2.30 H (0.66-1.25) mg/dL Glucose 258 H (74-99) mg/dL POC Glucose (mg/dL) 259 H 258 H (75-99) mg/dL Calcium 8.3 L (8.4-10.2) mg/dL Albumin (PEP) (3.80-4.90) g/dL Mwlpi-6-Ozpohfwze (0.60-1.00) g/dL Microbiology - Last 24 Hours (Table) 01/06/22 13:11 Urine Culture - Final Urine,Voided Assessment and Plan Assessment: 1. Acute ischemic stroke right frontal parietal lobe with left hemiplegia 2. Severe left ICA stenosis 3. History of CVA 4. Diabetes mellitus 5. Hyperlipidemia 6. Former smoker 7. Urine drug screen Positive for cocaine Plan: 1. Continue with medical management 2. Carotid Doppler and CTA demonstrate left-sided severe stenosis but symptoms are from the contralateral side. No vascular surgery intervention at this time. 3. Appreciate neurology's recommendations, will follow patient outpatient to further discuss left ICA stenosis and possibly proceeding with intervention within the next 2 weeks. 4. Continue with aspirin, Brilinta, and atorvastatin 5. Copy of CTA on disk Thank you for this consultation, we will continue to follow. The impression and plan of care has been dictated as directed. Dr. Soria I performed a history and examination of this patient, discussed the same with the dictator. I agree with the dictator's note ,documented as a scribe. Any additional findings or plans will be noted.
[2022-01-08 11:30] LABS: Glucose,Whole Blood 192 mg/dL (75-99)
--- NOTE | 2022-01-08 13:01 | P.PN ---
Subjective Progress Note Date: 01/08/22 The patient is seen is seen at bedside and per nurse he seems more awake today compared to yesterday. Upon seeing him he was about the same. Objective - Vital Signs Vital signs: Vital Signs Temp 98 F 01/08/22 11:43 Pulse 53 L 01/08/22 11:43 Resp 20 01/08/22 11:43 BP 126/78 01/08/22 11:43 Pulse Ox 98 01/08/22 11:43 Intake & Output 01/07/22 01/08/22 01/08/22 18:59 06:59 18:59 Intake Total 750 200 Output Total 600 760 300 Balance 150 -760 -100 Weight 106.5 kg 103 kg Intake: IV 10 Invasive Line 1 10 Intake, IV Titration 500 200 Amount Dextrose 5% in Water 1, 500 200 000 ml @ 50 mls/hr IV . Q23H GWENDOLYN with Sodium Bicarb (1 Meq/ml) 150 ml Rx#:[id number] Oral 240 Output: Urine 600 760 300 Other: Voiding Method Indwelling Catheter Indwelling Catheter Indwelling Catheter # Bowel Movements 1 - Exam Patient does not seem in acute distress. Patient is drowsy but is briefly awakeable to voice. He correctly states his name. He could tell me place. He stated the month is March. Could not tell me year. He was able to name pen upon showing him. Could not assess language or neglect because of his condition. Cranial Nerves: He would open his eyes and no fixed-gaze noted. Could not assess visual redman or EOM. No facial weakness. No dysarthria. Motor: Gait is deferred because of cooperation. Would briefly pick-up his right upper extremity above gravity. Seems has some increased tone of bilateral uper. Sensation: Could not assess. - Labs CBC & Chem 7: 01/06/22 10:10 01/08/22 08:23 Labs: Abnormal Lab Results - Last 24 Hours (Table) 01/06/22 01/07/22 01/07/22 Range/Units 10:10 16:30 20:01 Potassium (3.5-5.1) mmol/L Carbon Dioxide (22-30) mmol/L BUN (9-20) mg/dL Creatinine (0.66-1.25) mg/dL Glucose (74-99) mg/dL POC Glucose (mg/dL) 352 H 259 H (75-99) mg/dL Calcium (8.4-10.2) mg/dL Albumin (PEP) 2.80 L (3.80-4.90) g/dL [id number]-[id number] 1.21 H (0.60-1.00) g/dL 01/08/22 01/08/22 01/08/22 Range/Units 06:04 08:23 11:29 Potassium 3.4 L (3.5-5.1) mmol/L Carbon Dioxide 21 L (22-30) mmol/L BUN 31 H (9-20) mg/dL Creatinine 2.30 H (0.66-1.25) mg/dL Glucose 258 H (74-99) mg/dL POC Glucose (mg/dL) 258 H 192 H (75-99) mg/dL Calcium 8.3 L (8.4-10.2) mg/dL Albumin (PEP) (3.80-4.90) g/dL Qjlpa-6-Etfgtcqny (0.60-1.00) g/dL Microbiology - Last 24 Hours (Table) 01/06/22 13:11 Urine Culture - Final Urine,Voided Assessment and Plan Assessment: * Acute ischemic stroke probable right MCA territory, with complete left hemiplegia. Etiology is crytogenic (appears embolic in nature) vs in addition due to cocaine use (which causes vasocontriction). * History of CVA over left hemisphere in March 2021, with residual spastic right hemiparesis * Severe stenosis of left ICA * Toxic-metabolic encephalopathy * Hypertension * Diabetes * Hyperlipidemia * Positive for cocaine use Plan: * Repeat CT head on 01/07/2022: Slightly progressive/evolving right superior frontal cortical and subcortical infarct. No gross hemorrhagic transformation, midline shift or herniation. Stable chronic cortical cortical and subcortical left frontal and parietal infarct. Bilateral basal ganglia chronic infarct. * Since he continues to have altered in mentation. Ordered routine EEG. * Patient has severe stenosis of the left ICA, but the acute symptoms are on the contralateral side. Vascular surgery input appreciated. Not a candidate for CEA this time, as the stenosis is currently on the asymptomatic side. However now with current severe left hemiplegia, the only partially functional side is the right, which needs to be preserved if possible. Therefore left CEA as an outpatient in 4-6 weeks could be considered if indicated. * Lipid panel cholesterol 262, LDL 183, HDL 50 and triglycerides 138. Lipids are poorly controlled. On Lipitor 80 mg daily. * B12 732, hemoglobin A1c 9.6, folate 6.5. Start folic acid 1 mg daily. * Continue Brilinta 90 mg twice a day. Continue aspirin 81 mg daily. * 2-D echo showed severe concentric LVH. Left ventricle systolic function is normal with EF between 55-60%. Normal left atrial size. Bubble study was performed with agitated saline. Interatrial and interventricular septum intact. No aortic stenosis. Recommend KEVIN to evaluate for embolic source per Dr. Cortés. Cardiology is consulted. Recommend patient to follow-up with computer applications instructor as outpatient and possibly consider event monitor or loop recorder because of bilateral hemispheric stroke. * Will defer the rest of medical management to primary team. * For DVT prophylaxis: On sub heparin. * Upon discharge, recommend for patient to follow-up with neurologist within 1-2 weeks as outpatient. The plan is discussed with the patient's nurse. Kel Gipson M.D. Neuro-Hospitalist. Time with Patient: Less than 30
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
[2022-01-08 14:06] LABS: C-ANCA <1:20 Titer (<1:20)
[2022-01-08] MEDS: CYCLOBENZAPRINE 10 MG TAB PO PRN (15:44)
[2022-01-08 16:34] LABS: Glucose,Whole Blood 397 mg/dL (75-99)
--- NOTE | 2022-01-08 18:21 | EEG ---
ELECTROENCEPHALOGRAM REPORT DATE OF SERVICE: 01/08/2022. CLINICAL HISTORY: This is a 71-year-old gentleman with multiple strokes who has altered mental status. The video EEG is obtained to evaluate for seizure epileptiform activity. Relevant medication: The patient is not on any antiepileptic drugs. EEG TYPE: A routine 21-channel EEG is performed with video using the 10/20 electrode placement system. DESCRIPTION: Wakefulness and drowsiness were obtained. During the awake state the posterior- dominant rhythm consisted of low to moderate voltage of 6 to 7 hertz activity that is well modulated and well sustained. There is no physiological stage II sleep architecture. There is no focal slowing seen. Interictal and ictal is none. ACTIVATION PROCEDURE: Photic stimulation and hyperventilation not performed. CLINICAL INTERPRETATION: This is an abnormal routine EEG. The background slowing is suggestive of mild encephalopathy. Otherwise there is no focal slowing, epileptiform discharges or seizure on the EEG. Clinical correlation is recommended. RA / SIOMARA: [id number] / MTDD
[2022-01-08 20:29] LABS: Glucose,Whole Blood 237 mg/dL (75-99)
[2022-01-08] MEDS: FAMOTIDINE 20 MG TAB PO SCH (21:18)
[2022-01-08] MEDS: ATORVASTATIN 80 MG TAB PO SCH (21:19)
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
[2022-01-09] MEDS: CYCLOBENZAPRINE 10 MG TAB PO PRN (02:48)
[2022-01-09] MEDS: ACETAMINOPHEN TAB 325 MG TAB PO PRN ×2 (02:48→21:07)
[2022-01-09 05:59] LABS: Glucose,Whole Blood 203 mg/dL (75-99)
[2022-01-09] MEDS: HEPARIN SODIUM,PORCINE/PF 5,000 UNIT/0.5 ML SYRINGE SQ SCH ×2 (08:54→21:04)
[2022-01-09] MEDS: QUEtiapine 25 MG TAB PO SCH ×2 (08:55→21:04)
[2022-01-09] MEDS: TICAGRELOR 90 MG TAB PO SCH ×2 (08:55→21:04)
[2022-01-09] MEDS: SODIUM BICARBONATE TAB 650 MG TAB PO SCH ×2 (08:55→21:04)
[2022-01-09] MEDS: ASPIRIN 81 MG PO SCH (08:55)
[2022-01-09] MEDS: amLODIPine 10 MG TAB PO SCH (08:55)
[2022-01-09] MEDS: hydrALAZINE HCL 25 MG TAB PO SCH (08:55)
[2022-01-09] MEDS: carvediloL 12.5 MG TAB PO SCH ×2 (08:55→16:28)
[2022-01-09] MEDS: LOSARTAN 50 MG TAB PO SCH (08:55)
[2022-01-09] MEDS: TAMSULOSIN 0.4 MG CAP.ER.24H PO SCH (08:55)
[2022-01-09] MEDS: buPROPion XL 150 MG TAB.ER.24H PO SCH (08:55)
[2022-01-09] MEDS: CLOTRIMAZOLE 1% CREAM 30 GM TUBE TOPICAL SCH ×2 (08:56→21:05)
[2022-01-09] MEDS: KETOROLAC 0.5% OPHTH DROPS 5 ML BTL RIGHT EYE SCH (08:56)
[2022-01-09] MEDS ORDERED: hydrALAZINE HCL 20 MG/ML 1 ML VIAL IVP STA (09:06)
[2022-01-09] MEDS ORDERED: LEVOFLOXACIN 750MG-D5W PMX 750 MG in DEXTROSE/WATER 1 150ML.BAG IVPB STA (09:23)
[2022-01-09] MEDS ORDERED: fentaNYL (PF) 50 MCG/ML 2 ML AMP ONE (09:29)
[2022-01-09] MEDS ORDERED: IV FLUID CONTINUATION 1,000 ML IV ONE (09:32)
--- NOTE | 2022-01-09 09:44 | P.PN ---
Subjective Progress Note Date: 01/09/22 Principal diagnosis: Carotid stenosis, CVA Patient seen as a follow-up for CVA and carotid stenosis. He underwent a repeat CT of the brain showing slightly progressive/evolving right superior frontal cortical and subcortical infarct. No gross hematologic transformation, midline shift or herniation. Yesterday he was supposed to undergo KEVIN, however that was postponed until today. He appears a little more drowsy today, however is easily arousable and answers questions appropriately. He denied any acute changes or concerns through the night. The patient did have a low-grade fever this morning of 100.5. Blood pressure 198/95 heart rate 89, oxygen level 98% on room air. Objective - Vital Signs Vital signs: Vital Signs Temp 100.5 F H 01/09/22 08:46 Pulse 89 01/09/22 08:46 Resp 17 01/09/22 08:46 BP 174/89 01/09/22 09:24 Pulse Ox 98 01/09/22 08:46 Intake & Output 01/08/22 01/09/22 01/09/22 18:59 06:59 18:59 Intake Total 450 Output Total 300 1085 Balance 150 -1085 Weight 104.5 kg Intake: IV 10 Invasive Line 2 10 Intake, IV Titration 200 Amount Dextrose 5% in Water 1, 200 000 ml @ 50 mls/hr IV . Q23H GWENDOLYN with Sodium Bicarb (1 Meq/ml) 150 ml Rx#:[id number] Oral 240 Output: Urine 300 1085 Straight 525 Other: Voiding Method Diaper Diaper Diaper Incontinent - Exam General appearance: The patient is drowsy but easily arousable, oriented to self and place, appears in no acute distress. HET: Head is normocephalic and atraumatic. Pupils are equal and reactive. Left eye with a white discharge. Neck: Supple without lymphadenopathy. Trachea midline. No audible carotid bruit. Heart: S1 S2. Regular rate and rhythm. Lungs: Normal respiratory effort. Clear to auscultation bilaterally. Abdomen: Soft, nontender, nondistended. Extremities: Normal skin color and turgor. No cyanosis, rash, ulceration, clubbing, or edema. Radial pulses +2 bilaterally Neurological: Alert and oriented 2, person and place. Appears a little more drowsy today. Left upper anterior elbow and lying on patient's chest with a washcloth in his hand. Right upper and lower extremity with weakness, unable to raise arm off bed. Grasp 3/5. Right lower extremity weakness. - Labs CBC & Chem 7: 01/06/22 10:10 01/08/22 08:23 Labs: Abnormal Lab Results - Last 24 Hours (Table) 01/08/22 01/08/22 01/08/22 Range/Units 11:29 16:33 20:28 POC Glucose (mg/dL) 192 H 397 H 237 H (75-99) mg/dL 01/09/22 Range/Units 05:57 POC Glucose (mg/dL) 203 H (75-99) mg/dL Assessment and Plan Assessment: 1. Acute/evolving ischemic stroke right frontal parietal lobe with left hemiplegia 2. Severe left ICA stenosis 3. History of CVA 4. Diabetes mellitus 5. Hyperlipidemia 6. Former smoker 7. Urine drug screen Positive for cocaine Plan: 1. Continue with medical management 2. Carotid Doppler and CTA demonstrate left-sided severe stenosis but symptoms are from the contralateral side. No vascular surgery intervention at this time. 3. Appreciate neurology's recommendations, will follow patient outpatient to further discuss left ICA stenosis and possibly proceeding with intervention within the next 2 weeks. 4. Continue with aspirin, Brilinta, and atorvastatin 5. Copy of CTA on disk Thank you for this consultation, we will continue to follow. The impression and plan of care has been dictated as directed. Dr. Montoya I performed a history and examination of this patient, discussed the same with the dictator. I agree with the dictator's note ,documented as a scribe. Any additional findings or plans will be noted.
--- NOTE | 2022-01-09 09:45 | P.PN ---
Subjective Patient is seen in follow-up for acute kidney injury on chronic kidney disease and proteinuria. Montoya catheter removed this morning. Nonoliguric. Oral intake fair. On dysphagia 2 diet. Has to be fed. No vomiting or diarrhea. Quite lethargic this morning. Not really answering much to verbal commands. Vital signs are stable. General: Awake. No acute distress. HEENT: Head exam is unremarkable. LUNGS: Breath sounds decreased. ABDOMEN: Soft, no distention. EXTREMITITES: No edema. Objective - Vital Signs Vital signs: Vital Signs Temp 100.5 F H 01/09/22 08:46 Pulse 89 01/09/22 08:46 Resp 17 01/09/22 08:46 BP 174/89 01/09/22 09:24 Pulse Ox 98 01/09/22 08:46 Intake & Output 01/08/22 01/09/22 01/09/22 18:59 06:59 18:59 Intake Total 450 Output Total 300 1085 Balance 150 -1085 Weight 104.5 kg Intake: IV 10 Invasive Line 2 10 Intake, IV Titration 200 Amount Dextrose 5% in Water 1, 200 000 ml @ 50 mls/hr IV . Q23H GWENDOLYN with Sodium Bicarb (1 Meq/ml) 150 ml Rx#:[id number] Oral 240 Output: Urine 300 1085 Straight 525 Other: Voiding Method Diaper Diaper Diaper Incontinent - Labs CBC & Chem 7: 01/06/22 10:10 01/08/22 08:23 Labs: Abnormal Lab Results - Last 24 Hours (Table) 01/08/22 01/08/22 01/08/22 Range/Units 11:29 16:33 20:28 POC Glucose (mg/dL) 192 H 397 H 237 H (75-99) mg/dL 01/09/22 Range/Units 05:57 POC Glucose (mg/dL) 203 H (75-99) mg/dL Assessment and Plan Plan: Assessment: 1. Acute kidney injury secondary to ATN secondary to hemodynamics and retent ion. Rule out GN - serologies negative. Does have history of cocaine use. Not a candidate for kidney biopsy. Diuretics held. Renal function stable. Creatinine 2.3 yesterday. No hydronephrosis noted on kidney ultrasound. 2. Chronic kidney disease stage IIIa with baseline creatinine in the range of 1.4-1.6. Etiology is diabetic kidney disease. 3. Acute ischemic CVA. Brain CT from 01/06/2022 showed evolving high right frontal parietal acute infarct. Neurology following. 4. Hypertension with chronic kidney disease. Stable. 5. Metabolic acidosis secondary to acute kidney injury. status postbicarbonate drip. On oral bicarbonate. 6. Diabetes mellitus. 7. Urinary retention. On Flomax. 8. Hypokalemia from poor intake. Magnesium normal. Replaced. Plan: KEVIN pending. Increase dose of hydralazine - hold if systolic blood pressure less than 140. Maintain IV PRN hydralazine. Avoid rapid drop in blood pressure. Continue to monitor renal function and urine output. Monitor bladder scans to make sure no urinary retention. Prognosis guarded.
[2022-01-09] MEDS ORDERED: BENZOCAINE SPRAY 1 CAN TOPICAL ONE (09:56)
[2022-01-09] MEDS ORDERED: fentaNYL (PF) 50 MCG/ML 2 ML AMP IV ONE (10:06)
[2022-01-09] MEDS ORDERED: MIDAZOLAM 2 MG/2 ML VIAL IV ONE (10:06)
[2022-01-09 10:14] LABS: Calcium 8.5 mg/dL (8.4-10.2); Potassium 4.1 mmol/L (3.5-5.1)
[2022-01-09 11:06] LABS: Glucose,Whole Blood 226 mg/dL (75-99)
--- NOTE | 2022-01-09 11:32 | XR ---
EXAMINATION TYPE: XR chest 1V portable DATE OF EXAM: 01/09/2022 COMPARISON: NONE HISTORY: Fever TECHNIQUE: Single frontal view of the chest is obtained. FINDINGS: Diffuse interstitial pattern with subsegmental basilar infiltrate. Hypertrophic and degene rative changes spine and arthropathy shoulders. Metallic foreign body be chronic overlying the left a bdomen. IMPRESSION: 1. Correlate for interstitial pneumonitis with left lower lobe pneumonia. Venous congestion also in t he differential diagnosis
[2022-01-09 11:57] LABS: Basophils # (A) 0.1 k/uL (0-0.2); Basophils % (A) 1 %; Eosinophils # (A) 0.3 k/uL (0-0.7); Eosinophils % (A) 2 %; HCT 41.1 % (39.0-53.0); HGB 12.2 gm/dL (13.0-17.5); Hypochromasia Moderate; Lymphocytes # (A) 1.2 k/uL (1.0-4.8); Lymphocytes % (A) 11 %; MCH 25.6 pg (25.0-35.0); MCHC 29.6 g/dL (31.0-37.0); MCV 86.7 fL (80.0-100.0); Mean Platelet Volume 9.2; Monocytes # (A) 0.7 k/uL (0-1.0); Monocytes % (A) 7 %; Neutrophils # (A) 8.4 k/uL (1.3-7.7); Neutrophils % (A) 78 %; Platelet Count 232 k/uL (150-450); RBC 4.74 m/uL (4.30-5.90); RDW 14.3 % (11.5-15.5); WBC 10.8 k/uL (3.8-10.6)
[2022-01-09] MEDS: INSULIN DETEMIR (LEVEMIR) 100 UNIT/ML SYR SQ SCH ×2 (12:41→17:51)
[2022-01-09] MEDS: INSULIN ASPART (NovoLOG) 100 UNIT/ML VIAL SQ SCH ×4 (12:45→21:05)
--- NOTE | 2022-01-09 12:59 | P.TEE ---
Description of Procedure(s): Procedure performed: Transesophageal Echocardiogram with color flow doppler, pulsed wave doppler and continuous wave doppler, moderate conscious sedation Moderate conscious sedation: Moderate conscious sedation was supplied with direct supervision of myself using Versed and Fentanyl. Complications: none Indications: Cryptogenic stroke PROCEDURE: After the risks, benefits and alternatives of the above mentioned procedure was explained in detail with the patient, informed consent was obtained. Patient was brought to the lab in a fasting state. Patient was given IV Versed and Fentanyl for sedation. The throat was sprayed with Hurricane to anesthetize the throat. A lubricated Omni probe was then introduced into the es ophagus and stomach and multiple views were obtained. 2D echo with color flow doppler, pulsed wave doppler and continuous wave doppler was utilized. Agitated saline bubbles were injected to assess for any intra-atrial shunt. The probe was then removed. Patient tolerated the procedure well. Patient was transferred to the post procedure area in stable and satisfactory condition. FINDINGS: 1. The aortic valve is tricuspid and function normally. 2. The mitral valve appears be normal with trace mitral regurgitation. 3. Tricuspid valve appears to be normal without significant tricuspid regurgitation. 4. The interatrial septum is intact. No evidence of PFO. 5. Left atrial appendage is free of clot. 6. Left ventricular size and function appears to be normal with left ventricular ejection fraction 55-60%.
--- NOTE | 2022-01-09 15:03 | P.PN ---
Subjective Progress Note Date: 01/09/22 The patient is seen at bedside and had KEVIN today. It is reported as Interatrial septum is intact. No evidence of PFO. Left atrial appendage is free of clot. EF 50-60% Objective - Vital Signs Vital signs: Vital Signs Temp 97.6 F 01/09/22 12:30 Pulse 80 01/09/22 12:30 Resp 17 01/09/22 12:30 BP 140/72 01/09/22 12:30 Pulse Ox 98 01/09/22 12:30 Intake & Output 01/08/22 01/09/22 01/09/22 18:59 06:59 18:59 Intake Total 450 220 Output Total 300 1085 400 Balance 150 -1085 -180 Weight 104.5 kg Intake: IV 10 100 Invasive Line 2 10 Intake, IV Titration 200 Amount Dextrose 5% in Water 1, 200 000 ml @ 50 mls/hr IV . Q23H GWENDOLYN with Sodium Bicarb (1 Meq/ml) 150 ml Rx#:[id number] Oral 240 120 Output: Urine 300 1085 400 Straight 525 400 Other: Voiding Method Diaper Diaper Diaper Incontinent # Voids 1 - Exam Patient does not seem in acute distress. Patient is drowsy but is briefly awakeable to voice. He correctly states his name. He could tell me place. He stated the month is March. Could not tell me year. He was able to name pen upon showing him. Could not assess language or neglect because of his condition. Cranial Nerves: He would open his eyes and no fixed-gaze noted. Could not assess visual redman or EOM. No facial weakness. No dysarthria. Motor: Gait is deferred because of cooperation. Would briefly pick-up his right upper extremity above gravity. Seems has some increased tone of bilateral uper. Sensation: Could not assess. WORK-UP: Lipid panel cholesterol 262, LDL 183, HDL 50 and triglycerides 138. Lipids are poorly controlled. B12 732, hemoglobin A1c 9.6, folate 6.5. Repeat CT head on 01/07/2022: Slightly progressive/evolving right superior frontal cortical and subcortical infarct. No gross hemorrhagic transformation, midline shift or herniation. Stable chronic cortical cortical and subcortical left frontal and parietal infarct. Bilateral basal ganglia chronic infarct. 2-D echo showed severe concentric LVH. Left ventricle systolic function is normal with EF between 55-60%. Normal left atrial size. Bubble study was performed with agitated saline. Interatrial and interventricular septum intact. No aortic stenosis. KEVIN today. It is reported as Interatrial septum is intact. No evidence of PFO. Left atrial appendage is free of clot. EF 50-60% Routine EEG on 01/08/2022: Abnormal routine EEG. The background slowing is suggestive of mild encephalopathy. Otherwise no focal slowing, epileptiform dis charges or seizure on the EEG. - Labs CBC & Chem 7: 01/09/22 11:43 01/09/22 09:19 Labs: Abnormal Lab Results - Last 24 Hours (Table) 01/08/22 01/08/22 01/09/22 Range/Units 16:33 20:28 05:57 WBC (3.8-10.6) k/uL Hgb (13.0-17.5) gm/dL MCHC (31.0-37.0) g/dL Neutrophils # (1.3-7.7) k/uL Sodium (137-145) mmol/L Carbon Dioxide (22-30) mmol/L BUN (9-20) mg/dL Creatinine (0.66-1.25) mg/dL Glucose (74-99) mg/dL POC Glucose (mg/dL) 397 H 237 H 203 H (75-99) mg/dL 01/09/22 01/09/22 01/09/22 Range/Units 09:19 11:04 11:43 WBC 10.8 H (3.8-10.6) k/uL Hgb 12.2 L (13.0-17.5) gm/dL MCHC 29.6 L (31.0-37.0) g/dL Neutrophils # 8.4 H (1.3-7.7) k/uL Sodium 134 L (137-145) mmol/L Carbon Dioxide 19 L (22-30) mmol/L BUN 36 H (9-20) mg/dL Creatinine 2.38 H (0.66-1.25) mg/dL Glucose 208 H (74-99) mg/dL POC Glucose (mg/dL) 226 H (75-99) mg/dL Assessment and Plan Assessment: * Acute ischemic stroke probable right MCA territory, with complete left hemiplegia. Etiology is crytogenic (appears embolic in nature) vs in addition due to cocaine use (which causes vasocontriction). * History of CVA over left hemisphere in March 2021, with residual spastic right hemiparesis * Severe stenosis of left ICA * Toxic-metabolic encephalopathy * Hypertension * Diabetes * Hyperlipidemia * Positive for cocaine use Plan: * Repeat CT head on 01/07/2022: Slightly progressive/evolving right superior frontal cortical and subcortical infarct. No gross hemorrhagic transformation, midline shift or herniation. Stable chronic cortical cortical and subcortical left frontal and parietal infarct. Bilateral basal ganglia chronic infarct. * KEVIN today. It is reported as Interatrial septum is intact. No evidence of PFO. Left atrial appendage is free of clot. EF 50-60% * Routine EEG on 01/08/2022: Abnormal routine EEG. The background slowing is suggestive of mild encephalopathy. Otherwise no focal slowing, epileptiform discharges or seizure on the EEG. * Patient has severe stenosis of the left ICA, but the acute symptoms are on the contralateral side. Vascular surgery input appreciated. Not a candidate for CEA this time, as the stenosis is currently on the asymptomatic side. However now with current severe left hemiplegia, the only partially functional side is the right, which needs to be preserved if possible. Therefore left CEA as an outpatient in 4-6 weeks could be considered if indicated. * Continue Lipitor 80 mg daily. * B12 732, hemoglobin A1c 9.6, folate 6.5. Start folic acid 1 mg daily. * Continue Brilinta 90 mg twice a day. Continue aspirin 81 mg daily. * Will defer the rest of medical management to primary team. * For DVT prophylaxis: On sub heparin. * Upon discharge, recommend for patient to follow-up with neurologist within 1-2 weeks as outpatient. I feel patient will benefit from rehab. The plan is discussed with the patient's nurse. Kel Gipson M.D. Neuro-Hospitalist. Time with Patient: Less than 30
[2022-01-09] MEDS: hydrALAZINE HCL 50 MG TAB PO SCH ×2 (16:28→21:04)
[2022-01-09 16:48] LABS: Glucose,Whole Blood 463 mg/dL (75-99)
[2022-01-09 18:57] LABS: Glucose,Whole Blood 342 mg/dL (75-99)
[2022-01-09] MEDS: ATORVASTATIN 80 MG TAB PO SCH (21:04)
[2022-01-09] MEDS: FAMOTIDINE 20 MG TAB PO SCH (21:04)
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
[2022-01-10 06:03] LABS: Glucose,Whole Blood 102 mg/dL (75-99)
[2022-01-10] MEDS: INSULIN DETEMIR (LEVEMIR) 100 UNIT/ML SYR SQ SCH (06:43)
[2022-01-10] MEDS: carvediloL 12.5 MG TAB PO SCH ×2 (06:43→16:18)
[2022-01-10] MEDS: INSULIN ASPART (NovoLOG) 100 UNIT/ML VIAL SQ SCH ×4 (06:45→21:01)
[2022-01-10 08:29] LABS: Calcium 8.7 mg/dL (8.4-10.2)
[2022-01-10 08:42] LABS: Magnesium 2.2 mg/dL (1.6-2.3)
[2022-01-10 08:50] LABS: Potassium 4.7 mmol/L (3.5-5.1)
--- NOTE | 2022-01-10 09:52 | P.PN ---
Subjective Patient is seen in follow-up for acute kidney injury on chronic kidney disease and proteinuria. Montoya catheter had to be reinserted due to persistent urinary retention. Nonoliguric. Oral intake fair. On dysphagia 2 diet. Has to be fed. No vomiting or diarrhea. No significant change in mentation. Renal function worse today. Creatinine 2.6. Blood pressure 130s to 150s systolic over 70s to 80s diastolic. Vital signs are stable. General: Awake. No acute distress. HEENT: Head exam is unremarkable. LUNGS: Breath sounds decreased. ABDOMEN: Soft, no distention. EXTREMITITES: No edema. Objective - Vital Signs Vital signs: Vital Signs Temp 98.8 F 01/10/22 02:56 Pulse 77 01/10/22 02:56 Resp 18 01/10/22 02:56 BP 154/77 01/10/22 02:56 Pulse Ox 98 01/10/22 02:56 Intake & Output 01/09/22 01/10/22 01/10/22 18:59 06:59 18:59 Intake Total 760 Output Total 850 1550 Balance -90 -1550 Intake: IV 100 Oral 660 Output: Urine 850 1550 Straight 400 Uretheral (Montoya) 450 500 Other: Voiding Method Diaper Indwelling Catheter Indwelling Catheter # Voids 1 - Labs CBC & Chem 7: 01/09/22 11:43 01/10/22 07:59 Labs: Abnormal Lab Results - Last 24 Hours (Table) 01/09/22 01/09/22 01/09/22 Range/Units 09:19 11:04 11:43 WBC (3.8-10.6) k/uL Hgb (13.0-17.5) gm/dL MCHC (31.0-37.0) g/dL Neutrophils # (1.3-7.7) k/uL Sodium 134 L (137-145) mmol/L Carbon Dioxide 19 L (22-30) mmol/L BUN 36 H (9-20) mg/dL Creatinine 2.38 H (0.66-1.25) mg/dL Glucose 208 H (74-99) mg/dL POC Glucose (mg/dL) 226 H (75-99) mg/dL Procalcitonin 0.50 H (0.02-0.09) ng/mL 01/09/22 01/09/22 01/09/22 Range/Units 11:43 16:46 18:55 WBC 10.8 H (3.8-10.6) k/uL Hgb 12.2 L (13.0-17.5) gm/dL MCHC 29.6 L (31.0-37.0) g/dL Neutrophils # 8.4 H (1.3-7.7) k/uL Sodium (137-145) mmol/L Carbon Dioxide (22-30) mmol/L BUN (9-20) mg/dL Creatinine (0.66-1.25) mg/dL Glucose (74-99) mg/dL POC Glucose (mg/dL) 463 H 342 H (75-99) mg/dL Procalcitonin (0.02-0.09) ng/mL 01/10/22 01/10/22 Range/Units 06:00 07:59 WBC (3.8-10.6) k/uL Hgb (13.0-17.5) gm/dL MCHC (31.0-37.0) g/dL Neutrophils # (1.3-7.7) k/uL Sodium 132 L (137-145) mmol/L Carbon Dioxide 20 L (22-30) mmol/L BUN 44 H (9-20) mg/dL Creatinine 2.60 H (0.66-1.25) mg/dL Glucose 136 H (74-99) mg/dL POC Glucose (mg/dL) 102 H (75-99) mg/dL Procalcitonin (0.02-0.09) ng/mL Assessment and Plan Plan: Assessment: 1. Acute kidney injury secondary to ATN secondary to hemodynamics and retention. Rule out GN - serologies negative. Does have history of cocaine use. Not a candidate for kidney biopsy. Diuretics held. Renal function worse today. Creatinine 2.6. No hydronephrosis noted on kidney ultrasound. 2. Chronic kidney disease stage IIIa with baseline creatinine in the range of 1.4-1.6. Etiology is diabetic kidney disease. 3. Acute ischemic CVA. Brain CT from 01/06/2022 showed evolving high right frontal parietal acute infarct. Neurology following. No vegetation noted on KEVIN. Ejection fraction preserved. 4. Hypertension with chronic kidney disease. Stable. 5. Metabolic acidosis secondary to acute kidney injury. Status post bicarbonate drip. On oral bicarbonate. 6. Diabetes mellitus. 7. Urinary retention. On Flomax. Montoya catheter reinserted 01/09/2022. 8. Hypokalemia from poor intake. Magnesium normal. Replaced. Resolved. Plan: Encourage oral intake. Avoid nephrotoxins. Continue losartan for now as blood pressure is controlled. Continue to monitor renal function and urine output. Prognosis guarded.
--- NOTE | 2022-01-10 10:12 | P.PN ---
Subjective Progress Note Date: 01/10/22 Principal diagnosis: Carotid stenosis, CVA Patient seen as a follow-up for CVA and carotid stenosis. He underwent a repeat CT of the brain showing slightly progressive/evolving right superior frontal cortical and subcortical infarct. No gross hematologic transformation, midline shift or herniation. Yesterday he went KEVIN was findings of aortic valve is tricuspid and functioning normally, mitral valve appears normal with trace mitral regurgitation, inter-atrial septum intact no evidence of PFO, left atrial appendage free of clot, left ventricular size and function appear to be normal with EF 55-60%. Patient again had low-grade temp 100.6. He had a chest x-ray yesterday showing interstitial pneumonitis with left lower lobe pneumonia. Venous congestion also in the differential diagnosis. Patient was given a dose of levofloxacin. Objective - Vital Signs Vital signs: Vital Signs Temp 98.8 F 01/10/22 02:56 Pulse 77 01/10/22 02:56 Resp 18 01/10/22 02:56 BP 154/77 01/10/22 02:56 Pulse Ox 98 01/10/22 02:56 Intake & Output 01/09/22 01/10/22 01/10/22 18:59 06:59 18:59 Intake Total 760 Output Total 850 1550 Balance -90 -1550 Intake: IV 100 Oral 660 Output: Urine 850 1550 Straight 400 Uretheral (Montoya) 450 500 Other: Voiding Method Diaper Indwelling Catheter Indwelling Catheter # Voids 1 - Exam General appearance: The patient is drowsy but easily arousable, oriented to self and place, appears in no acute distress. HET: Head is normocephalic and atraumatic. Pupils are equal and reactive. Left eye with a white discharge. Neck: Supple without lymphadenopathy. Trachea midline. No audible carotid bruit. Heart: S1 S2. Regular rate and rhythm. Lungs: Normal respiratory effort. Clear to auscultation bilaterally. Abdomen: Soft, nontender, nondistended. Extremities: Normal skin color and turgor. No cyanosis, rash, ulceration, clubbing, or edema. Radial pulses +2 bilaterally Neurological: Alert and oriented 2, person and place. Lethargic, but arousable. Left elbow bent and lying on patient's chest with a washcloth in his hand, still unable to move left upper or lower extremity. Right upper and lower extremity with weakness, unable to raise arm off bed. Grasp 2/5. Right lower extremity weakness. - Labs CBC & Chem 7: 01/09/22 11:43 01/10/22 07:59 Labs: Abnormal Lab Results - Last 24 Hours (Table) 01/09/22 01/09/22 01/09/22 Range/Units 09:19 11:04 11:43 WBC (3.8-10.6) k/uL Hgb (13.0-17.5) gm/dL MCHC (31.0-37.0) g/dL Neutrophils # (1.3-7.7) k/uL Sodium 134 L (137-145) mmol/L Carbon Dioxide 19 L (22-30) mmol/L BUN 36 H (9-20) mg/dL Creatinine 2.38 H (0.66-1.25) mg/dL Glucose 208 H (74-99) mg/dL POC Glucose (mg/dL) 226 H (75-99) mg/dL Procalcitonin 0.50 H (0.02-0.09) ng/mL 01/09/22 01/09/22 01/09/22 Range/Units 11:43 16:46 18:55 WBC 10.8 H (3.8-10.6) k/uL Hgb 12.2 L (13.0-17.5) gm/dL MCHC 29.6 L (31.0-37.0) g/dL Neutrophils # 8.4 H (1.3-7.7) k/uL Sodium (137-145) mmol/L Carbon Dioxide (22-30) mmol/L BUN (9-20) mg/dL Creatinine (0.66-1.25) mg/dL Glucose (74-99) mg/dL POC Glucose (mg/dL) 463 H 342 H (75-99) mg/dL Procalcitonin (0.02-0.09) ng/mL 01/10/22 01/10/22 Range/Units 06:00 07:59 WBC (3.8-10.6) k/uL Hgb (13.0-17.5) gm/dL MCHC (31.0-37.0) g/dL Neutrophils # (1.3-7.7) k/uL Sodium 132 L (137-145) mmol/L Carbon Dioxide 20 L (22-30) mmol/L BUN 44 H (9-20) mg/dL Creatinine 2.60 H (0.66-1.25) mg/dL Glucose 136 H (74-99) mg/dL POC Glucose (mg/dL) 102 H (75-99) mg/dL Procalcitonin (0.02-0.09) ng/mL Assessment and Plan Assessment: 1. Acute/evolving ischemic stroke right frontal parietal lobe with left hemiplegia. Neurology believes etiology is embolic in nature vs./in addition due to cocaine use from vasoconstriction 2. Severe left ICA stenosis 3. History of CVA 4. Diabetes mellitus 5. Hyperlipidemia 6. Former smoker 7. Urine drug screen Positive for cocaine Plan: 1. Continue with medical management 2. Carotid Doppler and CTA demonstrate left-sided severe stenosis but symptoms are from the contralateral side. No vascular surgery intervention at this time. 3. Appreciate neurology's recommendations, will follow patient outpatient to further discuss left ICA stenosis and possibly proceeding with intervention within the next couple of weeks to help preserve use of right side 4. Continue with aspirin, Brilinta, and atorvastatin 5. Copy of CTA on disk 6. OT/PT Thank you for this consultation, we will continue to follow. The impression and plan of care has been dictated as directed. Dr. Bonilla I performed a history and examination of this patient, discussed the same with the dictator. I agree with the dictator's note ,documented as a scribe. Any additional findings or plans will be noted.
[2022-01-10] MEDS: HEPARIN SODIUM,PORCINE/PF 5,000 UNIT/0.5 ML SYRINGE SQ SCH ×2 (10:17→21:01)
[2022-01-10] MEDS: hydrALAZINE HCL 50 MG TAB PO SCH ×3 (10:18→21:00)
[2022-01-10] MEDS: TICAGRELOR 90 MG TAB PO SCH ×2 (10:18→21:00)
[2022-01-10] MEDS: LOSARTAN 50 MG TAB PO SCH (10:18)
[2022-01-10] MEDS: TAMSULOSIN 0.4 MG CAP.ER.24H PO SCH (10:18)
[2022-01-10] MEDS: QUEtiapine 25 MG TAB PO SCH ×2 (10:18→21:00)
[2022-01-10] MEDS: buPROPion XL 150 MG TAB.ER.24H PO SCH (10:18)
[2022-01-10] MEDS: amLODIPine 10 MG TAB PO SCH (10:18)
[2022-01-10] MEDS: ASPIRIN 81 MG PO SCH (10:19)
[2022-01-10] MEDS: CLOTRIMAZOLE 1% CREAM 30 GM TUBE TOPICAL SCH ×2 (10:19→21:01)
[2022-01-10] MEDS: SODIUM BICARBONATE TAB 650 MG TAB PO SCH ×2 (10:19→21:00)
[2022-01-10] MEDS: KETOROLAC 0.5% OPHTH DROPS 5 ML BTL RIGHT EYE SCH (10:19)
[2022-01-10 11:42] LABS: Basophils % (A) 0 %; Eosinophils # (A) 0.2 k/uL (0-0.7); Eosinophils % (A) 2 %; HCT 36.5 % (39.0-53.0); HGB 11.2 gm/dL (13.0-17.5); Hypochromasia Slight; Lymphocytes # (A) 1.2 k/uL (1.0-4.8); Lymphocytes % (A) 13 %; MCH 26.1 pg (25.0-35.0); MCHC 30.5 g/dL (31.0-37.0); MCV 85.6 fL (80.0-100.0); Mean Platelet Volume 9.3; Monocytes # (A) 0.8 k/uL (0-1.0); Monocytes % (A) 8 %; Neutrophils % (A) 74 %; Platelet Count 261 k/uL (150-450); RBC 4.27 m/uL (4.30-5.90); RDW 14.3 % (11.5-15.5); WBC 9.5 k/uL (3.8-10.6)
[2022-01-10 11:55] LABS: Glucose,Whole Blood 150 mg/dL (75-99)
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
--- NOTE | 2022-01-10 15:33 | P.PN ---
Subjective Progress Note Date: 01/10/22 The patient is seen at bedside and he feels doing better. Objective - Vital Signs Vital signs: Vital Signs Temp 99.6 F 01/10/22 12:48 Pulse 79 01/10/22 12:48 Resp 17 01/10/22 12:48 BP 162/70 01/10/22 12:48 Pulse Ox 94 L 01/10/22 12:48 Intake & Output 01/09/22 01/10/22 01/10/22 18:59 06:59 18:59 Intake Total 760 Output Total 850 1550 Balance -90 -1550 Intake: IV 100 Oral 660 Output: Urine 850 1550 Straight 400 Uretheral (Montoya) 450 500 Other: Voiding Method Diaper Indwelling Catheter Indwelling Catheter # Voids 1 - Exam Patient does not seem in acute distress. Patient is drowsy but is more awake today compared to the past three days seeing him. He correctly states his name and time. He could tell me place. He is following few simple commands. Cranial Nerves: He would open his eyes and no fixed-gaze noted. Could not assess visual redman or EOM. No facial weakness. No dysarthria. Motor: Gait is deferred because of cooperation. Would briefly pick-up his right upper extremity above gravity. Seems has some increased tone of bilateral upper (left > right). Sensation: Could not assess. WORK-UP: Lipid panel cholesterol 262, LDL 183, HDL 50 and triglycerides 138. Lipids are poorly controlled. B12 732, hemoglobin A1c 9.6, folate 6.5. Repeat CT head on 01/07/2022: Slightly progressive/evolving right superior frontal cortical and subcortical infarct. No gross hemorrhagic transformation, midline shift or herniation. Stable chronic cortical cortical and subcortical left frontal and parietal infarct. Bilateral basal ganglia chronic infarct. 2-D echo showed severe concentric LVH. Left ventricle systolic function is normal with EF between 55-60%. Normal left atrial size. Bubble study was performed with agitated saline. Interatrial and interventricular septum intact. No aortic stenosis. KEVIN today. It is reported as Interatrial septum is intact. No evidence of PFO. Left atrial appendage is free of clot. EF 50-60% Routine EEG on 01/08/2022: Abnormal routine EEG. The background slowing is suggestive of mild encephalopathy. Otherwise no focal slowing, epileptiform d ischarges or seizure on the EEG. - Labs CBC & Chem 7: 01/10/22 10:55 01/10/22 07:59 Labs: Abnormal Lab Results - Last 24 Hours (Table) 01/09/22 01/09/22 01/09/22 Range/Units 11:43 16:46 18:55 RBC (4.30-5.90) m/uL Hgb (13.0-17.5) gm/dL Hct (39.0-53.0) % MCHC (31.0-37.0) g/dL Sodium (137-145) mmol/L Carbon Dioxide (22-30) mmol/L BUN (9-20) mg/dL Creatinine (0.66-1.25) mg/dL Glucose (74-99) mg/dL POC Glucose (mg/dL) 463 H 342 H (75-99) mg/dL Procalcitonin 0.50 H (0.02-0.09) ng/mL 01/10/22 01/10/22 01/10/22 Range/Units 06:00 07:59 10:55 RBC 4.27 L (4.30-5.90) m/uL Hgb 11.2 L (13.0-17.5) gm/dL Hct 36.5 L (39.0-53.0) % MCHC 30.5 L (31.0-37.0) g/dL Sodium 132 L (137-145) mmol/L Carbon Dioxide 20 L (22-30) mmol/L BUN 44 H (9-20) mg/dL Creatinine 2.60 H (0.66-1.25) mg/dL Glucose 136 H (74-99) mg/dL POC Glucose (mg/dL) 102 H (75-99) mg/dL Procalcitonin (0.02-0.09) ng/mL 01/10/22 Range/Units 11:52 RBC (4.30-5.90) m/uL Hgb (13.0-17.5) gm/dL Hct (39.0-53.0) % MCHC (31.0-37.0) g/dL Sodium (137-145) mmol/L Carbon Dioxide (22-30) mmol/L BUN (9-20) mg/dL Creatinine (0.66-1.25) mg/dL Glucose (74-99) mg/dL POC Glucose (mg/dL) 150 H (75-99) mg/dL Procalcitonin (0.02-0.09) ng/mL Assessment and Plan Assessment: * Acute ischemic stroke probable right MCA territory, with complete left hemiplegia. Etiology is crytogenic (appears embolic in nature) vs in addition due to cocaine use (which causes vasocontriction). * History of CVA over left hemisphere in March 2021, with residual spastic right hemiparesis * Severe stenosis of left ICA * Toxic-metabolic encephalopathy * Hypertension * Diabetes * Hyperlipidemia * Positive for cocaine use Plan: * Repeat CT head on 01/07/2022: Slightly progressive/evolving right superior frontal cortical and subcortical infarct. No gross hemorrhagic transformation, midline shift or herniation. Stable chronic cortical cortical and subcortical left frontal and parietal infarct. Bilateral basal ganglia chronic infarct. * KEVIN today. It is reported as Interatrial septum is intact. No evidence of PFO. Left atrial appendage is free of clot. EF 50-60% * Routine EEG on 01/08/2022: Abnormal routine EEG. The background slowing is suggestive of mild encephalopathy. Otherwise no focal slowing, epileptiform discharges or seizure on the EEG. * Patient has severe stenosis of the left ICA, but the acute symptoms are on the contralateral side. Vascular surgery input appreciated. Not a candidate for CEA this time, as the stenosis is currently on the asymptomatic side. However now with current severe left hemiplegia, the only partially functional side is the right, which needs to be preserved if possible. Therefore left CEA as an outpatient in 4-6 weeks could be considered if indicated. * Continue Lipitor 80 mg daily. * B12 732, hemoglobin A1c 9.6, folate 6.5. Start folic acid 1 mg daily. * Continue Brilinta 90 mg twice a day. Continue aspirin 81 mg daily. * Will defer the rest of medical management to primary team. * For DVT prophylaxis: On sub heparin. * Upon discharge, recommend for patient to follow-up with neurologist within 1-2 weeks as outpatient. No further neurological work-up. I feel patient will benefit from rehab. The plan is discussed with the patient's nurse. Kel Gipson M.D. Neuro-Hospitalist. Time with Patient: Less than 30
[2022-01-10 17:08] LABS: Glucose,Whole Blood 192 mg/dL (75-99)
[2022-01-10] MEDS: CYCLOBENZAPRINE 10 MG TAB PO PRN (17:53)
[2022-01-10 20:26] LABS: Glucose,Whole Blood 231 mg/dL (75-99)
[2022-01-10] MEDS: FAMOTIDINE 20 MG TAB PO SCH (21:00)
[2022-01-10] MEDS: ATORVASTATIN 80 MG TAB PO SCH (21:00)
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
[2022-01-11] MEDS: hydrALAZINE HCL 20 MG/ML 1 ML VIAL IVP PRN (04:59)
[2022-01-11] MEDS: carvediloL 12.5 MG TAB PO SCH (04:59)
[2022-01-11 06:06] LABS: Glucose,Whole Blood 94 mg/dL (75-99)
[2022-01-11] MEDS: INSULIN ASPART (NovoLOG) 100 UNIT/ML VIAL SQ SCH ×3 (06:12→17:18)
[2022-01-11] MEDS: INSULIN DETEMIR (LEVEMIR) 100 UNIT/ML SYR SQ SCH (06:14)
[2022-01-11] MEDS: hydrALAZINE HCL 50 MG TAB PO SCH ×2 (08:05→17:18)
[2022-01-11] MEDS: ASPIRIN 81 MG PO SCH (08:05)
[2022-01-11] MEDS: HEPARIN SODIUM,PORCINE/PF 5,000 UNIT/0.5 ML SYRINGE SQ SCH (08:05)
[2022-01-11] MEDS: LOSARTAN 50 MG TAB PO SCH (08:06)
[2022-01-11] MEDS: TAMSULOSIN 0.4 MG CAP.ER.24H PO SCH (08:06)
[2022-01-11] MEDS: TICAGRELOR 90 MG TAB PO SCH (08:06)
[2022-01-11] MEDS: buPROPion XL 150 MG TAB.ER.24H PO SCH (08:06)
[2022-01-11] MEDS: SODIUM BICARBONATE TAB 650 MG TAB PO SCH (08:06)
[2022-01-11] MEDS: QUEtiapine 25 MG TAB PO SCH (08:06)
[2022-01-11] MEDS: amLODIPine 10 MG TAB PO SCH (08:06)
[2022-01-11] MEDS: KETOROLAC 0.5% OPHTH DROPS 5 ML BTL RIGHT EYE SCH (08:29)
[2022-01-11] MEDS: CLOTRIMAZOLE 1% CREAM 30 GM TUBE TOPICAL SCH (08:30)
[2022-01-11 09:32] LABS: Calcium 8.7 mg/dL (8.4-10.2); Magnesium 2.3 mg/dL (1.6-2.3); Potassium 4.5 mmol/L (3.5-5.1)
--- NOTE | 2022-01-11 10:36 | P.PN ---
Subjective Patient is seen in follow-up for acute kidney injury on chronic kidney disease and proteinuria. Montoya catheter had to be reinserted due to persistent urinary retention. Nonoliguric. Oral intake fair. On dysphagia 2 diet. Has to be fed. No vomiting or diarrhea. No significant change in mentation. Creatinine 2.76 today. Vital signs are stable. General: Awake. No acute distress. HEENT: Head exam is unremarkable. LUNGS: Breath sounds decreased. ABDOMEN: Soft, no distention. EXTREMITITES: No edema. Objective - Vital Signs Vital signs: Vital Signs Temp 99.4 F 01/11/22 08:04 Pulse 94 01/11/22 08:04 Resp 18 01/11/22 08:04 BP 166/75 01/11/22 08:04 Pulse Ox 94 L 01/11/22 08:04 Intake & Output 01/10/22 01/11/22 01/11/22 18:59 06:59 18:59 Intake Total 120 120 Output Total 700 750 Balance -580 -750 120 Weight 109.5 kg Intake: Oral 120 120 Output: Urine 700 750 Other: Voiding Method Indwelling Catheter Indwelling Catheter Indwelling Catheter - Labs CBC & Chem 7: 01/10/22 10:55 01/11/22 08:40 Labs: Abnormal Lab Results - Last 24 Hours (Table) 01/10/22 01/10/22 01/10/22 Range/Units 10:55 11:52 17:06 RBC 4.27 L (4.30-5.90) m/uL Hgb 11.2 L (13.0-17.5) gm/dL Hct 36.5 L (39.0-53.0) % MCHC 30.5 L (31.0-37.0) g/dL Sodium (137-145) mmol/L Carbon Dioxide (22-30) mmol/L BUN (9-20) mg/dL Creatinine (0.66-1.25) mg/dL Glucose (74-99) mg/dL POC Glucose (mg/dL) 150 H 192 H (75-99) mg/dL 01/10/22 01/11/22 Range/Units 20:24 08:40 RBC (4.30-5.90) m/uL Hgb (13.0-17.5) gm/dL Hct (39.0-53.0) % MCHC (31.0-37.0) g/dL Sodium 132 L (137-145) mmol/L Carbon Dioxide 18 L (22-30) mmol/L BUN 54 H (9-20) mg/dL Creatinine 2.76 H (0.66-1.25) mg/dL Glucose 255 H (74-99) mg/dL POC Glucose (mg/dL) 231 H (75-99) mg/dL Assessment and Plan Plan: Assessment: 1. Acute kidney injury secondary to ATN secondary to hemodynamics and retention. Rule out GN - serologies negative. Does have history of cocaine use. Not a candidate for kidney biopsy. Diuretics held. Creatinine 2.76 today. No hydronephrosis noted on kidney ultrasound. 2. Chronic kidney disease stage IIIa with baseline creatinine in the range of 1.4-1.6. Etiology is diabetic kidney disease. 3. Acute ischemic CVA. Brain CT from 01/06/2022 showed evolving high right frontal parietal acute infarct. Neurology following. No vegetation noted on KEVIN. Ejection fraction preserved. 4. Hypertension with chronic kidney disease. 5. Metabolic acidosis secondary to acute kidney injury. Status post bicarbonate drip. On oral bicarbonate. 6. Diabetes mellitus. 7. Urinary retention. On Flomax. Montoya catheter reinserted 01/09/2022. 8. Hypokalemia from poor intake. Magnesium normal. Replaced. Resolved. Plan: Encouraged oral intake. Avoid nephrotoxins. Continue losartan for now as blood pressure is on the higher side and potassium normal. Increase dose of Coreg. Continue to monitor renal function and urine output. Increase bicarbonate frequency to 3 times a day. Prognosis guarded.
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
[2022-01-11 11:33] LABS: Glucose,Whole Blood 258 mg/dL (75-99)
--- NOTE | 2022-01-11 13:39 | P.PN ---
Subjective Progress Note Date: 01/11/22 The patient is seen at bedside and per his nurse he is about the same from neurological perspective. Patient was sleeping upon seeing him but upon waking him he felt ok. Objective - Vital Signs Vital signs: Vital Signs Temp 98.6 F 01/11/22 12:31 Pulse 85 01/11/22 12:31 Resp 15 01/11/22 12:31 BP 158/69 01/11/22 12:31 Pulse Ox 98 01/11/22 12:31 Intake & Output 01/10/22 01/11/22 01/11/22 18:59 06:59 18:59 Intake Total 120 120 Output Total 700 750 600 Balance -580 -750 -480 Weight 109.5 kg Intake: Oral 120 120 Output: Urine 700 750 600 Other: Voiding Method Indwelling Catheter Indwelling Catheter Indwelling Catheter - Exam Patient does not seem in acute distress. Patient is drowsy but is more awake today compared to the past three days seeing him. He correctly states his name and time. He could tell me place. He is following few simple commands. Cranial Nerves: He would open his eyes and no fixed-gaze noted. Could not as sess visual redman or EOM. No facial weakness. No dysarthria. Motor: Gait is deferred because of cooperation. Would briefly pick-up his right upper extremity above gravity. Seems has some increased tone of bilateral upper (left > right). Sensation: Could not assess. WORK-UP: Lipid panel cholesterol 262, LDL 183, HDL 50 and triglycerides 138. Lipids are poorly controlled. B12 732, hemoglobin A1c 9.6, folate 6.5. Repeat CT head on 01/07/2022: Slightly progressive/evolving right superior frontal cortical and subcortical infarct. No gross hemorrhagic transformation, midline shift or herniation. Stable chronic cortical cortical and subcortical left frontal and parietal infarct. Bilateral basal ganglia chronic infarct. 2-D echo showed severe concentric LVH. Left ventricle systolic function is normal with EF between 55-60%. Normal left atrial size. Bubble study was performed with agitated saline. Interatrial and interventricular septum intact. No aortic stenosis. KEVIN today. It is reported as Interatrial septum is intact. No evidence of PFO. Left atrial appendage is free of clot. EF 50-60% Routine EEG on 01/08/2022: Abnormal routine EEG. The background slowing is sug gestive of mild encephalopathy. Otherwise no focal slowing, epileptiform discharges or seizure on the EEG. - Labs CBC & Chem 7: 01/10/22 10:55 01/11/22 08:40 Labs: Abnormal Lab Results - Last 24 Hours (Table) 01/10/22 01/10/22 01/11/22 Range/Units 17:06 20:24 08:40 Sodium 132 L (137-145) mmol/L Carbon Dioxide 18 L (22-30) mmol/L BUN 54 H (9-20) mg/dL Creatinine 2.76 H (0.66-1.25) mg/dL Glucose 255 H (74-99) mg/dL POC Glucose (mg/dL) 192 H 231 H (75-99) mg/dL 01/11/22 Range/Units 11:31 Sodium (137-145) mmol/L Carbon Dioxide (22-30) mmol/L BUN (9-20) mg/dL Creatinine (0.66-1.25) mg/dL Glucose (74-99) mg/dL POC Glucose (mg/dL) 258 H (75-99) mg/dL Assessment and Plan Assessment: * Acute ischemic stroke probable right MCA territory, with complete left hemiplegia. Etiology is crytogenic (appears embolic in nature) vs in addition due to cocaine use (which causes vasocontriction). * History of CVA over left hemisphere in March 2021, with residual spastic right hemiparesis * Severe stenosis of left ICA * Toxic-metabolic encephalopathy * Hypertension * Diabetes * Hyperlipidemia * Positive for cocaine use Plan: * Repeat CT head on 01/07/2022: Slightly progressive/evolving right superior frontal cortical and subcortical infarct. No gross hemorrhagic transformation , midline shift or herniation. Stable chronic cortical cortical and subcortical left frontal and parietal infarct. Bilateral basal ganglia chronic infarct. * KEVIN today. It is reported as Interatrial septum is intact. No evidence of PFO. Left atrial appendage is free of clot. EF 50-60% * Routine EEG on 01/08/2022: Abnormal routine EEG. The background slowing is suggestive of mild encephalopathy. Otherwise no focal slowing, epileptiform discharges or seizure on the EEG. * Patient has severe stenosis of the left ICA, but the acute symptoms are on the contralateral side. Vascular surgery input appreciated. Not a candidate for CEA this time, as the stenosis is currently on the asymptomatic side. However now with current severe left hemiplegia, the only partially functional side is the right, which needs to be preserved if possible. Therefore left CEA as an outpatient in 4-6 weeks could be considered if indicated. * Continue Lipitor 80 mg daily. * B12 732, hemoglobin A1c 9.6, folate 6.5. Start folic acid 1 mg daily. * Continue Brilinta 90 mg twice a day. Continue aspirin 81 mg daily. * Will defer the rest of medical management to primary team. * For DVT prophylaxis: On sub heparin. * Upon discharge, recommend for patient to follow-up with neurologist within 1-2 weeks as outpatient. No further neurological work-up. I feel patient will benefit from rehab. The plan is discussed with the patient's nurse. Kel Gipson M.D. Neuro-Hospitalist. Time with Patient: Less than 30
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
[2022-01-11] MEDS ORDERED: SERTRALINE 25 MG TAB PO SCH (13:45)
[2022-01-11 15:24] VITALS: BP 162/76; PULSE 84; RESP 17; TEMP 98.2
[2022-01-11] MEDS ORDERED: SODIUM BICARBONATE TAB 650 MG TAB PO SCH (16:00)
[2022-01-11 16:37] LABS: Glucose,Whole Blood 378 mg/dL (75-99)
[2022-01-11] MEDS ORDERED: carvediloL 12.5 MG TAB PO SCH (17:30)
== END 2022-01-11 18:37 | DRG 64 ==
LOC: EC 09:24 → 3SCARD 11:44
PROVIDERS: ADMIT Family Medicine; ATTEND Family Medicine
PROC: B246ZZ4 Ultrasonography of Right and Left Heart, Transesophageal (ICD-10-PCS; principal; 2022-01-09 10:30)
DX: I63.89 Other cerebral infarction (principal); G92.8 Other toxic encephalopathy; J18.9 Pneumonia, unspecified organism; N17.0 Acute kidney failure with tubular necrosis; E87.2 Acidosis; I69.351 Hemiplegia and hemiparesis following cerebral infarction affecting right dominant side; R47.01 Aphasia; H53.8 Other visual disturbances; I12.9 Hypertensive chronic kidney disease with stage 1 through stage 4 chronic kidney disease, or unspecified chronic kidney disease; N18.32 Chronic kidney disease, stage 3b; R29.713 NIHSS score 13; E11.22 Type 2 diabetes mellitus with diabetic chronic kidney disease; E11.36 Type 2 diabetes mellitus with diabetic cataract; E11.65 Type 2 diabetes mellitus with hyperglycemia; E78.5 Hyperlipidemia, unspecified; E87.6 Hypokalemia; F14.10 Cocaine abuse, uncomplicated; F20.9 Schizophrenia, unspecified; F41.9 Anxiety disorder, unspecified; I65.22 Occlusion and stenosis of left carotid artery; J84.89 Other specified interstitial pulmonary diseases; N28.1 Cyst of kidney, acquired; R29.810 Facial weakness; Z20.822 Contact with and (suspected) exposure to COVID-19; M79.89 Other specified soft tissue disorders; T50.2X5A Adverse effect of carbonic-anhydrase inhibitors, benzothiadiazides and other diuretics, initial encounter; R47.1 Dysarthria and anarthria; R31.9 Hematuria, unspecified; R77.8 Other specified abnormalities of plasma proteins; R33.0 Drug induced retention of urine; Z91.81 History of falling; Z79.02 Long term (current) use of antithrombotics/antiplatelets; Z79.4 Long term (current) use of insulin; Z79.82 Long term (current) use of aspirin; Z79.899 Other long term (current) drug therapy; Z82.3 Family history of stroke; Z83.3 Family history of diabetes mellitus; Z81.8 Family history of other mental and behavioral disorders; Z81.1 Family history of alcohol abuse and dependence; Z87.891 Personal history of nicotine dependence; Z88.6 Allergy status to analgesic agent; Z88.5 Allergy status to narcotic agent; Z88.8 Allergy status to other drugs, medicaments and biological substances; Z87.81 Personal history of (healed) traumatic fracture; T22.2 Burn of second degree of shoulder and upper limb, except wrist and hand; T25.2 Burn of second degree of ankle and foot; T25.221S Burn of second degree of right foot, sequela; T22.3 Burn of third degree of shoulder and upper limb, except wrist and hand; T25.32 Burn of third degree of foot; X00 Exposure to uncontrolled fire in building or structure
CPT/HCPCS: 36415; 70450; 70496; 70498; 71045; 71046; 76770; 80048; 80053; 80061; 80074; 80306; 81001; 82140; 82570; 82607; 82746; 83036; 83605; 83735; 83880; 84145; 84156; 84165; 84443; 84484; 85025; 85610; 85730; 86038; 86160; 86162; 86225; 86255; 86334; 86335; 87086; 87635; 93005; 93306; 93312; 93320; 93325; 93880; 93970; 95816; 96361; 96374; 99291

== ENCOUNTER 2023-12-04 05:44 | Emergency (ER) | payer MEDICARE, OTHER ==
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
[2023-12-04 08:06] LABS: Anisocytosis Slight; Basophils % (A) 1 %; Eosinophils # (A) 0.2 k/uL (0-0.7); Eosinophils % (A) 4 %; HCT 32.1 % (39.0-53.0); HGB 10.1 gm/dL (13.0-17.5); Lymphocytes # (A) 1.1 k/uL (1.0-4.8); Lymphocytes % (A) 28 %; MCH 27.4 pg (25.0-35.0); MCHC 31.5 g/dL (31.0-37.0); MCV 86.9 fL (80.0-100.0); Mean Platelet Volume 8.6; Monocytes # (A) 0.6 k/uL (0-1.0); Monocytes % (A) 15 %; Neutrophils # (A) 1.8 k/uL (1.3-7.7); Neutrophils % (A) 48 %; Platelet Count 275 k/uL (150-450); RBC 3.69 m/uL (4.30-5.90); RDW 17.8 % (11.5-15.5); WBC 3.9 k/uL (3.8-10.6)
[2023-12-04 08:09] LABS: ALT 59 U/L (4-49); AST 75 U/L (17-59); African American GFR (CKD) 23 (>60 ml/min/1.73 sqM); Albumin 4.3 g/dL (3.5-5.0); Alkaline Phosphatase 105 U/L (38-126); Amylase 64 U/L (30-110); Anion Gap 12 mmol/L; Blood Urea Nitrogen 46 mg/dL (9-20); Calcium 9.8 mg/dL (8.4-10.2); Carbon Dioxide 20 mmol/L (22-30); Chloride 108 mmol/L (98-107); Glucose 135 mg/dL (74-99); Lipase 56 U/L (23-300); Non-African American GFR(CKD) 20 (>60 ml/min/1.73 sqM); Sodium 140 mmol/L (137-145); Total Bilirubin 1.1 mg/dL (0.2-1.3); Total Protein 7.9 g/dL (6.3-8.2)
[2023-12-04 08:11] LABS: Potassium 5.4 mmol/L (3.5-5.1)
--- NOTE | 2023-12-04 09:01 | CT ---
EXAMINATION TYPE: CT abdomen pelvis wo con DATE OF EXAM: 12/04/2023 COMPARISON: None HISTORY: 73-year-old male abd pain and distention CT DLP: 929.4 mGycm. Automated exposure control for dose reduction was used. TECHNIQUE: Contiguous axial scanning of the abdomen and pelvis without IV contrast. Coronal and sagit corwin reconstructions performed. FINDINGS: Heart normal size without pericardial effusion. Some strandy atelectasis in the lower lungs. No pleur al effusion. Small hiatal hernia. Asymmetric mild to moderate gynecomastia on the left. Metallic BBs throughout the left forearm and within the left upper quadrant. The exam is prominently limited due to lack of contrast and breathing motion. Noncontrast appearance of the liver, gallbladder, adrenal glands, and spleen show no gross abnormalit y. The pancreas is diffusely atrophic. Multiple underlying cortical lesions within the kidney. A few of these are indeterminate measuring up to 2.0 cm on the left and 1.6 cm on the right and show a hyperdense appearance, possible hemorrhagic cyst. Follow-up recommended to exclude the possibility of solid masses. No hydronephrosis seen. No dilated small bowel, free fluid, or free air. No mesenteric or retroperitoneal lymphadenopathy. Moderate atherosclerotic calcifications infrarenal abdominal aorta. Normal appendix. There is a large stool within the transverse colon. Not only is the sigmoid colon, b ut also the transverse colon are markedly redundant and tortuous. The segment of colon containing a l arge amount of stool within the left mid and lower abdomen corresponds to the redundant transverse co carlos. No abnormal wall thickening or discrete transition point is identified. Bladder urine distended. No abnormal fluid collection the pelvis or pelvic lymphadenopathy. Bones: Moderate to severe degenerative change of the hips. Degenerative bony ankylosis of the SI join ts. [facility] throughout the visualized lower thoracic spine. Advanced hypertrophic facet arthropathy. Baastru p's disease. IMPRESSION: 1. Markedly redundant and tortuous transverse colon and sigmoid colon. There is a large amount of st ool distending the transverse colon up to 6.5 cm. 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 No convincing transition point is identified. 2. Indeterminant cortical lesions within the kidneys measuring up to 2.0 cm. These may represent hem orrhagic cysts but small solid masses are not excluded at this time. Recommend three-month follow-up kidney mass protocol CT to reassess and for further characterization.
[2023-12-04 09:21] LABS: Appearance,Urine Clear (Clear); Bilirubin,Urine Negative (Negative); Blood,Urine Negative (Negative); Color,Urine Light Yellow; Glucose,Urine (UA) Negative (Negative); Ketones,Urine Negative (Negative); Leukocyte Esterase,Urine Negative (Negative); Nitrite,Urine Negative (Negative); Protein,Urine 2+ (Negative); RBC,Urine <1 /hpf (0-5); Specific Gravity,Urine 1.012 (1.001-1.035); Urobilinogen,Urine <2.0 mg/dL (<2.0); WBC,Urine 1 /hpf (0-5)
[2023-12-04] MEDS: LACTULOSE 20 GM/30 ML CUP PO ONE ×2 (10:15→10:58)
[2023-12-04] MEDS: SODIUM CHLORIDE 0.9% 1,000 ML IV STA (10:15)
[2023-12-04] MEDS: NA PHOS,M-B/NA PHOS,DI-BA 133 ML ENEMA RECTAL ONE (10:17)
[2023-12-04 10:47] VITALS: BP 180/78; PULSE 66; RESP 15; TEMP 98.1
== END 2023-12-04 11:55 | disposition home or self-care (01) ==
LOC: EC 05:44 → EEVIPCON 05:44 → EC 11:55
DX: Q43.8 Other specified congenital malformations of intestine (principal); I10 Essential (primary) hypertension; E78.5 Hyperlipidemia, unspecified; E11.36 Type 2 diabetes mellitus with diabetic cataract; M19.90 Unspecified osteoarthritis, unspecified site; F31.9 Bipolar disorder, unspecified; F41.9 Anxiety disorder, unspecified; Z79.02 Long term (current) use of antithrombotics/antiplatelets; Z79.4 Long term (current) use of insulin; Z79.82 Long term (current) use of aspirin; Z79.899 Other long term (current) drug therapy; Z88.5 Allergy status to narcotic agent; Z88.6 Allergy status to analgesic agent; Z88.8 Allergy status to other drugs, medicaments and biological substances; Z86.73 Personal history of transient ischemic attack (TIA), and cerebral infarction without residual deficits
CPT/HCPCS: 36415; 74176; 80053; 81001; 82150; 83605; 83690; 85025; 93005; 96360; 99285

== ENCOUNTER 2024-07-31 15:48 | Inpatient (IN) | payer MEDICARE, OTHER ==
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
[2024-07-31] MEDS: ACETAMINOPHEN IV (For NPO) 1,000 MG in EMPTY BAG 1 BAG IVPB STA (17:10)
[2024-07-31 17:11] LABS: ALT 20 U/L (4-49); AST 27 U/L (17-59); African American GFR (CKD) 16 (>60 ml/min/1.73 sqM); Albumin 3.9 g/dL (3.5-5.0); Alkaline Phosphatase 90 U/L (38-126); Anion Gap 10 mmol/L; Blood Urea Nitrogen 50 mg/dL (9-20); Calcium 9.5 mg/dL (8.4-10.2); Carbon Dioxide 25 mmol/L (22-30); Chloride 103 mmol/L (98-107); Glucose 105 mg/dL (74-99); Non-African American GFR(CKD) 14 (>60 ml/min/1.73 sqM); Sodium 138 mmol/L (137-145); Total Bilirubin 0.5 mg/dL (0.2-1.3); Total Protein 6.9 g/dL (6.3-8.2)
[2024-07-31] MEDS: SODIUM CHLORIDE 0.9% 1,000 ML IV STA (17:12)
[2024-07-31 17:14] LABS: Anisocytosis Slight; HCT 29.5 % (39.0-53.0); HGB 9.3 gm/dL (13.0-17.5); Hypochromasia Moderate; MCH 28.1 pg (25.0-35.0); MCHC 31.5 g/dL (31.0-37.0); MCV 89.3 fL (80.0-100.0); Mean Platelet Volume 8.1; Platelet Count 213 k/uL (150-450); RDW 16.6 % (11.5-15.5); WBC 23.9 k/uL (3.8-10.6)
--- NOTE | 2024-07-31 17:22 | XR ---
EXAMINATION TYPE: XR chest 1V portable DATE OF EXAM: 07/31/2024 5:02 PM COMPARISON: Chest radiographs from 01/09/2022. CLINICAL INDICATION: Male, 74 years old with history of fever; [facility] TECHNIQUE: XR chest 1V portable Frontal view of the chest. FINDINGS: Lungs/Pleura: Low lung volumes are present. There is no evidence of pleural effusion, focal consolida tion, or pneumothorax. Pulmonary vascularity: Unremarkable. Heart/mediastinum: Cardiomediastinal silhouette is unremarkable. Musculoskeletal: No acute osseous pathology. Other findings: Metallic densities project over the left lower chest/upper abdomen Lines/Tubes: IMPRESSION: Low lung volumes with a generalized hazy appearance which could represent atelectasis versus atypical pneumonia. [facility], , 07/31/2024 5:20 PM
[2024-07-31 17:30] LABS: Appearance,Urine Cloudy (Clear); Bacteria,Urine Rare /hpf; Bilirubin,Urine Negative (Negative); Blood,Urine Negative (Negative); Color,Urine Yellow; Glucose,Urine (UA) Negative (Negative); Hyaline Casts,Urine 3 /lpf (0-2); Ketones,Urine Negative (Negative); Leukocyte Esterase,Urine Large (Negative); Mucus,Urine Rare /hpf; Nitrite,Urine Negative (Negative); PH, Urine 5.5 (5.0-8.0); Protein,Urine 2+ (Negative); RBC,Urine 1 /hpf (0-5); Specific Gravity,Urine 1.014 (1.001-1.035); Squamous Epithelial Cell,Urine <1 /hpf (0-4); Urobilinogen,Urine <2.0 mg/dL (<2.0); WBC,Urine 71 /hpf (0-5)
[2024-07-31 17:36] LABS: Band Neutrophils % 12 %; Eosinophils # (M) 0.24 k/uL (0-0.7); Lymphocytes # (M) 0.96 k/uL (1.0-4.8); Metamyelocytes # (M) 0.24 k/uL (0); Metamyelocytes % 1 %; Monocytes # (M) 0.24 k/uL (0-1.0); Neutrophils % (M) 81 %; Nucleated Red Blood Cells 0 /100 WBC (0-0); Total Cells Counted 100
[2024-07-31] MEDS ORDERED: ACETAMINOPHEN TAB 325 MG TAB PO PRN (18:03)
[2024-07-31] MEDS ORDERED: VANCOMYCIN IV PER PHARMACY 1 EACH MISC MISCELLANE PRN (18:03)
[2024-07-31] MEDS ORDERED: NALOXONE 0.4 MG/ML 1 ML VIAL IV PRN (18:03)
[2024-07-31] MEDS: VANCOMYCIN 1,500 MG in SODIUM CHLORIDE 0.9% 500 ML 500 ML IVPB STA (18:55)
[2024-07-31] MEDS: SODIUM CHLORIDE 0.9% 1,000 ML IV SCH (18:56)
[2024-08-01 07:08] LABS: Glucose,Whole Blood 101 mg/dL (70-110)
[2024-08-01 11:00] LABS: Chloride 104 mmol/L (98-107); Glucose 78 mg/dL (74-99); Sodium 138 mmol/L (137-145)
[2024-08-01 11:01] LABS: African American GFR (CKD) 17 (>60 ml/min/1.73 sqM); Anion Gap 10 mmol/L; Blood Urea Nitrogen 56 mg/dL (9-20); Calcium 8.6 mg/dL (8.4-10.2); Carbon Dioxide 24 mmol/L (22-30); Non-African American GFR(CKD) 15 (>60 ml/min/1.73 sqM)
[2024-08-01] MEDS ORDERED: guaiFENesin-DM 100-10MG/5ML 10 ML CUP PO PRN (11:05)
[2024-08-01] MEDS ORDERED: MAGNESIUM HYDROXIDE 2,400 MG/30 ML CUP PO PRN (11:05)
[2024-08-01] MEDS ORDERED: NA PHOS,M-B/NA PHOS,DI-BA 133 ML ENEMA RECTAL PRN (11:05)
[2024-08-01] MEDS ORDERED: bisacodyL 10 MG SUPP RECTAL PRN (11:05)
[2024-08-01] MEDS ORDERED: LOPERAMIDE 2 MG CAP PO PRN (11:05)
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
[2024-08-01 12:36] LABS: Glucose,Whole Blood 87 mg/dL (70-110)
[2024-08-01] MEDS: VANCOMYCIN 1,500 MG in SODIUM CHLORIDE 0.9% 500 ML 500 ML IVPB ONE (12:36)
[2024-08-01] MEDS: INSULIN ASPART (NovoLOG) 100 UNIT/ML VIAL SQ SCH (13:11)
[2024-08-01] MEDS ORDERED: CEFEPIME 2 GM in SODIUM CHLORIDE 0.9% 100 ML IVPB SCH (16:00)
[2024-08-01 16:30] LABS: Glucose,Whole Blood 95 mg/dL (70-110)
[2024-08-01] MEDS ORDERED: cloNIDine HCL 0.2 MG TAB PO SCH (17:00)
[2024-08-01] MEDS: ARTIFICIAL TEARS-HYPROMELLOSE DROPS 15 ML BTL BOTH EYES SCH (17:22)
[2024-08-01] MEDS: QUEtiapine 25 MG TAB PO SCH (18:08)
[2024-08-01] MEDS: TICAGRELOR 90 MG TAB PO SCH (18:08)
[2024-08-01] MEDS: SENNOSIDES 8.6 MG TAB PO SCH (18:08)
[2024-08-01] MEDS: SODIUM BICARBONATE TAB 650 MG TAB PO SCH (18:08)
[2024-08-01] MEDS: carvediloL 12.5 MG TAB PO SCH (18:08)
[2024-08-01] MEDS: HEPARIN SODIUM,PORCINE 5,000 UNIT/ML 1 ML VIAL SQ SCH (18:08)
[2024-08-01] MEDS: PIPERACILLIN-TAZOBACTAM 3.375 GM in SODIUM CHLORIDE 0.9% 100 ML IVPB SCH (18:44)
[2024-08-01 20:04] LABS: Glucose,Whole Blood 168 mg/dL (70-110)
[2024-08-01] MEDS: ATORVASTATIN 80 MG TAB PO SCH (21:10)
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
[2024-08-01] MEDS: INSULIN DETEMIR (LEVEMIR) 100 UNIT/ML SYR SQ SCH (23:08)
[2024-08-02 05:53] LABS: Glucose,Whole Blood 136 mg/dL (70-110)
[2024-08-02 08:07] LABS: Anisocytosis Slight; HCT 27.2 % (39.0-53.0); HGB 8.4 gm/dL (13.0-17.5); Hypochromasia Moderate; MCH 27.5 pg (25.0-35.0); MCHC 30.9 g/dL (31.0-37.0); MCV 89.2 fL (80.0-100.0); Mean Platelet Volume 8.7; Platelet Count 196 k/uL (150-450); RBC 3.05 m/uL (4.30-5.90); RDW 16.9 % (11.5-15.5); WBC 33.7 k/uL (3.8-10.6)
[2024-08-02 08:15] LABS: African American GFR (CKD) 19 (>60 ml/min/1.73 sqM); Anion Gap 12 mmol/L; Blood Urea Nitrogen 55 mg/dL (9-20); Calcium 8.7 mg/dL (8.4-10.2); Carbon Dioxide 23 mmol/L (22-30); Chloride 105 mmol/L (98-107); Magnesium 1.8 mg/dL (1.6-2.3); Non-African American GFR(CKD) 16 (>60 ml/min/1.73 sqM); Potassium 3.4 mmol/L (3.5-5.1); Sodium 140 mmol/L (137-145)
[2024-08-02 08:29] LABS: Glucose 34 mg/dL (74-99)
[2024-08-02 08:37] LABS: Glucose,Whole Blood 153 mg/dL (70-110)
[2024-08-02] MEDS: TAMSULOSIN 0.4 MG CAP.ER.24H PO SCH (08:45)
[2024-08-02] MEDS: LACTULOSE 20 GM/30 ML CUP PO SCH (08:46)
[2024-08-02] MEDS: buPROPion XL 300 MG TAB.ER.24H PO SCH (08:46)
[2024-08-02] MEDS: ASPIRIN 81 MG PO SCH (08:46)
[2024-08-02] MEDS: POTASSIUM CHLORIDE ER 20 MEQ TAB.ER PO STA (09:56)
--- NOTE | 2024-08-02 10:01 | P.PN ---
Subjective Patient is seen in follow-up for acute kidney injury on chronic kidney disease. Renal function better. Receiving IV fluids. Poor historian. Vital signs are stable. General: No acute distress. HEENT: Head exam is unremarkable. LUNGS: No audible rhonchi or wheezes. HEART: Rate and Rhythm are regular. ABDOMEN: Nontender. EXTREMITITES: 1+ edema left lower extremity. Chronic changes noted. Objective - Vital Signs Vital signs: Vital Signs Temp 98.1 F 08/02/24 08:36 Pulse 64 08/02/24 08:36 Resp 16 08/02/24 08:36 BP 133/74 08/02/24 08:36 Pulse Ox 98 08/02/24 08:36 FiO2 Intake & Output 08/01/24 08/02/24 08/02/24 18:59 06:59 18:59 Intake Total 740 120 120 Output Total 700 Balance 740 -580 120 Weight 95.254 kg 94 kg Intake: Intake, IV Titration 500 Amount Vancomycin 1,500 mg In 500 Sodium Chloride 0.9% 500 ml 500 ml @ 167 mls/hr IVPB ONCE ONE Rx#: [id number] Oral 240 120 120 Output: Urine 700 Other: Voiding Method Diaper Diaper Incontinent Incontinent # Voids 1 - Labs CBC & Chem 7: 08/02/24 07:37 08/02/24 07:37 Labs: Abnormal Lab Results - Last 24 Hours (Table) 08/01/24 08/01/24 08/01/24 Range/Units 10:12 10:12 10:12 WBC (3.8-10.6) k/uL RBC (4.30-5.90) m/uL Hgb (13.0-17.5) gm/dL Hct (39.0-53.0) % MCHC (31.0-37.0) g/dL RDW (11.5-15.5) % Potassium (3.5-5.1) mmol/L BUN 56 H (9-20) mg/dL Creatinine 3.80 H (0.66-1.25) mg/dL Glucose (74-99) mg/dL POC Glucose (mg/dL) (70-110) mg/dL Phosphorus 4.9 H (2.5-4.5) mg/dL Procalcitonin >100.00 H (0.02-0.50) ng/mL 08/01/24 08/02/24 08/02/24 Range/Units 20:01 05:51 07:37 WBC 33.7 H (3.8-10.6) k/uL RBC 3.05 L (4.30-5.90) m/uL Hgb 8.4 L (13.0-17.5) gm/dL Hct 27.2 L (39.0-53.0) % MCHC 30.9 L (31.0-37.0) g/dL RDW 16.9 H (11.5-15.5) % Potassium (3.5-5.1) mmol/L BUN (9-20) mg/dL Creatinine (0.66-1.25) mg/dL Glucose (74-99) mg/dL POC Glucose (mg/dL) 168 H 136 H (70-110) mg/dL Phosphorus (2.5-4.5) mg/dL Procalcitonin (0.02-0.50) ng/mL 08/02/24 08/02/24 Range/Units 07:37 08:34 WBC (3.8-10.6) k/uL RBC (4.30-5.90) m/uL Hgb (13.0-17.5) gm/dL Hct (39.0-53.0) % MCHC (31.0-37.0) g/dL RDW (11.5-15.5) % Potassium 3.4 L (3.5-5.1) mmol/L BUN 55 H (9-20) mg/dL Creatinine 3.52 H (0.66-1.25) mg/dL Glucose 34 L* (74-99) mg/dL POC Glucose (mg/dL) 153 H (70-110) mg/dL Phosphorus (2.5-4.5) mg/dL Procalcitonin (0.02-0.50) ng/mL Microbiology - Last 24 Hours (Table) 07/31/24 17:00 Blood Culture - Preliminary Blood 07/31/24 17:06 Urine Culture - Final Urine,Voided Assessment and Plan Plan: Assessment: 1. Acute kidney injury secondary to ATN secondary to severe sepsis. Renal function improving. Creatinine 3.5 today. 2. Chronic kidney disease stage IV baseline creatinine 3.1-3.4 secondary to diabetic kidney disease. 3. Diabetes mellitus. 4. Hypertension with chronic kidney disease. Stable. 5. UTI on antibiotics. 6. Hypokalemia from poor intake. Replaced. 7. Anemia of chronic kidney disease. Plan: Maintain IV fluids. Check bladder scan to rule out urinary retention. Avoid nephrotoxins. DC Fleet enemas. Continue to monitor renal function and urine output. Check iron studies.
[2024-08-02 12:00] LABS: Glucose,Whole Blood 438 mg/dL (70-110)
[2024-08-02 12:03] LABS: Glucose,Whole Blood 131 mg/dL (70-110)
--- NOTE | 2024-08-02 12:32 | P.PN ---
Subjective Progress Note Date: 08/02/24 Principal diagnosis: Reason for follow-up is possible pneumonia/leukocytosis Patient is a 74-year-old -[place] male with a past medical history significant for diabetes mellitus hypertension hyperlipidemia osteoarthritis CVA TIA in this patient who is a halfway resident patient has been brought into the hospital concerning for increasing confusion and fever patient has been diagnosed with sepsis possible related to the pneumonia less likely UTI. On today's evaluation that is 08/02/2024, Patient did have resolution of his fever and is afebrile this morning patient denies having any chest pain shortness of breath or any worsening cough, the patient is currently on room air, patient denies any abdominal pain no diarrhea no nausea no vomiting. Patient white count is up to 33.7, creatinine 3.52 Objective - Vital Signs Vital signs: Vital Signs Temp 98.1 F 08/02/24 08:36 Pulse 64 08/02/24 08:36 Resp 16 08/02/24 08:36 BP 133/74 08/02/24 08:36 Pulse Ox 98 08/02/24 08:36 FiO2 Intake & Output 08/01/24 08/02/24 08/02/24 18:59 06:59 18:59 Intake Total 740 120 120 Output Total 700 Balance 740 -580 120 Weight 95.254 kg 94 kg Intake: Intake, IV Titration 500 Amount Vancomycin 1,500 mg In 500 Sodium Chloride 0.9% 500 ml 500 ml @ 167 mls/hr IVPB ONCE ONE Rx#: [id number] Oral 240 120 120 Output: Urine 700 Other: Voiding Method Diaper Diaper Incontinent Incontinent # Voids 1 - Exam GENERAL DESCRIPTION: An elderly male lying in bed in no distress RESPIRATORY SYSTEM: Unlabored breathing , decreased breath sounds at bases HEART: S1 S2 regular rate and rhythm , ABDOMEN: Soft , no tenderness EXTREMITIES: No edema feet - Labs CBC & Chem 7: 08/02/24 07:37 08/02/24 07:37 Labs: Abnormal Lab Results - Last 24 Hours (Table) 08/01/24 08/01/24 08/01/24 Range/Units 10:12 10:12 10:12 WBC (3.8-10.6) k/uL RBC (4.30-5.90) m/uL Hgb (13.0-17.5) gm/dL Hct (39.0-53.0) % MCHC (31.0-37.0) g/dL RDW (11.5-15.5) % Potassium (3.5-5.1) mmol/L BUN 56 H (9-20) mg/dL Creatinine 3.80 H (0.66-1.25) mg/dL Glucose (74-99) mg/dL POC Glucose (mg/dL) (70-110) mg/dL Phosphorus 4.9 H (2.5-4.5) mg/dL Procalcitonin >100.00 H (0.02-0.50) ng/mL 08/01/24 08/02/24 08/02/24 Range/Units 20:01 05:51 07:37 WBC 33.7 H (3.8-10.6) k/uL RBC 3.05 L (4.30-5.90) m/uL Hgb 8.4 L (13.0-17.5) gm/dL Hct 27.2 L (39.0-53.0) % MCHC 30.9 L (31.0-37.0) g/dL RDW 16.9 H (11.5-15.5) % Potassium (3.5-5.1) mmol/L BUN (9-20) mg/dL Creatinine (0.66-1.25) mg/dL Glucose (74-99) mg/dL POC Glucose (mg/dL) 168 H 136 H (70-110) mg/dL Phosphorus (2.5-4.5) mg/dL Procalcitonin (0.02-0.50) ng/mL 08/02/24 08/02/24 Range/Units 07:37 08:34 WBC (3.8-10.6) k/uL RBC (4.30-5.90) m/uL Hgb (13.0-17.5) gm/dL Hct (39.0-53.0) % MCHC (31.0-37.0) g/dL RDW (11.5-15.5) % Potassium 3.4 L (3.5-5.1) mmol/L BUN 55 H (9-20) mg/dL Creatinine 3.52 H (0.66-1.25) mg/dL Glucose 34 L* (74-99) mg/dL POC Glucose (mg/dL) 153 H (70-110) mg/dL Phosphorus (2.5-4.5) mg/dL Procalcitonin (0.02-0.50) ng/mL Microbiology - Last 24 Hours (Table) 07/31/24 17:00 Blood Culture - Preliminary Blood 07/31/24 17:06 Urine Culture - Final Urine,Voided Assessment and Plan (1) Sepsis Current Visit: Yes Status: Acute Code(s): A41.9 - SEPSIS, UNSPECIFIED ORGANISM SNOMED Code(s): 58920189 (2) Pneumonia Current Visit: No Status: Acute Code(s): J18.9 - PNEUMONIA, UNSPECIFIED ORGANISM SNOMED Code(s): 800404158 Plan: 1patient presented to hospital with sepsis in this patient who did have fever elevated white count source is likely pneumonia as patient did have significant respiratory symptom of cough with sputum production and halfway resident will need to cover for resistant gram-negative to be the likely pathogen did have a positive UA urinary source monitor excluded patient however has not a very good historian as for his urinary symptoms. 2patient with renal insufficiency high risk of nephrotoxicity from vancomycin. 3currently waiting for sputum and procalcitonin level 4patient did have resolution of his fever but worsening of the white count for now continue with Zosyn any further white count worsening we will check a CT of abdominal pelvis patient currently not having any diarrhea as discussed with the nursing staff Dictation was produced using [employer] dictation software. please excuse any gramma tical, word or spelling errors. Time with Patient: Less than 30
--- NOTE | 2024-08-02 12:42 | US ---
EXAMINATION TYPE: US kidneys/renal and bladder DATE OF EXAM: 08/02/2024 Exam done portable COMPARISON: CT 2023, US 2021 CLINICAL INDICATION: Male, 74 years old with history of sang; TECHNIQUE: Grayscale imaging of the bilateral kidneys and urinary bladder: FINDINGS: EXAM MEASUREMENTS: Right Kidney: 10.5 x 5.0 x 4.3 cm Right Kidney: 1.4cm indeterminate inferior pole lesion. Left Kidney: unable to see due to patient unable to move left arm away from his side and unable to ro ll Bladder: not distended - hackett catheter No hydronephrosis or nephrolithiasis. IMPRESSION: 1. No hydronephrosis or nephrolithiasis of the right kidney. Indeterminate 1.4 cm right renal lesion. 2. Left kidney is not visualized. [facility], , 08/02/2024 12:39 PM
[2024-08-02 15:13] LABS: % Iron Saturation 9.23 (15.00-50.00)
[2024-08-02 16:50] LABS: Glucose,Whole Blood 126 mg/dL (70-110)
[2024-08-02 20:05] LABS: Glucose,Whole Blood 170 mg/dL (70-110)
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
[2024-08-03 06:08] LABS: Glucose,Whole Blood 102 mg/dL (70-110)
[2024-08-03 07:39] LABS: Anisocytosis Slight; Basophils # (A) 0.1 k/uL (0-0.2); Basophils % (A) 0 %; Eosinophils # (A) 0.2 k/uL (0-0.7); Eosinophils % (A) 1 %; HCT 25.8 % (39.0-53.0); HGB 7.9 gm/dL (13.0-17.5); Hypochromasia Marked; Lymphocytes # (A) 1.4 k/uL (1.0-4.8); Lymphocytes % (A) 5 %; MCH 27.7 pg (25.0-35.0); MCHC 30.6 g/dL (31.0-37.0); MCV 90.5 fL (80.0-100.0); Mean Platelet Volume 9.7; Monocytes # (A) 0.7 k/uL (0-1.0); Monocytes % (A) 3 %; Neutrophils # (A) 25.7 k/uL (1.3-7.7); Neutrophils % (A) 91 %; Platelet Count 186 k/uL (150-450); RBC 2.85 m/uL (4.30-5.90); WBC 28.3 k/uL (3.8-10.6)
[2024-08-03 07:54] LABS: African American GFR (CKD) 20 (>60 ml/min/1.73 sqM); Anion Gap 14 mmol/L; Blood Urea Nitrogen 56 mg/dL (9-20); Calcium 8.7 mg/dL (8.4-10.2); Carbon Dioxide 19 mmol/L (22-30); Chloride 108 mmol/L (98-107); Glucose 73 mg/dL (74-99); Magnesium 1.9 mg/dL (1.6-2.3); Non-African American GFR(CKD) 17 (>60 ml/min/1.73 sqM); Potassium 3.5 mmol/L (3.5-5.1); Sodium 141 mmol/L (137-145)
--- NOTE | 2024-08-03 10:10 | P.PN ---
Subjective Patient is seen in follow-up for acute kidney injury on chronic kidney disease. Renal function slightly better. Receiving IV fluids. Poor historian. Vital signs are stable. General: No acute distress. HEENT: Head exam is unremarkable. LUNGS: No audible rhonchi or wheezes. HEART: Rate and Rhythm are regular. ABDOMEN: Nontender. EXTREMITITES: 1+ edema left lower extremity. Chronic changes noted. Objective - Vital Signs Vital signs: Vital Signs Temp 98.7 F 08/03/24 04:00 Pulse 68 08/03/24 07:40 Resp 16 08/03/24 07:40 BP 140/62 08/03/24 07:40 Pulse Ox 99 08/03/24 07:40 FiO2 Intake & Output 08/02/24 08/03/24 08/03/24 18:59 06:59 18:59 Intake Total 1320 465 Output Total 500 1400 Balance 820 -935 Weight 68 kg Intake: IV 225 0.9 225 Oral 1320 240 Output: Urine 500 1400 Other: Voiding Method External Catheter Indwelling Catheter Indwelling Catheter # Voids 0 # Bowel Movements 0 1 - Labs CBC & Chem 7: 08/03/24 06:10 08/03/24 06:10 Labs: Abnormal Lab Results - Last 24 Hours (Table) 08/02/24 08/02/24 08/02/24 Range/Units 07:37 11:54 12:01 WBC (3.8-10.6) k/uL RBC (4.30-5.90) m/uL Hgb (13.0-17.5) gm/dL Hct (39.0-53.0) % MCHC (31.0-37.0) g/dL RDW (11.5-15.5) % Chloride (98-107) mmol/L Carbon Dioxide (22-30) mmol/L BUN (9-20) mg/dL Creatinine (0.66-1.25) mg/dL Glucose (74-99) mg/dL POC Glucose (mg/dL) 438 H 131 H (70-110) mg/dL Iron 18 L (65-175) UG/DL TIBC 195 L (228-460) UG/DL % Saturation 9.23 L (15.00-50.00) Transferrin 139.0 L (204.0-354.0) mg/dL Ferritin 955.0 H (22.0-322.0) ng/mL 08/02/24 08/02/24 08/03/24 Range/Units 16:39 20:03 06:10 WBC (3.8-10.6) k/uL RBC (4.30-5.90) m/uL Hgb (13.0-17.5) gm/dL Hct (39.0-53.0) % MCHC (31.0-37.0) g/dL RDW (11.5-15.5) % Chloride 108 H (98-107) mmol/L Carbon Dioxide 19 L (22-30) mmol/L BUN 56 H (9-20) mg/dL Creatinine 3.37 H (0.66-1.25) mg/dL Glucose 73 L (74-99) mg/dL POC Glucose (mg/dL) 126 H 170 H (70-110) mg/dL Iron (65-175) UG/DL TIBC (228-460) UG/DL % Saturation (15.00-50.00) Transferrin (204.0-354.0) mg/dL Ferritin (22.0-322.0) ng/mL 08/03/24 Range/Units 06:10 WBC 28.3 H (3.8-10.6) k/uL RBC 2.85 L (4.30-5.90) m/uL Hgb 7.9 L (13.0-17.5) gm/dL Hct 25.8 L (39.0-53.0) % MCHC 30.6 L (31.0-37.0) g/dL RDW 17.0 H (11.5-15.5) % Chloride (98-107) mmol/L Carbon Dioxide (22-30) mmol/L BUN (9-20) mg/dL Creatinine (0.66-1.25) mg/dL Glucose (74-99) mg/dL POC Glucose (mg/dL) (70-110) mg/dL Iron (65-175) UG/DL TIBC (228-460) UG/DL % Saturation (15.00-50.00) Transferrin (204.0-354.0) mg/dL Ferritin (22.0-322.0) ng/mL Microbiology - Last 24 Hours (Table) 07/31/24 17:00 Blood Culture - Preliminary Blood Assessment and Plan Plan: Assessment: 1. Acute kidney injury secondary to ATN secondary to severe sepsis. Renal function slightly better. Creatinine 3.37. 2. Chronic kidney disease stage IV baseline creatinine 3.1-3.4 secondary to diabetic kidney disease. 3. Diabetes mellitus. 4. Hypertension with chronic kidney disease. Stable. 5. UTI on antibiotics. 6. Hypokalemia from poor intake. Replaced. 7. Anemia of chronic kidney disease. Iron deficiency noted. 8. Metabolic acidosis secondary to chronic kidney disease and IV fluids. On oral bicarb. Plan: Maintain IV fluids. Replace potassium. Add IV iron. Avoid nephrotoxins. DC'ed Fleet enemas. Continue to monitor renal function and urine output. Repeat BMP and magnesium level 2 to 3 days postdischarge. Follow-up outpatient in 1 week.
[2024-08-03] MEDS: SODIUM FERRIC GLUCONAT-SUCROSE 125 MG in SODIUM CHLORIDE 0.9% 100 ML IVPB SCH (11:35)
[2024-08-03] MEDS: POTASSIUM CHLORIDE ER 20 MEQ TAB.ER PO STA (11:36)
[2024-08-03 11:42] LABS: Glucose,Whole Blood 110 mg/dL (70-110)
[2024-08-03 12:15] LABS: Poikilocytosis (M) Present
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
[2024-08-03 16:25] LABS: Glucose,Whole Blood 144 mg/dL (70-110)
[2024-08-03 20:14] LABS: Glucose,Whole Blood 118 mg/dL (70-110)
--- NOTE | 2024-08-03 21:23 | P.PN ---
Subjective Progress Note Date: 08/03/24 Principal diagnosis: Reason for follow-up is possible pneumonia/leukocytosis Patient is a 74-year-old -Maldivian male with a past medical history significant for diabetes mellitus hypertension hyperlipidemia osteoarthritis CVA TIA in this patient who is a custodial resident patient has been brought into the hospital concerning for increasing confusion and fever patient has been diagnosed with sepsis possible related to the pneumonia less likely UTI. On today's evaluation that is 08/03/2024,the patient denies any fever or any chills, patient is breathing comfortably on room air, the patient denies chest pain shortness of breath and cough has decreased in intensity patient denies abdominal pain, no nausea vomiting or diarrhea. White count is down to 28.3 creatinine 3.37 blood cultures are currently pending sputum not collected Objective - Vital Signs Vital signs: Vital Signs Temp 98.7 F 08/03/24 04:00 Pulse 62 08/03/24 11:14 Resp 16 08/03/24 11:14 BP 147/73 08/03/24 11:14 Pulse Ox 100 08/03/24 11:14 FiO2 Intake & Output 08/02/24 08/03/24 08/03/24 18:59 06:59 18:59 Intake Total 1320 465 180 Output Total 500 1400 Balance 820 -935 180 Weight 68 kg Intake: IV 225 0.9 225 Oral 1320 240 180 Output: Urine 500 1400 Other: Voiding Method External Catheter Indwelling Catheter Indwelling Catheter # Voids 0 # Bowel Movements 0 1 1 - Exam GENERAL DESCRIPTION: An elderly male lying in bed in no distress RESPIRATORY SYSTEM: Unlabored breathing , decreased breath sounds at bases HEART: S1 S2 regular rate and rhythm , ABDOMEN: Soft , no tenderness EXTREMITIES: No edema feet - Labs CBC & Chem 7: 08/03/24 06:10 08/03/24 06:10 Labs: Abnormal Lab Results - Last 24 Hours (Table) 08/02/24 08/02/24 08/02/24 Range/Units 07:37 16:39 20:03 WBC (3.8-10.6) k/uL RBC (4.30-5.90) m/uL Hgb (13.0-17.5) gm/dL Hct (39.0-53.0) % MCHC (31.0-37.0) g/dL RDW (11.5-15.5) % Neutrophils # (1.3-7.7) k/uL Chloride (98-107) mmol/L Carbon Dioxide (22-30) mmol/L BUN (9-20) mg/dL Creatinine (0.66-1.25) mg/dL Glucose (74-99) mg/dL POC Glucose (mg/dL) 126 H 170 H (70-110) mg/dL Iron 18 L (65-175) UG/DL TIBC 195 L (228-460) UG/DL % Saturation 9.23 L (15.00-50.00) Transferrin 139.0 L (204.0-354.0) mg/dL Ferritin 955.0 H (22.0-322.0) ng/mL 08/03/24 08/03/24 Range/Units 06:10 06:10 WBC 28.3 H (3.8-10.6) k/uL RBC 2.85 L (4.30-5.90) m/uL Hgb 7.9 L (13.0-17.5) gm/dL Hct 25.8 L (39.0-53.0) % MCHC 30.6 L (31.0-37.0) g/dL RDW 17.0 H (11.5-15.5) % Neutrophils # 25.7 H (1.3-7.7) k/uL Chloride 108 H (98-107) mmol/L Carbon Dioxide 19 L (22-30) mmol/L BUN 56 H (9-20) mg/dL Creatinine 3.37 H (0.66-1.25) mg/dL Glucose 73 L (74-99) mg/dL POC Glucose (mg/dL) (70-110) mg/dL Iron (65-175) UG/DL TIBC (228-460) UG/DL % Saturation (15.00-50.00) Transferrin (204.0-354.0) mg/dL Ferritin (22.0-322.0) ng/mL Microbiology - Last 24 Hours (Table) 07/31/24 17:00 Blood Culture - Preliminary Blood Assessment and Plan (1) Sepsis Current Visit: Yes Status: Acute Code(s): A41.9 - SEPSIS, UNSPECIFIED ORGANISM SNOMED Code(s): 03297609 (2) Pneumonia Current Visit: No Status: Acute Code(s): J18.9 - PNEUMONIA, UNSPECIFIED ORGANISM SNOMED Code(s): 416457894 Plan: 1patient presented to hospital with sepsis in this patient who did have fever elevated white count source is likely pneumonia as patient did have significant respiratory symptom of cough with sputum production and custodial resident will need to cover for resistant gram-negative to be the likely pathogen did have a positive UA urinary source monitor excluded patient however has not a very good historian as for his urinary symptoms. 2patient with renal insufficiency high risk of nephrotoxicity from vancomycin. 3sputum has not been collected and procalcitonin was more than 100 4patient did have resolution of his fever and white count is slowly trending down we will continue with Zosyn and monitor clinical course closely Dictation was produced using [employer] dictation software. please excuse any grammatical, word or spelling errors. Time with Patient: Less than 30
[2024-08-04 06:04] LABS: Glucose,Whole Blood 92 mg/dL (70-110)
[2024-08-04 08:27] LABS: African American GFR (CKD) 24 (>60 ml/min/1.73 sqM); Anion Gap 11 mmol/L; Blood Urea Nitrogen 49 mg/dL (9-20); Carbon Dioxide 19 mmol/L (22-30); Chloride 113 mmol/L (98-107); Glucose 75 mg/dL (74-99); Magnesium 1.9 mg/dL (1.6-2.3); Non-African American GFR(CKD) 20 (>60 ml/min/1.73 sqM); Potassium 3.7 mmol/L (3.5-5.1); Sodium 143 mmol/L (137-145)
[2024-08-04 08:28] LABS: Anisocytosis Slight; Basophils # (A) 0.1 k/uL (0-0.2); Basophils % (A) 0 %; Eosinophils # (A) 0.2 k/uL (0-0.7); Eosinophils % (A) 1 %; HCT 26.6 % (39.0-53.0); HGB 8.2 gm/dL (13.0-17.5); Hypochromasia Marked; Lymphocytes # (A) 1.2 k/uL (1.0-4.8); Lymphocytes % (A) 6 %; MCH 27.9 pg (25.0-35.0); MCV 90.1 fL (80.0-100.0); Mean Platelet Volume 8.8; Monocytes # (A) 0.6 k/uL (0-1.0); Monocytes % (A) 3 %; Neutrophils # (A) 19.2 k/uL (1.3-7.7); Neutrophils % (A) 89 %; Platelet Count 214 k/uL (150-450); RBC 2.95 m/uL (4.30-5.90); WBC 21.5 k/uL (3.8-10.6)
--- NOTE | 2024-08-04 10:41 | P.PN ---
Subjective Patient is seen in follow-up for acute kidney injury on chronic kidney disease. Renal function improving. Receiving IV fluids. Nonoliguric. Poor historian. Vital signs are stable. General: No acute distress. HEENT: Head exam is unremarkable. LUNGS: No audible rhonchi or wheezes. HEART: Rate and Rhythm are regular. ABDOMEN: Nontender. EXTREMITITES: 1+ edema left lower extremity. Chronic changes noted. Objective - Vital Signs Vital signs: Vital Signs Temp 99.1 F 08/04/24 08:50 Pulse 70 08/04/24 08:50 Resp 17 08/04/24 08:50 BP 180/86 08/04/24 08:50 Pulse Ox 100 08/04/24 08:50 FiO2 Intake & Output 08/03/24 08/04/24 08/04/24 18:59 06:59 18:59 Intake Total 360 180 Output Total 550 850 Balance -190 -850 180 Intake: Oral 360 180 Output: Urine 550 850 Other: Voiding Method Indwelling Catheter Indwelling Catheter Indwelling Catheter # Bowel Movements 1 1 - Labs CBC & Chem 7: 08/04/24 07:47 08/04/24 07:47 Labs: Abnormal Lab Results - Last 24 Hours (Table) 08/03/24 08/03/24 08/03/24 Range/Units 06:10 16:24 20:13 WBC (3.8-10.6) k/uL RBC (4.30-5.90) m/uL Hgb (13.0-17.5) gm/dL Hct (39.0-53.0) % RDW (11.5-15.5) % Neutrophils # 25.7 H (1.3-7.7) k/uL Chloride (98-107) mmol/L Carbon Dioxide (22-30) mmol/L BUN (9-20) mg/dL Creatinine (0.66-1.25) mg/dL POC Glucose (mg/dL) 144 H 118 H (70-110) mg/dL 08/04/24 08/04/24 Range/Units 07:47 07:47 WBC 21.5 H (3.8-10.6) k/uL RBC 2.95 L (4.30-5.90) m/uL Hgb 8.2 L (13.0-17.5) gm/dL Hct 26.6 L (39.0-53.0) % RDW 17.0 H (11.5-15.5) % Neutrophils # 19.2 H (1.3-7.7) k/uL Chloride 113 H (98-107) mmol/L Carbon Dioxide 19 L (22-30) mmol/L BUN 49 H (9-20) mg/dL Creatinine 2.94 H (0.66-1.25) mg/dL POC Glucose (mg/dL) (70-110) mg/dL Microbiology - Last 24 Hours (Table) 07/31/24 17:00 Blood Culture - Preliminary Blood Assessment and Plan Plan: Assessment: 1. Acute kidney injury secondary to ATN secondary to severe sepsis. Renal fun ction improving. Creatinine 2.94. 2. Chronic kidney disease stage IV baseline creatinine 3.1-3.4 secondary to diabetic kidney disease. 3. Diabetes mellitus. 4. Hypertension with chronic kidney disease. 5. UTI on antibiotics. 6. Hypokalemia from poor intake. Replaced. Better. 7. Anemia of chronic kidney disease. Iron deficiency noted. 8. Metabolic acidosis secondary to chronic kidney disease and IV fluids. On oral bicarb. Plan: Maintain IV fluids. Decrease rate to 50 cc an hour. Maintain IV iron. Add amlodipine 5 mg once daily. Add as needed hydralazine. Avoid nephrotoxins. DC'ed Fleet enemas. Continue to monitor renal function and urine output. Repeat BMP and magnesium level 2 to 3 days postdischarge. Follow-up outpatient in 1 week.
[2024-08-04] MEDS: amLODIPine 5 MG TAB PO SCH (11:09)
[2024-08-04 11:39] LABS: Glucose,Whole Blood 104 mg/dL (70-110)
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
--- NOTE | 2024-08-04 12:01 | P.PN ---
Subjective Progress Note Date: 08/04/24 Principal diagnosis: Reason for follow-up is possible pneumonia/leukocytosis Patient is a 74-year-old -Taiwanese male with a past medical history significant for diabetes mellitus hypertension hyperlipidemia osteoarthritis CVA TIA in this patient who is a longterm resident patient has been brought into the hospital concerning for increasing confusion and fever patient has been diagnosed with sepsis possible related to the pneumonia less likely UTI. On today's evaluation that is 08/04/2024,the patient remains to be afebrile, patient is on room air not requiring supplemental oxygen and denies any shortness of breath no chest pain or any worsening cough.Patient denies having any nausea or vomiting, no abdominal pain and no diarrhea has been reported. Patient white count is down to 21.5, creatinine is 2.94 stool for C. difficile negative Objective - Vital Signs Vital signs: Vital Signs Temp 99.1 F 08/04/24 08:50 Pulse 70 08/04/24 08:50 Resp 17 08/04/24 08:50 BP 180/86 08/04/24 08:50 Pulse Ox 100 08/04/24 08:50 FiO2 Intake & Output 08/03/24 08/04/24 08/04/24 18:59 06:59 18:59 Intake Total 360 180 Output Total 550 850 Balance -190 -850 180 Intake: Oral 360 180 Output: Urine 550 850 Other: Voiding Method Indwelling Catheter Indwelling Catheter Indwelling Catheter # Bowel Movements 1 1 - Exam GENERAL DESCRIPTION: An elderly male lying in bed in no distress RESPIRATORY SYSTEM: Unlabored breathing , decreased breath sounds at bases HEART: S1 S2 regular rate and rhythm , ABDOMEN: Soft , no tenderness EXTREMITIES: No edema feet - Labs CBC & Chem 7: 08/04/24 07:47 08/04/24 07:47 Labs: Abnormal Lab Results - Last 24 Hours (Table) 08/03/24 08/03/24 08/03/24 Range/Units 06:10 16:24 20:13 WBC (3.8-10.6) k/uL RBC (4.30-5.90) m/uL Hgb (13.0-17.5) gm/dL Hct (39.0-53.0) % RDW (11.5-15.5) % Neutrophils # 25.7 H (1.3-7.7) k/uL Chloride (98-107) mmol/L Carbon Dioxide (22-30) mmol/L BUN (9-20) mg/dL Creatinine (0.66-1.25) mg/dL POC Glucose (mg/dL) 144 H 118 H (70-110) mg/dL 08/04/24 08/04/24 Range/Units 07:47 07:47 WBC 21.5 H (3.8-10.6) k/uL RBC 2.95 L (4.30-5.90) m/uL Hgb 8.2 L (13.0-17.5) gm/dL Hct 26.6 L (39.0-53.0) % RDW 17.0 H (11.5-15.5) % Neutrophils # 19.2 H (1.3-7.7) k/uL Chloride 113 H (98-107) mmol/L Carbon Dioxide 19 L (22-30) mmol/L BUN 49 H (9-20) mg/dL Creatinine 2.94 H (0.66-1.25) mg/dL POC Glucose (mg/dL) (70-110) mg/dL Microbiology - Last 24 Hours (Table) 07/31/24 17:00 Blood Culture - Preliminary Blood Assessment and Plan (1) Sepsis Current Visit: Yes Status: Acute Code(s): A41.9 - SEPSIS, UNSPECIFIED ORGANISM SNOMED Code(s): 81723215 (2) Pneumonia Current Visit: No Status: Acute Code(s): J18.9 - PNEUMONIA, UNSPECIFIED ORGANISM SNOMED Code(s): 744156887 Plan: 1patient presented to hospital with sepsis in this patient who did have fever elevated white count source is likely pneumonia as patient did have significant respiratory symptom of cough with sputum production and longterm resident will need to cover for resistant gram-negative to be the likely pathogen did have a positive UA urinary source less likely 2patient with renal insufficiency high risk of nephrotoxicity from vancomycin. 3sputum has not been collected and procalcitonin was more than 100 4patient did have resolution of his fever and white count is slowly trending down, down to 21,000 today, we will continue with Zosyn and needed to continue with IV antibiotic on discharge Dictation was produced using [employer] dictation software. please excuse any grammatical, word or spelling errors. Time with Patient: Less than 30
[2024-08-04] MEDS: hydrALAZINE HCL 20 MG/ML 1 ML VIAL IVP PRN (14:30)
[2024-08-04 16:26] LABS: Glucose,Whole Blood 98 mg/dL (70-110)
[2024-08-04 19:48] LABS: Glucose,Whole Blood 96 mg/dL (70-110)
[2024-08-05 06:16] LABS: Glucose,Whole Blood 162 mg/dL (70-110)
[2024-08-05 06:50] LABS: Anisocytosis Slight; Basophils # (A) 0.1 k/uL (0-0.2); Basophils % (A) 0 %; Eosinophils # (A) 0.1 k/uL (0-0.7); Eosinophils % (A) 1 %; HCT 27.9 % (39.0-53.0); HGB 8.2 gm/dL (13.0-17.5); Hypochromasia Marked; Lymphocytes % (A) 6 %; MCH 26.9 pg (25.0-35.0); MCHC 29.3 g/dL (31.0-37.0); MCV 91.7 fL (80.0-100.0); Mean Platelet Volume 9.2; Monocytes # (A) 0.9 k/uL (0-1.0); Monocytes % (A) 5 %; Neutrophils # (A) 15.5 k/uL (1.3-7.7); Neutrophils % (A) 86 %; Platelet Count 235 k/uL (150-450); RBC 3.04 m/uL (4.30-5.90); RDW 17.1 % (11.5-15.5); WBC 17.9 k/uL (3.8-10.6)
[2024-08-05 07:03] LABS: African American GFR (CKD) 28 (>60 ml/min/1.73 sqM); Anion Gap 8 mmol/L; Blood Urea Nitrogen 39 mg/dL (9-20); Calcium 8.9 mg/dL (8.4-10.2); Carbon Dioxide 16 mmol/L (22-30); Chloride 116 mmol/L (98-107); Glucose 143 mg/dL (74-99); Magnesium 1.8 mg/dL (1.6-2.3); Non-African American GFR(CKD) 24 (>60 ml/min/1.73 sqM); Potassium 3.5 mmol/L (3.5-5.1); Sodium 140 mmol/L (137-145)
--- NOTE | 2024-08-05 09:27 | P.PN ---
Subjective Patient is seen in follow-up for acute kidney injury on chronic kidney disease. Renal function improving. Receiving IV fluids. Nonoliguric. States he vomited this morning. Vital signs are stable. General: No acute distress. HEENT: Head exam is unremarkable. LUNGS: No audible rhonchi or wheezes. HEART: Rate and Rhythm are regular. ABDOMEN: Nontender. EXTREMITITES: 1+ edema left lower extremity. Chronic changes noted. Objective - Vital Signs Vital signs: Vital Signs Temp 97.9 F 08/05/24 03:47 Pulse 83 08/05/24 03:47 Resp 16 08/05/24 03:47 BP 169/82 08/05/24 03:47 Pulse Ox 99 08/05/24 03:47 FiO2 Intake & Output 08/04/24 08/05/24 08/05/24 18:59 06:59 18:59 Intake Total 360 222 Output Total 280 595 2520 Balance -540 -739 -157 Weight 100.5 kg Intake: Oral 360 222 Output: Urine 057 564 1660 Other: Voiding Method Indwelling Catheter Indwelling Catheter # Bowel Movements 1 1 - Labs CBC & Chem 7: 08/05/24 06:39 08/05/24 06:39 Labs: Abnormal Lab Results - Last 24 Hours (Table) 08/05/24 08/05/24 08/05/24 Range/Units 06:13 06:39 06:39 WBC 17.9 H (3.8-10.6) k/uL RBC 3.04 L (4.30-5.90) m/uL Hgb 8.2 L (13.0-17.5) gm/dL Hct 27.9 L (39.0-53.0) % MCHC 29.3 L (31.0-37.0) g/dL RDW 17.1 H (11.5-15.5) % Neutrophils # 15.5 H (1.3-7.7) k/uL Chloride 116 H (98-107) mmol/L Carbon Dioxide 16 L (22-30) mmol/L BUN 39 H (9-20) mg/dL Creatinine 2.58 H (0.66-1.25) mg/dL Glucose 143 H (74-99) mg/dL POC Glucose (mg/dL) 162 H (70-110) mg/dL Assessment and Plan Plan: Assessment: 1. Acute kidney injury secondary to ATN secondary to severe sepsis. Renal function improving. Creatinine 2.58. 2. Chronic kidney disease stage IV baseline creatinine 3.1-3.4 secondary to diabetic kidney disease. 3. Diabetes mellitus. 4. Hypertension with chronic kidney disease. 5. UTI on antibiotics. 6. Hypokalemia from poor intake. 7. Anemia of chronic kidney disease. Iron deficiency noted. 8. Metabolic acidosis secondary to chronic kidney disease and IV fluids. On oral bicarb. Plan: Change IV fluids to bicarb drip. Replace potassium. Maintain IV iron. Avoid nephrotoxins. DC'ed Fleet enemas. Continue to monitor renal function and urine output. Repeat BMP and magnesium level 2 to 3 days postdischarge. Follow-up outpatient in 1 week.
[2024-08-05] MEDS: POTASSIUM CHLORIDE ER 20 MEQ TAB.ER PO STA (09:44)
[2024-08-05 11:29] LABS: Glucose,Whole Blood 130 mg/dL (70-110)
[2024-08-05] MEDS: DEXTROSE 5% IN WATER 1,000 ML with SODIUM BICARB (1 MEQ/ML) 150 ML IV SCH (12:25)
[2024-08-05] MEDS: SODIUM BICARB 8.4% 50 ML SYR (1 MEQ/ML) IV STA (12:30)
--- NOTE | 2024-08-05 15:50 | P.PN ---
Subjective Progress Note Date: 08/05/24 Principal diagnosis: Reason for follow-up is possible pneumonia/leukocytosis Patient is a 74-year-old -Palest[place] male with a past medical history significant for diabetes mellitus hypertension hyperlipidemia osteoarthritis CVA TIA in this patient who is a [facility] resident patient has been brought into the hospital concerning for increasing confusion and fever patient has been diagnosed with sepsis possible related to the pneumonia less likely UTI. On today's evaluation that is 08/05/2024, the patient continues to be afebrile, the patient is on room air and breathing comfortably, the Pt denies having any chest pain or any worsening cough, the patient denies having any abdominal pain no vomiting or any diarrhea has been reported by the nursing staff. Patient white count is down to 79, creatinine 2.58 blood culture have been negative so far Objective - Vital Signs Vital signs: Vital Signs Temp 99.1 F 08/05/24 09:30 Pulse 82 08/05/24 09:30 Resp 16 08/05/24 09:30 BP 194/84 08/05/24 09:30 Pulse Ox 99 08/05/24 09:30 FiO2 Intake & Output 08/04/24 08/05/24 08/05/24 18:59 06:59 18:59 Intake Total 360 340 Output Total 175 766 3793 Balance -540 -725 -1110 Weight 100.5 kg Intake: Oral 360 340 Output: Urine 458 183 0807 Other: Voiding Method Indwelling Catheter Indwelling Catheter Indwelling Catheter # Bowel Movements 1 1 1 - Exam GENERAL DESCRIPTION: An elderly male lying in bed in no distress RESPIRATORY SYSTEM: Unlabored breathing , decreased breath sounds at bases HEART: S1 S2 regular rate and rhythm , ABDOMEN: Soft , no tenderness EXTREMITIES: No edema feet - Labs CBC & Chem 7: 08/05/24 06:39 08/05/24 06:39 Labs: Abnormal Lab Results - Last 24 Hours (Table) 08/05/24 08/05/24 08/05/24 Range/Units 06:13 06:39 06:39 WBC 17.9 H (3.8-10.6) k/uL RBC 3.04 L (4.30-5.90) m/uL Hgb 8.2 L (13.0-17.5) gm/dL Hct 27.9 L (39.0-53.0) % MCHC 29.3 L (31.0-37.0) g/dL RDW 17.1 H (11.5-15.5) % Neutrophils # 15.5 H (1.3-7.7) k/uL Chloride 116 H (98-107) mmol/L Carbon Dioxide 16 L (22-30) mmol/L BUN 39 H (9-20) mg/dL Creatinine 2.58 H (0.66-1.25) mg/dL Glucose 143 H (74-99) mg/dL POC Glucose (mg/dL) 162 H (70-110) mg/dL 08/05/24 Range/Units 11:28 WBC (3.8-10.6) k/uL RBC (4.30-5.90) m/uL Hgb (13.0-17.5) gm/dL Hct (39.0-53.0) % MCHC (31.0-37.0) g/dL RDW (11.5-15.5) % Neutrophils # (1.3-7.7) k/uL Chloride (98-107) mmol/L Carbon Dioxide (22-30) mmol/L BUN (9-20) mg/dL Creatinine (0.66-1.25) mg/dL Glucose (74-99) mg/dL POC Glucose (mg/dL) 130 H (70-110) mg/dL Assessment and Plan (1) Sepsis Current Visit: Yes Status: Acute Code(s): A41.9 - SEPSIS, UNSPECIFIED ORGANISM SNOMED Code(s): 58429205 (2) Pneumonia Current Visit: No Status: Acute Code(s): J18.9 - PNEUMONIA, UNSPECIFIED ORGANISM SNOMED Code(s): 591893861 Plan: 1patient presented to hospital with sepsis in this patient who did have fever elevated white count source is likely pneumonia as patient did have significant respiratory symptom of cough with sputum production and [facility] resident will need to cover for resistant gram-negative to be the likely pathogen did h ave a positive UA urinary source less likely 2patient with renal insufficiency high risk of nephrotoxicity from vancomycin. 3sputum has not been collected and procalcitonin was more than 100 4patient did have resolution of his fever and white count is slowly trending down, we will order a midline for outpatient IV antibiotics continue with Zosyn Dictation was produced using [employer] dictation software. please excuse any grammatical, word or spelling errors. Time with Patient: Less than 30
[2024-08-05] MEDS: ACETAMINOPHEN TAB 325 MG TAB PO PRN (16:18)
[2024-08-05 16:25] LABS: Glucose,Whole Blood 146 mg/dL (70-110)
[2024-08-05] MEDS: PIPERACILLIN-TAZOBACTAM 3.375 GM in SODIUM CHLORIDE 0.9% 100 ML IVPB SCH (16:30)
[2024-08-05 19:48] LABS: Glucose,Whole Blood 170 mg/dL (70-110)
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
[2024-08-06 06:07] LABS: Glucose,Whole Blood 154 mg/dL (70-110)
[2024-08-06 08:26] LABS: Anisocytosis Slight; Basophils # (A) 0.1 k/uL (0-0.2); Basophils % (A) 1 %; Eosinophils # (A) 0.2 k/uL (0-0.7); Eosinophils % (A) 1 %; HCT 27.5 % (39.0-53.0); HGB 8.3 gm/dL (13.0-17.5); Hypochromasia Moderate; Lymphocytes % (A) 7 %; MCH 26.9 pg (25.0-35.0); MCHC 30.1 g/dL (31.0-37.0); MCV 89.4 fL (80.0-100.0); Mean Platelet Volume 9.1; Monocytes # (A) 0.9 k/uL (0-1.0); Monocytes % (A) 6 %; Neutrophils # (A) 12.4 k/uL (1.3-7.7); Neutrophils % (A) 84 %; Platelet Count 279 k/uL (150-450); RBC 3.08 m/uL (4.30-5.90); RDW 17.6 % (11.5-15.5); WBC 14.9 k/uL (3.8-10.6)
[2024-08-06 08:44] LABS: African American GFR (CKD) 31 (>60 ml/min/1.73 sqM); Anion Gap 9 mmol/L; Blood Urea Nitrogen 33 mg/dL (9-20); Carbon Dioxide 22 mmol/L (22-30); Chloride 114 mmol/L (98-107); Glucose 125 mg/dL (74-99); Non-African American GFR(CKD) 27 (>60 ml/min/1.73 sqM); Potassium 3.7 mmol/L (3.5-5.1); Sodium 145 mmol/L (137-145)
--- NOTE | 2024-08-06 09:50 | P.PN ---
Subjective Patient is seen in follow-up for acute kidney injury on chronic kidney disease. Renal function improving. On bicarb drip. Acidosis improved. Nonoliguric. Oral intake fair. Vital signs are stable. General: No acute distress. HEENT: Head exam is unremarkable. LUNGS: No audible rhonchi or wheezes. HEART: Rate and Rhythm are regular. ABDOMEN: Nontender. EXTREMITITES: 1+ edema left lower extremity. Chronic changes noted. Objective - Vital Signs Vital signs: Vital Signs Temp 98.8 F 08/06/24 08:03 Pulse 80 08/06/24 08:03 Resp 16 08/06/24 08:03 BP 192/71 08/06/24 08:03 Pulse Ox 97 08/06/24 08:03 FiO2 Intake & Output 08/05/24 08/06/24 08/06/24 18:59 06:59 18:59 Intake Total 562 540 236 Output Total 2000 800 300 Balance -1438 -260 -64 Weight 100.5 kg Intake: Oral 562 540 236 Output: Urine 2000 800 300 Other: Voiding Method Indwelling Catheter Indwelling Catheter # Bowel Movements 1 - Labs CBC & Chem 7: 08/06/24 06:56 08/06/24 06:56 Labs: Abnormal Lab Results - Last 24 Hours (Table) 08/05/24 08/05/24 08/05/24 Range/Units 11:28 16:23 19:47 WBC (3.8-10.6) k/uL RBC (4.30-5.90) m/uL Hgb (13.0-17.5) gm/dL Hct (39.0-53.0) % MCHC (31.0-37.0) g/dL RDW (11.5-15.5) % Neutrophils # (1.3-7.7) k/uL Chloride (98-107) mmol/L BUN (9-20) mg/dL Creatinine (0.66-1.25) mg/dL Glucose (74-99) mg/dL POC Glucose (mg/dL) 130 H 146 H 170 H (70-110) mg/dL 08/06/24 08/06/24 08/06/24 Range/Units 06:06 06:56 06:56 WBC 14.9 H (3.8-10.6) k/uL RBC 3.08 L (4.30-5.90) m/uL Hgb 8.3 L (13.0-17.5) gm/dL Hct 27.5 L (39.0-53.0) % MCHC 30.1 L (31.0-37.0) g/dL RDW 17.6 H (11.5-15.5) % Neutrophils # 12.4 H (1.3-7.7) k/uL Chloride 114 H (98-107) mmol/L BUN 33 H (9-20) mg/dL Creatinine 2.34 H (0.66-1.25) mg/dL Glucose 125 H (74-99) mg/dL POC Glucose (mg/dL) 154 H (70-110) mg/dL Microbiology - Last 24 Hours (Table) 07/31/24 17:00 Blood Culture - Final Blood Assessment and Plan Plan: Assessment: 1. Acute kidney injury secondary to ATN secondary to severe sepsis. Renal function improving. Creatinine 2.34. 2. Chronic kidney disease stage IV baseline creatinine 3.1-3.4 secondary to diabetic kidney disease. 3. Diabetes mellitus. 4. Hypertension with chronic kidney disease. 5. UTI on antibiotics. 6. Hypokalemia from poor intake. 7. Anemia of chronic kidney disease. Iron deficiency noted. 8. Metabolic acidosis secondary to chronic kidney disease and IV fluids. On bicarb drip. Also on oral bicarb. Plan: Hep-Lock IV fluids. Maintain IV iron. Avoid nephrotoxins. DC'ed Fleet enemas. Continue to monitor renal function and urine output. Increase amlodipine to 5 mg twice daily. Add scheduled hydralazine. Hold for systolic blood pressure less than 120. Repeat BMP and magnesium level 2 to 3 days postdischarge. Follow-up outpatient in 1 week.
[2024-08-06] MEDS: hydrALAZINE HCL 50 MG TAB PO SCH (10:17)
[2024-08-06 11:21] LABS: Glucose,Whole Blood 146 mg/dL (70-110)
--- NOTE | 2024-08-06 13:01 | P.PN ---
Subjective Progress Note Date: 08/06/24 Principal diagnosis: Reason for follow-up is possible pneumonia/leukocytosis Patient is a 74-year-old -[place] male with a past medical history significant for diabetes mellitus hypertension hyperlipidemia osteoarthritis CVA TIA in this patient who is a [facility] resident patient has been brought into the hospital concerning for increasing confusion and fever patient has been diagnosed with sepsis possible related to the pneumonia less likely UTI. On today's evaluation that is 08/06/2024, Patient is afebrile patient is currently on room air and denies having any shortness of breath, the patient denies any chest pain or any worsening cough, the patient denies any nausea vomiting did not have any abdominal pain and no diarrhea. Patient white count is 14.8, creatinine is 2.34 Objective - Vital Signs Vital signs: Vital Signs Temp 98.8 F 08/06/24 08:03 Pulse 80 08/06/24 08:03 Resp 16 08/06/24 08:03 BP 192/71 08/06/24 08:03 Pulse Ox 97 08/06/24 08:03 FiO2 Intake & Output 08/05/24 08/06/24 08/06/24 18:59 06:59 18:59 Intake Total 562 540 236 Output Total 2000 800 300 Balance -1438 -260 -64 Weight 100.5 kg Intake: Oral 562 540 236 Output: Urine 2000 800 300 Other: Voiding Method Indwelling Catheter Indwelling Catheter Indwelling Catheter # Bowel Movements 1 - Exam GENERAL DESCRIPTION: An elderly male lying in bed in no distress RESPIRATORY SYSTEM: Unlabored breathing , decreased breath sounds at bases HEART: S1 S2 regular rate and rhythm , ABDOMEN: Soft , no tenderness EXTREMITIES: No edema feet - Labs CBC & Chem 7: 08/06/24 06:56 08/06/24 06:56 Labs: Abnormal Lab Results - Last 24 Hours (Table) 08/05/24 08/05/24 08/05/24 Range/Units 11:28 16:23 19:47 WBC (3.8-10.6) k/uL RBC (4.30-5.90) m/uL Hgb (13.0-17.5) gm/dL Hct (39.0-53.0) % MCHC (31.0-37.0) g/dL RDW (11.5-15.5) % Neutrophils # (1.3-7.7) k/uL Chloride (98-107) mmol/L BUN (9-20) mg/dL Creatinine (0.66-1.25) mg/dL Glucose (74-99) mg/dL POC Glucose (mg/dL) 130 H 146 H 170 H (70-110) mg/dL 08/06/24 08/06/24 08/06/24 Range/Units 06:06 06:56 06:56 WBC 14.9 H (3.8-10.6) k/uL RBC 3.08 L (4.30-5.90) m/uL Hgb 8.3 L (13.0-17.5) gm/dL Hct 27.5 L (39.0-53.0) % MCHC 30.1 L (31.0-37.0) g/dL RDW 17.6 H (11.5-15.5) % Neutrophils # 12.4 H (1.3-7.7) k/uL Chloride 114 H (98-107) mmol/L BUN 33 H (9-20) mg/dL Creatinine 2.34 H (0.66-1.25) mg/dL Glucose 125 H (74-99) mg/dL POC Glucose (mg/dL) 154 H (70-110) mg/dL Microbiology - Last 24 Hours (Table) 07/31/24 17:00 Blood Culture - Final Blood Assessment and Plan (1) Sepsis Current Visit: Yes Status: Acute Code(s): A41.9 - SEPSIS, UNSPECIFIED ORGANISM SNOMED Code(s): 78321993 (2) Pneumonia Current Visit: No Status: Acute Code(s): J18.9 - PNEUMONIA, UNSPECIFIED ORGANISM SNOMED Code(s): 425101474 Plan: 1patient presented to hospital with sepsis in this patient who did have fever elevated white count source is likely pneumonia as patient did have significant respiratory symptom of cough with sputum production and [facility] resident will need to cover for resistant gram-negative to be the likely pathogen did have a positive UA urinary source less likely 2patient with renal insufficiency high risk of nephrotoxicity from vancomycin. 3sputum has not been collected and procalcitonin was more than 100 4patient did have resolution of his fever and white count is slowly trending down with Zosyn with no culture data to help transition to oral antibiotics will consider Zosyn on discharge Dictation was produced using [employer] software. please excuse any gramm atical, word or spelling errors. Time with Patient: Less than 30
[2024-08-06 14:40] VITALS: BMI 32.7
[2024-08-06 16:25] LABS: Glucose,Whole Blood 193 mg/dL (70-110)
[2024-08-06 20:06] LABS: Glucose,Whole Blood 182 mg/dL (70-110)
[2024-08-06] MEDS: amLODIPine 5 MG TAB PO SCH (20:09)
[2024-08-07 06:11] LABS: Glucose,Whole Blood 93 mg/dL (70-110)
--- NOTE | 2024-08-07 08:52 | P.PN ---
Subjective Patient is seen in follow-up for acute kidney injury on chronic kidney disease. Renal function improving. Off IV fluids. Nonoliguric. Oral intake fair. Nauseated this morning. Vital signs are stable. General: No acute distress. HEENT: Head exam is unremarkable. LUNGS: No audible rhonchi or wheezes. HEART: Rate and Rhythm are regular. ABDOMEN: Nontender. EXTREMITITES: 1+ edema. Chronic changes noted. Objective - Vital Signs Vital signs: Vital Signs Temp 99.3 F 08/06/24 20:00 Pulse 76 08/07/24 04:00 Resp 16 08/07/24 04:00 BP 193/88 08/07/24 04:00 Pulse Ox 100 08/07/24 04:00 FiO2 Intake & Output 08/06/24 08/07/24 08/07/24 18:59 06:59 18:59 Intake Total 458 1080 Output Total 800 Balance -342 1080 Weight 100.5 kg 99.5 kg Intake: Oral 458 1080 Output: Urine 800 Other: Voiding Method Indwelling Catheter Indwelling Catheter # Bowel Movements 1 - Labs CBC & Chem 7: 08/06/24 06:56 08/06/24 06:56 Labs: Abnormal Lab Results - Last 24 Hours (Table) 08/06/24 08/06/24 08/06/24 Range/Units 11:19 16:23 20:05 POC Glucose (mg/dL) 146 H 193 H 182 H (70-110) mg/dL Assessment and Plan Plan: Assessment: 1. Acute kidney injury secondary to ATN secondary to severe sepsis. Renal function improving. Creatinine 2.34 yesterday. 2. Chronic kidney disease stage IV baseline creatinine 3.1-3.4 secondary to diabetic kidney disease. 3. Diabetes mellitus. 4. Hypertension with chronic kidney disease. Exacerbated by nausea/vomiting. 5. UTI on antibiotics. 6. Hypokalemia from poor intake. Replaced. 7. Anemia of chronic kidney disease. Iron deficiency noted. Status post IV iron completed August 06, 2024. 8. Metabolic acidosis secondary to chronic kidney disease and IV fluids. Status post bicarb drip. Now on oral bicarb. 9. Lower extremity edema. Plan: Lasix 40 mg IV once today. Avoid nephrotoxins. DC'ed Fleet enemas. Continue to monitor renal function and urine output. Amlodipine increased to 10 mg daily August 06, 2024. Scheduled hydralazine also added yesterday. Increase dose to 100 mg. Maintain as needed hydralazine. Hold for systolic blood pressure less than 120. Repeat BMP and magnesium level 2 to 3 days postdischarge. Follow-up outpatient in 1 week.
[2024-08-07] MEDS: FUROSEMIDE 10 MG/ML 4 ML VIAL IV STA (09:18)
[2024-08-07] MEDS: hydrALAZINE HCL 50 MG TAB PO SCH (09:19)
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
[2024-08-07] MEDS: ONDANSETRON 4 MG/2 ML VIAL IVP PRN (10:47)
[2024-08-07 11:22] LABS: Glucose,Whole Blood 81 mg/dL (70-110)
--- NOTE | 2024-08-07 13:48 | P.PN ---
Subjective Progress Note Date: 08/07/24 Principal diagnosis: Reason for follow-up is possible pneumonia/leukocytosis Patient is a 74-year-old -Spanish male with a past medical history significant for diabetes mellitus hypertension hyperlipidemia osteoarthritis CVA TIA in this patient who is a group home resident patient has been brought into the hospital concerning for increasing confusion and fever patient has been diagnosed with sepsis possible related to the pneumonia less likely UTI. On today's evaluation that is 08/07/2024, patient has been afebrile, patient is breathing comfortably and is currently on room air, patient denies having any worsening cough or sputum production, no chest pain, patient denies nausea vomiting or diarrhea and no abdominal pain. No new lab has been obtained today Objective - Vital Signs Vital signs: Vital Signs Temp 98.4 F 08/07/24 12:00 Pulse 70 08/07/24 12:00 Resp 17 08/07/24 12:00 BP 183/84 08/07/24 12:00 Pulse Ox 100 08/07/24 12:00 FiO2 Intake & Output 08/06/24 08/07/24 08/07/24 18:59 06:59 18:59 Intake Total 458 1080 790 Output Total 800 800 Balance -342 1080 -10 Weight 100.5 kg 99.5 kg Intake: Oral 458 1080 790 Output: Urine 800 800 Other: Voiding Method Indwelling Catheter Indwelling Catheter Indwelling Catheter # Bowel Movements 1 - Exam GENERAL DESCRIPTION: An elderly male lying in bed in no distress RESPIRATORY SYSTEM: Unlabored breathing , decreased breath sounds at bases HEART: S1 S2 regular rate and rhythm , ABDOMEN: Soft , no tenderness EXTREMITIES: No edema feet - Labs CBC & Chem 7: 08/06/24 06:56 08/06/24 06:56 Labs: Abnormal Lab Results - Last 24 Hours (Table) 08/06/24 08/06/24 Range/Units 16:23 20:05 POC Glucose (mg/dL) 193 H 182 H (70-110) mg/dL Assessment and Plan (1) Sepsis Current Visit: Yes Status: Acute Code(s): A41.9 - SEPSIS, UNSPECIFIED ORGANISM SNOMED Code(s): 40610811 (2) Pneumonia Current Visit: No Status: Acute Code(s): J18.9 - PNEUMONIA, UNSPECIFIED ORGANISM SNOMED Code(s): 884536982 Plan: 1patient presented to hospital with sepsis in this patient who did have fever elevated white count source is likely pneumonia as patient did have significant respiratory symptom of cough with sputum production and group home resident will need to cover for resistant gram-negative to be the likely pathogen did have a positive UA urinary source less likely 2sputum has not been collected and procalcitonin was more than 100 4patient did have resolution of his fever and white count is slowly trending down as of yesterday no CBC was done today we will continue with the with Zosyn and repeat a CBC with a.m. lab Dictation was produced using [employer] dictation software. please excuse any grammatical, word or spelling errors. Time with Patient: Less than 30
[2024-08-07 16:48] LABS: Glucose,Whole Blood 99 mg/dL (70-110)
[2024-08-07 20:19] LABS: Glucose,Whole Blood 122 mg/dL (70-110)
[2024-08-07] MEDS: PANTOPRAZOLE 40 MG/10 ML VIAL IVP SCH (20:43)
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
[2024-08-08 06:20] LABS: Glucose,Whole Blood 55 mg/dL (70-110)
[2024-08-08 06:37] LABS: Glucose,Whole Blood 63 mg/dL (70-110)
[2024-08-08 06:56] LABS: Glucose,Whole Blood 83 mg/dL (70-110)
[2024-08-08 09:03] LABS: Anisocytosis Slight; HCT 26.3 % (39.0-53.0); HGB 8.4 gm/dL (13.0-17.5); Hypochromasia Marked; MCH 28.9 pg (25.0-35.0); MCHC 31.9 g/dL (31.0-37.0); MCV 90.6 fL (80.0-100.0); Mean Platelet Volume 10.3; Platelet Count 347 k/uL (150-450); RDW 18.1 % (11.5-15.5); WBC 18.4 k/uL (3.8-10.6)
--- NOTE | 2024-08-08 09:18 | P.PN ---
Subjective Patient is seen in follow-up for acute kidney injury on chronic kidney disease. Renal function improving. Creatinine 2.34 dated August 06, 2024. Nonoliguric. Oral intake fair. Vital signs are stable. General: No acute distress. HEENT: Head exam is unremarkable. LUNGS: No audible rhonchi or wheezes. HEART: Rate and Rhythm are regular. ABDOMEN: Nontender. EXTREMITITES: 1+ edema. Chronic changes noted. Objective - Vital Signs Vital signs: Vital Signs Temp 98 F 08/08/24 07:50 Pulse 70 08/08/24 07:50 Resp 17 08/08/24 07:50 BP 150/78 08/08/24 07:50 Pulse Ox 100 08/08/24 07:50 FiO2 Intake & Output 08/07/24 08/08/24 08/08/24 18:59 06:59 18:59 Intake Total 790 540 20 Output Total 1375 700 Balance -585 540 -680 Weight 99 kg Intake: IV 20 Invasive Line 4 10 Invasive Line 5 10 Oral 790 540 Output: Urine 1375 700 Other: Voiding Method Indwelling Catheter Indwelling Catheter - Labs CBC & Chem 7: 08/08/24 08:30 08/06/24 06:56 Labs: Abnormal Lab Results - Last 24 Hours (Table) 08/07/24 08/08/24 08/08/24 Range/Units 20:17 06:16 06:34 WBC (3.8-10.6) k/uL RBC (4.30-5.90) m/uL Hgb (13.0-17.5) gm/dL Hct (39.0-53.0) % RDW (11.5-15.5) % POC Glucose (mg/dL) 122 H 55 L 63 L (70-110) mg/dL 08/08/24 Range/Units 08:30 WBC 18.4 H (3.8-10.6) k/uL RBC 2.90 L (4.30-5.90) m/uL Hgb 8.4 L (13.0-17.5) gm/dL Hct 26.3 L (39.0-53.0) % RDW 18.1 H (11.5-15.5) % POC Glucose (mg/dL) (70-110) mg/dL Assessment and Plan Plan: Assessment: 1. Acute kidney injury secondary to ATN secondary to severe sepsis. Renal function improving. Creatinine 2.34 dated August 06, 2024. 2. Chronic kidney disease stage IV baseline creatinine 3.1-3.4 secondary to diabetic kidney disease. Last creatinine 2.34 dated August 06, 2024. Will need to establish new baseline renal function. 3. Diabetes mellitus. 4. Hypertension with chronic kidney disease. Better controlled this morning. 5. UTI on antibiotics. 6. Hypokalemia from poor intake. Replaced. 7. Anemia of chronic kidney disease. Iron deficiency noted. Status post IV iron completed August 06, 2024. 8. Metabolic acidosis secondary to chronic kidney disease and IV fluids. Status post bicarb drip. Now on oral bicarb. 9. Lower extremity edema. Status post IV Lasix yesterday. Plan: Add oral Lasix 20 mg once daily. Avoid nephrotoxins. DC'ed Fleet enemas. Continue to monitor renal function and urine output. Maintain as needed hydralazine. Add Aranesp. Repeat BMP and magnesium level 2 to 3 days postdischarge. Follow-up outpatient in 1 week.
[2024-08-08 09:37] LABS: Eosinophils # (M) 0.74 k/uL (0-0.7); Lymphocytes # (M) 1.66 k/uL (1.0-4.8); Metamyelocytes # (M) 0.37 k/uL (0); Metamyelocytes % 2 %; Monocytes # (M) 0.74 k/uL (0-1.0); Myelocytes # (M) 0.18 k/uL (0); Myelocytes % 1 %; Neutrophils # (M) 15.09 k/uL (1.3-7.7); Neutrophils % (M) 82 %; Nucleated Red Blood Cells 0 /100 WBC (0-0); Total Cells Counted 200
[2024-08-08 12:12] LABS: Glucose,Whole Blood 122 mg/dL (70-110)
[2024-08-08] MEDS: FUROSEMIDE 20 MG TAB PO SCH (12:24)
[2024-08-08] MEDS: DARBEPOETIN ALFA 40 MCG/0.4 ML SYRINGE SQ SCH (12:24)
--- NOTE | 2024-08-08 15:12 | P.PN ---
Subjective Progress Note Date: 08/08/24 Principal diagnosis: Reason for follow-up is possible pneumonia/leukocytosis Patient is a 74-year-old -[place] male with a past medical history significant for diabetes mellitus hypertension hyperlipidemia osteoarthritis CVA TIA in this patient who is a retirement resident patient has been brought into the hospital concerning for increasing confusion and fever patient has been diagnosed with sepsis possible related to the pneumonia less likely UTI. On today's evaluation that is 08/08/2024, Patient is afebrile this morning patient denies having any chest pain shortness of breath or any worsening cough, the patient is currently on room air, patient denies any abdominal pain no diarrhea no nausea no vomiting. Patient white count is slightly up to 18.4 today Objective - Vital Signs Vital signs: Vital Signs Temp 98.5 F 08/08/24 12:00 Pulse 66 08/08/24 12:00 Resp 17 08/08/24 12:00 BP 162/78 08/08/24 12:00 Pulse Ox 98 08/08/24 12:00 FiO2 Intake & Output 08/07/24 08/08/24 08/08/24 18:59 06:59 18:59 Intake Total 790 540 20 Output Total 1375 700 Balance -585 540 -680 Weight 99 kg Intake: IV 20 Invasive Line 4 10 Invasive Line 5 10 Oral 790 540 Output: Urine 1375 700 Other: Voiding Method Indwelling Catheter Indwelling Catheter Indwelling Catheter - Exam GENERAL DESCRIPTION: An elderly male lying in bed in no distress RESPIRATORY SYSTEM: Unlabored breathing , decreased breath sounds at bases HEART: S1 S2 regular rate and rhythm , ABDOMEN: Soft , no tenderness EXTREMITIES: No edema feet - Labs CBC & Chem 7: 08/08/24 08:30 08/06/24 06:56 Labs: Abnormal Lab Results - Last 24 Hours (Table) 08/07/24 08/08/24 08/08/24 Range/Units 20:17 06:16 06:34 WBC (3.8-10.6) k/uL RBC (4.30-5.90) m/uL Hgb (13.0-17.5) gm/dL Hct (39.0-53.0) % RDW (11.5-15.5) % Neutrophils # (Manual) (1.3-7.7) k/uL Eosinophils # (Manual) (0-0.7) k/uL Metamyelocytes # (Man) (0) k/uL Myelocytes # (Manual) (0) k/uL POC Glucose (mg/dL) 122 H 55 L 63 L (70-110) mg/dL 08/08/24 08/08/24 Range/Units 08:30 12:10 WBC 18.4 H (3.8-10.6) k/uL RBC 2.90 L (4.30-5.90) m/uL Hgb 8.4 L (13.0-17.5) gm/dL Hct 26.3 L (39.0-53.0) % RDW 18.1 H (11.5-15.5) % Neutrophils # (Manual) 15.09 H (1.3-7.7) k/uL Eosinophils # (Manual) 0.74 H (0-0.7) k/uL Metamyelocytes # (Man) 0.37 H (0) k/uL Myelocytes # (Manual) 0.18 H (0) k/uL POC Glucose (mg/dL) 122 H (70-110) mg/dL Assessment and Plan (1) Sepsis Current Visit: Yes Status: Acute Code(s): A41.9 - SEPSIS, UNSPECIFIED [facility] SNOMED Code(s): 52985663 (2) Pneumonia Current Visit: No Status: Acute Code(s): J18.9 - PNEUMONIA, UNSPECIFIED ORGANISM SNOMED Code(s): 176788872 Plan: 1patient presented to hospital with sepsis in this patient who did have fever elevated white count source is likely pneumonia as patient did have significant respiratory symptom of cough with sputum production and retirement resident will need to cover for resistant gram-negative to be the likely pathogen did have a positive UA urinary source less likely 2sputum has not been collected and procalcitonin was more than 100 4patient did have resolution of his fever and white count slightly up today we will monitor close will repeat a chest x-ray with a.m. lab continue with Manuela Dictation was produced using [employer] dictation software. please excuse any grammatical, word or spelling errors. Time with Patient: Less than 30
[2024-08-08 15:30] LABS: African American GFR (CKD) 30 (>60 ml/min/1.73 sqM); Anion Gap 7 mmol/L; Blood Urea Nitrogen 26 mg/dL (9-20); Calcium 8.6 mg/dL (8.4-10.2); Carbon Dioxide 22 mmol/L (22-30); Chloride 110 mmol/L (98-107); Glucose 169 mg/dL (74-99); Magnesium 1.8 mg/dL (1.6-2.3); Non-African American GFR(CKD) 26 (>60 ml/min/1.73 sqM); Potassium 3.5 mmol/L (3.5-5.1); Sodium 139 mmol/L (137-145)
[2024-08-08 16:20] LABS: Glucose,Whole Blood 183 mg/dL (70-110)
--- NOTE | 2024-08-08 16:23 | XR ---
EXAMINATION TYPE: XR chest 2V DATE OF EXAM: 08/08/2024 4:17 PM COMPARISON: Chest radiographs from 07/31/2024 CLINICAL INDICATION: Male, 74 years old with history of Pneumonia follow-up; [facility] TECHNIQUE: XR chest 2V Frontal and lateral views of the chest. FINDINGS: Lungs/Pleura: Lateral view is somewhat limited. There is no evidence of pleural effusion, focal conso lidation, or pneumothorax. Pulmonary vascularity: Unremarkable. Heart/mediastinum: Cardiomediastinal silhouette is enlarged and stable. Musculoskeletal: No acute osseous pathology. Other findings: None IMPRESSION: No evidence for pneumonia. Mild cardiomegaly [facility], , 08/08/2024 4:20 PM
[2024-08-08 19:58] LABS: Glucose,Whole Blood 216 mg/dL (70-110)
[2024-08-08] MEDS: INSULIN DETEMIR (LEVEMIR) 100 UNIT/ML SYR SQ SCH (20:54)
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
[2024-08-09 06:04] LABS: Glucose,Whole Blood 122 mg/dL (70-110)
[2024-08-09 08:06] LABS: African American GFR (CKD) 27 (>60 ml/min/1.73 sqM); Anion Gap 3 mmol/L; Anisocytosis Slight; Basophils # (A) 0.1 k/uL (0-0.2); Basophils % (A) 0 %; Blood Urea Nitrogen 26 mg/dL (9-20); Calcium 8.8 mg/dL (8.4-10.2); Carbon Dioxide 23 mmol/L (22-30); Chloride 113 mmol/L (98-107); Eosinophils # (A) 0.3 k/uL (0-0.7); Eosinophils % (A) 2 %; Glucose 117 mg/dL (74-99); HCT 25.9 % (39.0-53.0); Hypochromasia Slight; Lymphocytes # (A) 1.5 k/uL (1.0-4.8); Lymphocytes % (A) 9 %; MCH 26.9 pg (25.0-35.0); MCHC 30.7 g/dL (31.0-37.0); MCV 87.6 fL (80.0-100.0); Magnesium 1.9 mg/dL (1.6-2.3); Monocytes # (A) 0.6 k/uL (0-1.0); Monocytes % (A) 4 %; Neutrophils # (A) 13.5 k/uL (1.3-7.7); Neutrophils % (A) 83 %; Non-African American GFR(CKD) 24 (>60 ml/min/1.73 sqM); Platelet Count 279 k/uL (150-450); Potassium 3.4 mmol/L (3.5-5.1); RBC 2.96 m/uL (4.30-5.90); RDW 18.2 % (11.5-15.5); Sodium 139 mmol/L (137-145); WBC 16.2 k/uL (3.8-10.6)
--- NOTE | 2024-08-09 11:21 | P.PN ---
Subjective patient is seen for follow-up for acute kidney injury and chronic kidney disease. No significant complaints today. Serum creatinine at 2.5 mg/dL. Maintained on oral Lasix at 20 mg daily. Objective - Vital Signs Vital signs: Vital Signs Temp 98.5 F 08/09/24 08:00 Pulse 69 08/09/24 08:00 Resp 16 08/09/24 08:00 BP 201/75 08/09/24 08:00 Pulse Ox 99 08/09/24 08:00 FiO2 Intake & Output 08/08/24 08/09/24 08/09/24 18:59 06:59 18:59 Intake Total 40 Output Total 700 375 Balance -660 -375 Weight 99.5 kg Intake: IV 40 Invasive Line 4 20 Invasive Line 5 20 Oral 0 Output: Urine 700 375 Other: Voiding Method Indwelling Catheter Indwelling Catheter Indwelling Catheter # Bowel Movements 1 1 - Exam patient is awake, comfortable, no acute distress. Examination of the heart S1 and S2 Examination of the lungs bilateral breath sounds are heard Abdomen is soft nontender Examination of lower extremity shows trace edema bilaterally. Patient has left upper extremity contracture. He does not move his legs much. - Labs CBC & Chem 7: 08/09/24 07:10 08/09/24 07:10 Labs: Abnormal Lab Results - Last 24 Hours (Table) 08/08/24 08/08/24 08/08/24 Range/Units 12:10 14:50 16:18 WBC (3.8-10.6) k/uL RBC (4.30-5.90) m/uL Hgb (13.0-17.5) gm/dL Hct (39.0-53.0) % MCHC (31.0-37.0) g/dL RDW (11.5-15.5) % Neutrophils # (1.3-7.7) k/uL Potassium (3.5-5.1) mmol/L Chloride 110 H (98-107) mmol/L BUN 26 H (9-20) mg/dL Creatinine 2.41 H (0.66-1.25) mg/dL Glucose 169 H (74-99) mg/dL POC Glucose (mg/dL) 122 H 183 H (70-110) mg/dL Procalcitonin (0.02-0.50) ng/mL 1108/09/24 08/09/24 Range/Units 19:55 06:01 07:10 WBC (3.8-10.6) k/uL RBC (4.30-5.90) m/uL Hgb (13.0-17.5) gm/dL Hct (39.0-53.0) % MCHC (31.0-37.0) g/dL RDW (11.5-15.5) % Neutrophils # (1.3-7.7) k/uL Potassium (3.5-5.1) mmol/L Chloride (98-107) mmol/L BUN (9-20) mg/dL Creatinine (0.66-1.25) mg/dL Glucose (74-99) mg/dL POC Glucose (mg/dL) 216 H 122 H (70-110) mg/dL Procalcitonin 5.12 H (0.02-0.50) ng/mL 08/09/24 08/09/24 Range/Units 07:10 07:10 WBC 16.2 H (3.8-10.6) k/uL RBC 2.96 L (4.30-5.90) m/uL Hgb 8.0 L (13.0-17.5) gm/dL Hct 25.9 L (39.0-53.0) % MCHC 30.7 L (31.0-37.0) g/dL RDW 18.2 H (11.5-15.5) % Neutrophils # 13.5 H (1.3-7.7) k/uL Potassium 3.4 L (3.5-5.1) mmol/L Chloride 113 H (98-107) mmol/L BUN 26 H (9-20) mg/dL Creatinine 2.59 H (0.66-1.25) mg/dL Glucose 117 H (74-99) mg/dL POC Glucose (mg/dL) (70-110) mg/dL Procalcitonin (0.02-0.50) ng/mL Assessment and Plan Assessment: 1. Acute kidney injury secondary to ATN secondary to severe sepsis. Renal function improving. Creatinine 2.34 dated August 06, 2024. 2. Chronic kidney disease stage IV baseline creatinine 3.1-3.4 secondary to diabetic kidney disease. Last creatinine 2.34 dated August 06, 2024. Will need to establish new baseline renal function. 3. Diabetes mellitus. 4. Hypertension with chronic kidney disease. Uncontrolled. Maintained on hydralazine, Norvasc and Coreg. 5. UTI on antibiotics. 6. Hypokalemia from poor intake. Replaced. 7. Anemia of chronic kidney disease. Iron deficiency noted. Status post IV iron completed August 06, 2024. 8. Metabolic acidosis secondary to chronic kidney disease and IV fluids. Status post bicarb drip. Now on oral bicarb. 9. Lower extremity edema. Status post IV Lasix yesterday. Plan: increased diuretics to help improve blood pressure control. Switch Norvasc to Procardia Add chlorthalidone
[2024-08-09 11:37] LABS: Glucose,Whole Blood 96 mg/dL (70-110)
--- NOTE | 2024-08-09 12:13 | P.PN ---
Subjective Progress Note Date: 08/09/24 Principal diagnosis: Reason for follow-up is possible pneumonia/leukocytosis Patient is a 74-year-old -[place] male with a past medical history significant for diabetes mellitus hypertension hyperlipidemia osteoarthritis CVA TIA in this patient who is a skilled nursing resident patient has been brought into the hospital concerning for increasing confusion and fever patient has been diagnosed with sepsis possible related to the pneumonia less likely UTI. On today's evaluation that is 08/09/2024,the patient denies any fever or any chills, patient is breathing comfortably on room air, the patient denies chest pain shortness of breath and no significant cough, patient denies abdominal pain, no nausea vomiting or diarrhea. Patient white count is down to 16.2, creatinine is 2.59 Percocet is down to 5.12 chest x-ray reported negative Objective - Vital Signs Vital signs: Vital Signs Temp 98.5 F 08/09/24 08:00 Pulse 69 08/09/24 08:00 Resp 16 08/09/24 08:00 BP 201/75 08/09/24 08:00 Pulse Ox 99 08/09/24 08:00 FiO2 Intake & Output 08/08/24 08/09/24 08/09/24 18:59 06:59 18:59 Intake Total 40 Output Total 700 375 Balance -660 -375 Weight 99.5 kg Intake: IV 40 Invasive Line 4 20 Invasive Line 5 20 Oral 0 Output: Urine 700 375 Other: Voiding Method Indwelling Catheter Indwelling Catheter Indwelling Catheter # Bowel Movements 1 1 - Exam GENERAL DESCRIPTION: An elderly male lying in bed in no distress RESPIRATORY SYSTEM: Unlabored breathing , decreased breath sounds at bases HEART: S1 S2 regular rate and rhythm , ABDOMEN: Soft , no tenderness EXTREMITIES: No edema feet - Labs CBC & Chem 7: 08/09/24 07:10 08/09/24 07:10 Labs: Abnormal Lab Results - Last 24 Hours (Table) 08/08/24 08/08/24 08/08/24 Range/Units 12:10 14:50 16:18 WBC (3.8-10.6) k/uL RBC (4.30-5.90) m/uL Hgb (13.0-17.5) gm/dL Hct (39.0-53.0) % MCHC (31.0-37.0) g/dL RDW (11.5-15.5) % Neutrophils # (1.3-7.7) k/uL Potassium (3.5-5.1) mmol/L Chloride 110 H (98-107) mmol/L BUN 26 H (9-20) mg/dL Creatinine 2.41 H (0.66-1.25) mg/dL Glucose 169 H (74-99) mg/dL POC Glucose (mg/dL) 122 H 183 H (70-110) mg/dL C-Reactive Protein (0.00-0.80) mg/dL Procalcitonin (0.02-0.50) ng/mL 08/08/24 08/09/24 08/09/24 Range/Units 19:55 06:01 07:10 WBC (3.8-10.6) k/uL RBC (4.30-5.90) m/uL Hgb (13.0-17.5) gm/dL Hct (39.0-53.0) % MCHC (31.0-37.0) g/dL RDW (11.5-15.5) % Neutrophils # (1.3-7.7) k/uL Potassium (3.5-5.1) mmol/L Chloride (98-107) mmol/L BUN (9-20) mg/dL Creatinine (0.66-1.25) mg/dL Glucose (74-99) mg/dL POC Glucose (mg/dL) 216 H 122 H (70-110) mg/dL C-Reactive Protein (0.00-0.80) mg/dL Procalcitonin 5.12 H (0.02-0.50) ng/mL 08/09/24 08/09/24 08/09/24 Range/Units 07:10 07:10 07:10 WBC 16.2 H (3.8-10.6) k/uL RBC 2.96 L (4.30-5.90) m/uL Hgb 8.0 L (13.0-17.5) gm/dL Hct 25.9 L (39.0-53.0) % MCHC 30.7 L (31.0-37.0) g/dL RDW 18.2 H (11.5-15.5) % Neutrophils # 13.5 H (1.3-7.7) k/uL Potassium 3.4 L (3.5-5.1) mmol/L Chloride 113 H (98-107) mmol/L BUN 26 H (9-20) mg/dL Creatinine 2.59 H (0.66-1.25) mg/dL Glucose 117 H (74-99) mg/dL POC Glucose (mg/dL) (70-110) mg/dL C-Reactive Protein 1.80 H (0.00-0.80) mg/dL Procalcitonin (0.02-0.50) ng/mL Assessment and Plan (1) Sepsis Current Visit: Yes Status: Acute Code(s): A41.9 - SEPSIS, UNSPECIFIED ORGANISM SNOMED Code(s): 12228249 (2) Pneumonia Current Visit: No Status: Acute Code(s): J18.9 - PNEUMONIA, UNSPECIFIED ORGANISM SNOMED Code(s): 262429952 Plan: 1patient presented to hospital with sepsis in this patient who did have fever elevated white count source is likely pneumonia as patient did have significant respiratory symptom of cough with sputum production and skilled nursing resident will need to cover for resistant gram-negative to be the likely pathogen did have a positive UA urinary source less likely 2sputum has not been collected and procalcitonin was more than 100 however repeat procalcitonin is down to 5.12 4patient did have resolution of his fever white count is trending down compared to yesterday chest x-ray was reported negative for any consolidation and the patient still have elevated white count we will check a CT abdominal pelvis with oral contrast to rule out any intra-abdominal source Dictation was produced using [employer] dictation software. please excuse any grammatical, word or spelling errors. Time with Patient: Less than 30
[2024-08-09] MEDS: IOPAMIDOL CONTRAST (ORAL USE) VIAL PO PRN (13:12)
[2024-08-09] MEDS: POTASSIUM CHLORIDE ER 20 MEQ TAB.ER PO STA (13:23)
[2024-08-09] MEDS: CHLORTHALIDONE 25 MG TAB PO SCH (13:24)
[2024-08-09] MEDS ORDERED: CYCLOBENZAPRINE 10 MG TAB PO PRN (14:11)
[2024-08-09] MEDS: amLODIPine 10 MG TAB PO SCH (15:11)
[2024-08-09 16:18] LABS: Glucose,Whole Blood 87 mg/dL (70-110)
[2024-08-09] MEDS: carvediloL 12.5 MG TAB PO SCH (16:55)
[2024-08-09] MEDS: GABAPENTIN 100 MG CAP PO SCH (16:59)
[2024-08-09] MEDS: SODIUM BICARBONATE TAB 650 MG TAB PO SCH (16:59)
--- NOTE | 2024-08-09 19:24 | CT ---
EXAMINATION TYPE: CT chest wo con DATE OF EXAM: 08/09/2024 3:38 PM COMPARISON: 03/14/2020 CLINICAL INDICATION: Male, 74 years old with history of short of breath, chf, short of breath, chf TECHNIQUE: Axial images were obtained at 5 mm thick sections. Reconstructed images are reviewed on [employer] computer in the coronal plane. Contrast used: mL of , (none if empty) Oral contrast used: (none if empty) CT DLP: 2090.8 mGycm, Automated exposure control for dose reduction was used. FINDINGS: Portion of the thyroid visualized is normal. There is a small left pleural effusion. There is patchy densities within the left lower lobe. Correla te for pneumonia or underlying masses are not excluded. Follow-up to clearing is recommended. No enlarged mediastinal or hilar adenopathy is evident. The ascending aorta diameter at the level o f the main pulmonary artery is 3.6 cm. The main pulmonary artery diameter at the bifurcation is 3.[address] sections are obtained through the upper abdomen. Abdomen is essentially unremarkable. IMPRESSION: 1. Left lower lobe consolidation. Correlate for pneumonia. This should be followed to clearing. Under lying masses are not excluded. 2. Small left pleural effusion [facility], , 08/09/2024 7:22 PM
[2024-08-09 20:01] LABS: Glucose,Whole Blood 180 mg/dL (70-110)
--- NOTE | 2024-08-09 22:05 | CT ---
EXAMINATION TYPE: CT abdomen pelvis wo con DATE OF EXAM: 08/09/2024 3:38 PM COMPARISON: 724 CLINICAL INDICATION: Male, 74 years old with history of abd pain, abd pain TECHNIQUE: Axial images were obtained from above the diaphragm to the pubic rami in the axial plane a t 5 mm thick sections. Reconstructed images are reviewed on the computer in the coronal plane. CONTRAST: mL of . Study performed with Oral Contrast DLP: 2090.8 mGycm, Automated exposure control for dose reduction was used. FINDINGS: Limited CT sections are obtained the lung bases. See CT chest same date. CT ABDOMEN: Multiple metallic foreign bodies are within the arm and within the left upper quadrant ab domen. Liver: Normal Spleen: Normal Pancreas: Normal Adrenal glands: The adrenal glands are normal. Gallbladder: Normal Kidneys: No masses are evident. No hydronephrosis is present. May be a small cyst at the inferior p ole left kidney No renal stones are evident. Aorta: Vascular calcification is within the aorta. Inferior vena cava: Normal. CT PELVIS: Loops of bowel within the abdomen and pelvis are normal. Air-fluid levels are present. Air-fluid leve ls are: Well. Consider gastroenteritis and ileus. No suspicious dilated bowel to suggest obstruction. There are loops of bowel which are incompletely distended or lack oral contrast limiting their ev aluation. Appendix: Normal as visualized. Urinary bladder: Bladder contains air which may be related to instrumentation. Montoya catheter is pres ent. Genitourinary structures: Prostate appears normal Osseous structures: No suspicious lytic or sclerotic lesions. IMPRESSION: 1. Nonspecific bowel. No obstruction evident. Follow-up can be performed as clinically indicated [facility], , 08/09/2024 10:02 PM
[2024-08-09] MEDS: cloNIDine HCL 0.2 MG TAB PO PRN (23:44)
--- NOTE | 2024-08-10 | PN ---
PROGRESS NOTE DATE OF SERVICE: 08/09/2024 SUBJECTIVE: This is a 74-year-old gentleman who was admitted with sepsis from possible pneumonia, also on IV antibiotics. The patient has mucopurulent sputum. The patient has shortness of breath. The most recent chest x-ray which I reviewed personally showed bilateral infiltrates also. PAST MEDICAL HISTORY: Reviewed. REVIEW OF SYSTEMS: Could not be taken. The patient is confused. CURRENT MEDICATIONS: Reviewed. PHYSICAL EXAMINATION: VITAL SIGNS: Pulse is 69, blood pressure 201/74, respirations 16. CHEST: A few scattered rhonchi and crackles. ABDOMEN: Soft, nontender. LEGS: No edema. NERVOUS SYSTEM: Diffusely weak. LABORATORY DATA: WBC 16.2. Other labs are noted. Procalcitonin 5.12. ASSESSMENT: 1. Pneumonia with possible sepsis with continued mucopurulent sputum. 2. Hypertension. 3. Acute renal failure. 4. Diabetes mellitus, type 2. 5. History of cerebrovascular accident. 6. Multiple complex medical issues. RECOMMENDATIONS: Recommend to continue current management. Continue symptomatic treatment. I would recommend to add Norvasc to the current regimen. Increase the dose of Coreg to 50 mg p.o. b.i.d. I would also recommend to continue with IV Zosyn. Follow sputum cultures. CT of the chest to rule out the possibility of empyema or lung abscess. Guarded prognosis because of multiple complex medical issues. Further recommendations to follow. MMKIMANIL / LINDSEYN: [id number] /
[2024-08-10 05:59] LABS: Glucose,Whole Blood 121 mg/dL (70-110)
[2024-08-10] MEDS: INSULIN DETEMIR (LEVEMIR) 100 UNIT/ML SYR SQ SCH (08:35)
[2024-08-10 08:57] LABS: Anisocytosis Slight; HCT 28.6 % (39.0-53.0); HGB 8.5 gm/dL (13.0-17.5); Hypochromasia Marked; MCH 27.3 pg (25.0-35.0); MCHC 29.8 g/dL (31.0-37.0); MCV 91.8 fL (80.0-100.0); Mean Platelet Volume 8.6; Platelet Count 332 k/uL (150-450); RBC 3.11 m/uL (4.30-5.90); RDW 18.1 % (11.5-15.5); WBC 14.8 k/uL (3.8-10.6)
[2024-08-10 09:10] LABS: African American GFR (CKD) 27 (>60 ml/min/1.73 sqM); Anion Gap 7 mmol/L; Blood Urea Nitrogen 23 mg/dL (9-20); Calcium 9.1 mg/dL (8.4-10.2); Carbon Dioxide 22 mmol/L (22-30); Chloride 109 mmol/L (98-107); Glucose 109 mg/dL (74-99); Non-African American GFR(CKD) 23 (>60 ml/min/1.73 sqM); Potassium 3.7 mmol/L (3.5-5.1); Sodium 138 mmol/L (137-145)
[2024-08-10 11:29] LABS: Glucose,Whole Blood 168 mg/dL (70-110)
--- NOTE | 2024-08-10 11:36 | P.PN ---
Subjective patient is seen for follow-up for acute kidney injury and chronic kidney disease. No significant complaints today. Serum creatinine at 2.65 mg/dL. Started on chlorthalidone yesterday and Lasix was discontinued. Patient's blood pressure has been elevated and the Norvasc was switched to Procardia. Patient had been on clonidine at home and this will be restarted as well. Objective - Vital Signs Vital signs: Vital Signs Temp 98.3 F 08/10/24 08:02 Pulse 69 08/10/24 08:02 Resp 14 08/10/24 08:02 BP 145/73 08/10/24 08:02 Pulse Ox 100 08/10/24 08:02 FiO2 Intake & Output 08/09/24 08/10/24 08/10/24 18:59 06:59 18:59 Intake Total 118 Output Total 1000 450 Balance -882 -450 Weight 100.5 kg Intake: Oral 118 Output: Urine 1000 450 Other: Voiding Method Indwelling Catheter Indwelling Catheter Indwelling Catheter # Bowel Movements 1 1 - Exam patient is awake, comfortable, no acute distress. Examination of the heart S1 and S2 Examination of the lungs bilateral breath sounds are heard Abdomen is soft nontender Examination of lower extremity shows trace edema bilaterally. Patient has left upper extremity contracture. He does not move his legs much. - Labs CBC & Chem 7: 08/10/24 08:35 08/10/24 08:35 Labs: Abnormal Lab Results - Last 24 Hours (Table) 08/09/24 08/09/24 08/10/24 Range/Units 07:10 20:00 05:57 WBC (3.8-10.6) k/uL RBC (4.30-5.90) m/uL Hgb (13.0-17.5) gm/dL Hct (39.0-53.0) % MCHC (31.0-37.0) g/dL RDW (11.5-15.5) % Chloride (98-107) mmol/L BUN (9-20) mg/dL Creatinine (0.66-1.25) mg/dL Glucose (74-99) mg/dL POC Glucose (mg/dL) 180 H 121 H (70-110) mg/dL C-Reactive Protein 1.80 H (0.00-0.80) mg/dL 08/10/24 08/10/2408/10/24 Range/Units 08:35 08:35 11:28 WBC 14.8 H (3.8-10.6) k/uL RBC 3.11 L (4.30-5.90) m/uL Hgb 8.5 L (13.0-17.5) gm/dL Hct 28.6 L (39.0-53.0) % MCHC 29.8 L (31.0-37.0) g/dL RDW 18.1 H (11.5-15.5) % Chloride 109 H (98-107) mmol/L BUN 23 H (9-20) mg/dL Creatinine 2.65 H (0.66-1.25) mg/dL Glucose 109 H (74-99) mg/dL POC Glucose (mg/dL) 168 H (70-110) mg/dL C-Reactive Protein (0.00-0.80) mg/dL Microbiology - Last 24 Hours (Table) 08/08/24 14:50 Blood Culture - Preliminary Blood Assessment and Plan Assessment: 1. Acute kidney injury secondary to ATN secondary to severe sepsis. Renal function improving. Creatinine 2.34 dated August 06, 2024. 2. Chronic kidney disease stage IV baseline creatinine 3.1-3.4 secondary to diabetic kidney disease. Last creatinine 2.34 dated August 06, 2024. Will need to establish new baseline renal function. 3. Diabetes mellitus. 4. Hypertension with chronic kidney disease. Uncontrolled. Maintained on hydralazine, Norvasc and Coreg. 5. UTI on antibiotics. 6. Hypokalemia from poor intake. Replaced. 7. Anemia of chronic kidney disease. Iron deficiency noted. Status post IV iron completed August 06, 2024. 8. Metabolic acidosis secondary to chronic kidney disease and IV fluids. Status post bicarb drip. Now on oral bicarb. 9. Lower extremity edema. Status post IV Lasix yesterday. Plan: continue with chlorthalidone Switch clonidine to scheduled dose as patient was maintained on it at home. Repeat labs in a.m.
--- NOTE | 2024-08-10 12:51 | P.PN ---
Subjective Progress Note Date: 08/10/24 Principal diagnosis: Reason for follow-up is possible pneumonia/leukocytosis Patient is a 74-year-old -[place] male with a past medical history significant for diabetes mellitus hypertension hyperlipidemia osteoarthritis CVA TIA in this patient who is a longterm resident patient has been brought into the hospital concerning for increasing confusion and fever patient has been diagnosed with sepsis possible related to the pneumonia less likely UTI. On today's evaluation that is 08/10/2024,the patient remains to be afebrile, patient is on room air not requiring supplemental oxygen and denies any shortness of breath no chest pain or cough.Patient denies having any nausea or vomiting, no abdominal pain and no diarrhea, patient mention feeling better. Patient white count is down to 14.8, creatinine is 2.[address] a [address] abdominal pelvis did not show any intra-abdominal pathology CT chest shows left lower lobe pneumonia Objective - Vital Signs Vital signs: Vital Signs Temp 98.7 F 08/10/24 12:18 Pulse 67 08/10/24 12:18 Resp 14 08/10/24 12:18 BP 169/71 08/10/24 12:18 Pulse Ox 100 08/10/24 12:18 FiO2 Intake & Output 08/09/24 08/10/24 08/10/24 18:59 06:59 18:59 Intake Total 118 Output Total 1000 450 Balance -882 -450 Weight 100.5 kg Intake: Oral 118 Output: Urine 1000 450 Other: Voiding Method Indwelling Catheter Indwelling Catheter Indwelling Catheter # Bowel Movements 1 1 - Exam GENERAL DESCRIPTION: An elderly male lying in bed in no distress RESPIRATORY SYSTEM: Unlabored breathing , decreased breath sounds at bases HEART: S1 S2 regular rate and rhythm , ABDOMEN: Soft , no tenderness EXTREMITIES: No edema feet - Labs CBC & Chem 7: 08/10/24 08:35 08/10/24 08:35 Labs: Abnormal Lab Results - Last 24 Hours (Table) 08/09/24 08/10/24 08/10/24 Range/Units 20:00 05:57 08:35 WBC 14.8 H (3.8-10.6) k/uL RBC 3.11 L (4.30-5.90) m/uL Hgb 8.5 L (13.0-17.5) gm/dL Hct 28.6 L (39.0-53.0) % MCHC 29.8 L (31.0-37.0) g/dL RDW 18.1 H (11.5-15.5) % Chloride (98-107) mmol/L BUN (9-20) mg/dL Creatinine (0.66-1.25) mg/dL Glucose (74-99) mg/dL POC Glucose (mg/dL) 180 H 121 H (70-110) mg/dL 08/10/24 08/10/24 Range/Units 08:35 11:28 WBC (3.8-10.6) k/uL RBC (4.30-5.90) m/uL Hgb (13.0-17.5) gm/dL Hct (39.0-53.0) % MCHC (31.0-37.0) g/dL RDW (11.5-15.5) % Chloride 109 H (98-107) mmol/L BUN 23 H (9-20) mg/dL Creatinine 2.65 H (0.66-1.25) mg/dL Glucose 109 H (74-99) mg/dL POC Glucose (mg/dL) 168 H (70-110) mg/dL Microbiology - Last 24 Hours (Table) 08/08/24 14:50 Blood Culture - Preliminary Blood Assessment and Plan (1) Sepsis Current Visit: Yes Status: Acute Code(s): A41.9 - SEPSIS, UNSPECIFIED ORGANISM SNOMED Code(s): 73864140 (2) Pneumonia Current Visit: No Status: Acute Code(s): J18.9 - PNEUMONIA, UNSPECIFIED ORGANISM SNOMED Code(s): 916038511 Plan: 1patient presented to hospital with sepsis in this patient who did have fever elevated white count source is likely pneumonia as patient did have significant respiratory symptom of cough with sputum production and longterm resident will need to cover for resistant gram-negative to be the likely pathogen did have a positive UA urinary source less likely 2sputum has not been collected and procalcitonin was more than 100 however repeat procalcitonin is down to 5.12 4patient did have resolution of his fever white count is trending down CT abdo praveen pelvis did not show any intra-abdominal pathology CT of the chest with a left lower lobe pneumonia plan is to continue with IV Zosyn on discharge for the 7 to 10 days on discharge, discussed with the [facility] for admitting team Dictation was produced using [employer] dictation software. please excuse any grammatical, word or spelling errors. Time with Patient: Less than 30
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
[2024-08-10 16:37] LABS: Glucose,Whole Blood 135 mg/dL (70-110)
[2024-08-10 16:58] VITALS: BP 165/73; PULSE 70; RESP 16; TEMP 98.4
[2024-08-10] MEDS ORDERED: cloNIDine HCL 0.1 MG TAB PO SCH (21:00)
[2024-08-11] MEDS ORDERED: cloNIDine HCL 0.1 MG TAB PO SCH (09:00)
== END 2024-08-10 17:55 | DRG 871 ==
LOC: EC 15:48 → 4SSUR 18:03 → 3SCARD 08-01 01:52
PROVIDERS: ADMIT Internal Medicine Geriatric Medicine; ATTEND Internal Medicine Geriatric Medicine
PROC: 02HV33Z Insertion of Infusion Device into Superior Vena Cava, Percutaneous Approach (ICD-10-PCS; principal; 2024-07-31)
PROC: 02HV33Z Insertion of Infusion Device into Superior Vena Cava, Percutaneous Approach (ICD-10-PCS; 2024-08-06 11:05)
DX: A41.9 Sepsis, unspecified organism (principal); G93.41 Metabolic encephalopathy; N17.0 Acute kidney failure with tubular necrosis; J18.9 Pneumonia, unspecified organism; N39.0 Urinary tract infection, site not specified; E87.20 Acidosis, unspecified; N18.4 Chronic kidney disease, stage 4 (severe); R65.20 Severe sepsis without septic shock; D63.1 Anemia in chronic kidney disease; E66.9 Obesity, unspecified; Z68.32 Body mass index [BMI] 32.0-32.9, adult; E11.22 Type 2 diabetes mellitus with diabetic chronic kidney disease; E78.5 Hyperlipidemia, unspecified; F41.9 Anxiety disorder, unspecified; F31.9 Bipolar disorder, unspecified; F20.9 Schizophrenia, unspecified; E87.6 Hypokalemia; I12.9 Hypertensive chronic kidney disease with stage 1 through stage 4 chronic kidney disease, or unspecified chronic kidney disease; Z74.01 Bed confinement status; N40.0 Benign prostatic hyperplasia without lower urinary tract symptoms; Z79.4 Long term (current) use of insulin; Z79.02 Long term (current) use of antithrombotics/antiplatelets; Z79.82 Long term (current) use of aspirin; Z79.899 Other long term (current) drug therapy; Z86.73 Personal history of transient ischemic attack (TIA), and cerebral infarction without residual deficits
CPT/HCPCS: 36410; 36415; 71045; 71046; 71250; 74176; 76770; 76937; 80048; 80053; 81001; 82728; 83540; 83550; 83605; 83735; 84100; 84145; 85025; 85027; 86140; 87040; 87086; 87324; 87636; 96361; 96365; 96366; 96367; 96368; 99291